=== PATIENT | female | born 1955 | race African-American/Black ===

== ENCOUNTER → 2016-08-18 | Outpatient (CLI) | payer BC ==
[2016-08-18 11:40] LABS: BASOPHILS % 0.9 % (0.0-2.0); EOSINOPHILS % 2.7 % (0.0-5.0); HEMATOCRIT. 38.7 % (36.0-48.0); HEMOGLOBIN. 12.6 g/dL (12.0-16.0); LYMPHOCYTES % 16.1 % (20.0-50.0); MEAN CORPUSCULAR HGB CONC 32.5 g/dL (31.0-37.0); MEAN CORPUSCULAR VOLUME 80.1 fL (81.0-99.0); MEAN PLATELET VOLUME 7.9 fl (7.4-10.4); MONOCYTES % 6.1 % (2.0-8.0); NEUTROPHILS % 74.2 % (40.0-76.0); PLATELET 254 x1000/uL (130-400); RED BLOOD CELL COUNT 4.84 mill/uL (4.2-5.4); RED CELL DISTRIBUTION WIDTH 16.1 % (11.6-14.6); WHITE BLOOD COUNT 6.7 x1000/uL (4.5-11.0)
[2016-08-18 12:09] LABS: ALANINE AMINOTRANSFERASE 18 IU/L (13-61); ALBUMIN 3.5 g/dL (3.4-5.0); ANION GAP 12; CALCIUM 9.3 mg/dL (8.5-10.1); CARBON DIOXIDE 29 mEq/L (21-32); CHLORIDE 105 mEq/L (98-107); HDL CHOLESTEROL 56 mg/dL (40-59); INDEX HEMOLYSI 1 (1-3); INDEX ICTERIC 1 (1-4); INDEX LIPEMIC 1 (1-3); LDL CHOLESTEROL 135 mg/dL (5-100); T4 FREE 1.38 ng/dL (0.76-1.46); TRIGLYCERIDE 85 mg/dL (0-150); UREA NITROGEN BLOOD 20 mg/dL (7-21); eGFR > 60 mL/min (>60)
[2016-08-18 14:09] LABS: CLARITY URINE CLEAR (CLEAR); COLOR URINE YELLOW (YELLOW); GLUCOSE URINE 3+ (NEGATIVE); KETONES URINE NEGATIVE (NEGATIVE); LEUKOCYTE ESTERASE URINE NEGATIVE (NEGATIVE); NITRITE URINE NEGATIVE (NEGATIVE); OCCULT BLOOD URINE NEGATIVE (NEGATIVE); PROTEIN URINE NEGATIVE (NEGATIVE); SPECIFIC GRAVITY URINE 1.024 (1.005-1.030); UROBILINOGEN URINE 0.2 E.U./dL (0.2-1.0)
[2016-08-18 15:20] LABS: SQUAMOUS EPITHELIAL CELL URINE RARE /lpf (RARE/1+)
[2016-08-18 15:21] LABS: BACTERIA URINE TRACE; RBC URINE 0-2 /hpf (0-2); WBC URINE 0-2 /hpf (0-2)
[2016-08-19 13:30] LABS: *CREATININE RANDOM URINE 35.4 mg/dL (Not Estab.); MICROALBUMIN RANDOM URINE 16.6 ug/mL (Not Estab.); MICROALBUMIN/CREATININE RATIO 46.9 mg/g creat (0.0-30.0)
== END | disposition home or self-care (01) ==
LOC: LAB 11:13
PROVIDERS: ATTEND Internal Medicine Endocrinology, Diabetes & Metabolism
DX: E11.9 Type 2 diabetes mellitus without complications (principal); I10 Essential (primary) hypertension; N39.498 Other specified urinary incontinence; E55.9 Vitamin D deficiency, unspecified; E03.9 Hypothyroidism, unspecified
CPT/HCPCS: 36415; 80053; 80061; 81001; 82043; 82306; 82570; 83036; 84439; 84443; 85025; 87086

== ENCOUNTER → 2016-11-23 | Outpatient (CLI) | payer BC ==
[2016-11-23 10:02] LABS: BASOPHILS % 0.8 % (0.0-2.0); EOSINOPHILS % 2.8 % (0.0-5.0); HEMATOCRIT. 37.4 % (36.0-48.0); HEMOGLOBIN. 12.1 g/dL (12.0-16.0); LYMPHOCYTES % 13.7 % (20.0-50.0); MEAN CORPUSCULAR HEMOGLOBIN 26.1 pg (28.0-32.0); MEAN CORPUSCULAR VOLUME 80.7 fL (81.0-99.0); MEAN PLATELET VOLUME 7.7 fl (7.4-10.4); MONOCYTES % 7.1 % (2.0-8.0); NEUTROPHILS % 75.6 % (40.0-76.0); PLATELET 266 x1000/uL (130-400); RED BLOOD CELL COUNT 4.63 mill/uL (4.2-5.4); RED CELL DISTRIBUTION WIDTH 17.1 % (11.6-14.6)
[2016-11-23 10:10] LABS: CLARITY URINE CLEAR (CLEAR); COLOR URINE YELLOW (YELLOW); GLUCOSE URINE 3+ (NEGATIVE); KETONES URINE NEGATIVE (NEGATIVE); LEUKOCYTE ESTERASE URINE 1+ (NEGATIVE); NITRITE URINE NEGATIVE (NEGATIVE); OCCULT BLOOD URINE NEGATIVE (NEGATIVE); PROTEIN URINE NEGATIVE (NEGATIVE); SPECIFIC GRAVITY URINE 1.024 (1.005-1.030); UROBILINOGEN URINE 0.2 E.U./dL (0.2-1.0)
[2016-11-23 10:59] LABS: CARBON DIOXIDE 30 mEq/L (21-32); CHLORIDE 103 mEq/L (98-107); HDL CHOLESTEROL 54 mg/dL (40-59); LDL CHOLESTEROL 102 mg/dL (5-100); T4 FREE 1.22 ng/dL (0.76-1.46)
[2016-11-24 13:08] LABS: MICROALBUMIN RANDOM URINE 11.9 ug/mL (Not Estab.); MICROALBUMIN/CREATININE RATIO 12.5 mg/g creat (0.0-30.0)
== END | disposition home or self-care (01) ==
LOC: LAB 09:31
PROVIDERS: ATTEND Internal Medicine Endocrinology, Diabetes & Metabolism
DX: I10 Essential (primary) hypertension (principal); E11.9 Type 2 diabetes mellitus without complications; E03.9 Hypothyroidism, unspecified; N31.1 Reflex neuropathic bladder, not elsewhere classified; E55.9 Vitamin D deficiency, unspecified
CPT/HCPCS: 36415; 80053; 80061; 81001; 82043; 82306; 82570; 83036; 84439; 84443; 85025; 87086

== ENCOUNTER 2016-12-28 13:32 | Emergency (ER) | payer BC ==
[~2016-12-28] VITALS: Ht 162.6 cm; Wt 128.0 kg
[2016-12-28] MEDS ORDERED: TETANUS, DIPHTHERIA, PERTUSSIS VAC/PF 0.5ML (>7YR OLD) IM ONE (14:30)
[2016-12-28] MEDS ORDERED: BACITRACIN ZINC OINT UDPKT TOP ONE (14:30)
[2016-12-28] MEDS ORDERED: ACETAMINOPHEN 500MG TABLET PO ONE (14:30)
[2016-12-28] MEDS ORDERED: LIDOCAINE HCL 1% 20ML VIAL (Pyxis) INJ MC ONE (17:00)
[2016-12-28 18:51] VITALS: BP 122/78
== END 2016-12-28 18:56 | disposition home or self-care (01) ==
LOC: ER 14:03
DX: S01.81XA Laceration without foreign body of other part of head, initial encounter (principal); I50.9 Heart failure, unspecified; I11.0 Hypertensive heart disease with heart failure; W01.0XXA Fall on same level from slipping, tripping and stumbling without subsequent striking against object, initial encounter; E11.9 Type 2 diabetes mellitus without complications
CPT/HCPCS: 12011; 90471; 90715; 99283; J3490; Z7610

== ENCOUNTER → 2016-12-28 | Outpatient (CLI) | payer BC | END | disposition home or self-care (01) | LOC: PVL 11:09 | PROVIDERS: ATTEND Internal Medicine Endocrinology, Diabetes & Metabolism | DX: I73.9 Peripheral vascular disease, unspecified (principal) | CPT/HCPCS: 93306; 93923 ==

== ENCOUNTER 2017-01-03 12:56 | Emergency (ER) | payer BC ==
[~2017-01-03] VITALS: Ht 162.6 cm; Wt 126.0 kg
[2017-01-03 15:13] VITALS: BP 132/73
[2017-01-03] MEDS ORDERED: BACITRACIN ZINC OINT UDPKT TOP ONE (15:30)
== END 2017-01-03 17:03 | disposition home or self-care (01) ==
LOC: ER 17:03
DX: Z48.02 Encounter for removal of sutures (principal); E11.9 Type 2 diabetes mellitus without complications; I11.0 Hypertensive heart disease with heart failure; I50.9 Heart failure, unspecified
CPT/HCPCS: 99282; Z7610

== ENCOUNTER → 2017-03-01 | Outpatient (CLI) | payer BC ==
[2017-03-01 11:04] LABS: BASOPHILS % 0.9 % (0.0-2.0); HEMATOCRIT. 35.7 % (36.0-48.0); HEMOGLOBIN. 11.8 g/dL (12.0-16.0); LYMPHOCYTES % 16.5 % (20.0-50.0); MEAN CORPUSCULAR HEMOGLOBIN 26.6 pg (28.0-32.0); MEAN CORPUSCULAR VOLUME 80.7 fL (81.0-99.0); MEAN PLATELET VOLUME 7.8 fl (7.4-10.4); MONOCYTES % 8.7 % (2.0-8.0); NEUTROPHILS % 71.9 % (40.0-76.0); PLATELET 234 x1000/uL (130-400); RED BLOOD CELL COUNT 4.43 mill/uL (4.2-5.4); RED CELL DISTRIBUTION WIDTH 16.1 % (11.6-14.6)
[2017-03-01 11:22] LABS: CLARITY URINE CLEAR (CLEAR); COLOR URINE YELLOW (YELLOW); GLUCOSE URINE 4+ (NEGATIVE); KETONES URINE NEGATIVE (NEGATIVE); LEUKOCYTE ESTERASE URINE NEGATIVE (NEGATIVE); NITRITE URINE NEGATIVE (NEGATIVE); OCCULT BLOOD URINE NEGATIVE (NEGATIVE); PH URINE 6.5 (4.5-8.0); PROTEIN URINE NEGATIVE (NEGATIVE); SPECIFIC GRAVITY URINE 1.024 (1.005-1.030); UROBILINOGEN URINE 0.2 E.U./dL (0.2-1.0)
[2017-03-01 12:08] LABS: CARBON DIOXIDE 29 mEq/L (21-32); CHLORIDE 102 mEq/L (98-107); HDL CHOLESTEROL 51 mg/dL (40-59); LDL CHOLESTEROL 96 mg/dL (5-100); T4 FREE 1.38 ng/dL (0.76-1.46)
== END | disposition home or self-care (01) ==
LOC: LAB 10:22
PROVIDERS: ATTEND Internal Medicine Endocrinology, Diabetes & Metabolism
DX: I10 Essential (primary) hypertension (principal); E11.9 Type 2 diabetes mellitus without complications; E78.5 Hyperlipidemia, unspecified; E55.9 Vitamin D deficiency, unspecified
CPT/HCPCS: 36415; 80053; 80061; 81001; 82043; 82306; 82570; 83036; 84439; 84443; 85025; 87086; 87536

== ENCOUNTER → 2017-04-14 | Outpatient (CLI) | payer BC | END | disposition home or self-care (01) | LOC: RAD 11:34 | PROVIDERS: ATTEND Internal Medicine | DX: M17.0 Bilateral primary osteoarthritis of knee (principal) | CPT/HCPCS: 73565 ==

== ENCOUNTER → 2017-04-17 | Outpatient (CLI) | payer BC | END | disposition home or self-care (01) | LOC: RAD 16:09 | PROVIDERS: ATTEND Internal Medicine Endocrinology, Diabetes & Metabolism | DX: M47.896 Other spondylosis, lumbar region (principal) | CPT/HCPCS: 72100 ==

== ENCOUNTER → 2017-06-27 | Outpatient (CLI) | payer BC | END | disposition home or self-care (01) | LOC: CARD 10:22 | PROVIDERS: ATTEND Specialist | DX: I27.20 Pulmonary hypertension, unspecified (principal); R94.31 Abnormal electrocardiogram [ECG] [EKG] | CPT/HCPCS: 93225; 93226 ==

== ENCOUNTER → 2017-07-06 | Outpatient (CLI) | payer BC | END | disposition home or self-care (01) | LOC: MAMMO 10:01 | PROVIDERS: ATTEND Internal Medicine Endocrinology, Diabetes & Metabolism | DX: Z12.31 Encounter for screening mammogram for malignant neoplasm of breast (principal) | CPT/HCPCS: 77067 ==

== ENCOUNTER → 2017-08-01 | Outpatient (CLI) | payer BC ==
[2017-08-01 09:48] LABS: BASOPHILS % 1.1 % (0.0-2.0); HEMATOCRIT. 37.5 % (36.0-48.0); HEMOGLOBIN. 12.1 g/dL (12.0-16.0); LYMPHOCYTES % 15.7 % (20.0-50.0); MEAN CORPUSCULAR HEMOGLOBIN 25.4 pg (28.0-32.0); MEAN CORPUSCULAR VOLUME 78.6 fL (81.0-99.0); NEUTROPHILS % 74.2 % (40.0-76.0); PLATELET 269 x1000/uL (130-400); RED BLOOD CELL COUNT 4.77 mill/uL (4.2-5.4)
[2017-08-01 09:59] LABS: CHLORIDE 104 mEq/L (98-107)
[2017-08-01 10:09] LABS: HDL CHOLESTEROL 54 mg/dL (40-59); LDL CHOLESTEROL 105 mg/dL (5-100); T4 FREE 1.32 ng/dL (0.76-1.46)
[2017-08-02 13:07] LABS: *CREATININE RANDOM URINE 55.1 mg/dL (Not Estab.); MICROALBUMIN RANDOM URINE 17.3 ug/mL (Not Estab.)
== END | disposition home or self-care (01) ==
LOC: LAB 07:12
PROVIDERS: ATTEND Internal Medicine Endocrinology, Diabetes & Metabolism
DX: I10 Essential (primary) hypertension (principal); E11.9 Type 2 diabetes mellitus without complications; E78.4 Other hyperlipidemia; E55.9 Vitamin D deficiency, unspecified
CPT/HCPCS: 36415; 80053; 80061; 82043; 82306; 82570; 83036; 84439; 84443; 85025

== ENCOUNTER 2017-09-23 19:47 | Emergency (ER) | payer BC ==
[~2017-09-23] VITALS: Ht 162.6 cm; Wt 127.0 kg
[2017-09-23] MEDS ORDERED: BACITRACIN ZINC OINT UDPKT TOP ONE (21:15)
[2017-09-23] MEDS ORDERED: LIDOCAINE HCL 1% 20ML VIAL (Pyxis) INJ MC ONE (21:15)
[2017-09-23] MEDS ORDERED: LIDOCAINE HCL/PF 1% 10 MG/ML 30ML VIAL IJ NR (21:16)
[2017-09-23 21:50] LABS: CHLORIDE 106 mEq/L (98-107)
[2017-09-24 02:52] VITALS: BP 126/74
== END 2017-09-24 02:54 | disposition home or self-care (01) ==
LOC: ER 22:32
DX: S91.119A Laceration without foreign body of unspecified toe without damage to nail, initial encounter (principal); B35.3 Tinea pedis; E11.9 Type 2 diabetes mellitus without complications; I10 Essential (primary) hypertension; E05.90 Thyrotoxicosis, unspecified without thyrotoxic crisis or storm; W45.8XXA Other foreign body or object entering through skin, initial encounter; Y93.89 Activity, other specified; Y92.018 Other place in single-family (private) house as the place of occurrence of the external cause
CPT/HCPCS: 36415; 73630; 80048; 99285; Z7610; J3490

== ENCOUNTER → 2017-12-19 | Outpatient (CLI) | payer BC ==
[2017-12-19 14:04] LABS: CHLORIDE 105 mEq/L (98-107)
== END | disposition home or self-care (01) ==
LOC: LAB 13:07
DX: B35.1 Tinea unguium (principal); I10 Essential (primary) hypertension; E11.9 Type 2 diabetes mellitus without complications; Z79.82 Long term (current) use of aspirin
CPT/HCPCS: 36415; 80053

== ENCOUNTER → 2017-12-21 | Outpatient (CLI) | payer BC | END | disposition home or self-care (01) | LOC: RAD 06:15 | PROVIDERS: ATTEND Internal Medicine Endocrinology, Diabetes & Metabolism | DX: M25.511 Pain in right shoulder (principal) | CPT/HCPCS: 73030 ==

== ENCOUNTER → 2018-02-12 | Outpatient (CLI) | payer BC ==
[2018-02-12 09:14] LABS: CHLORIDE 106 mEq/L (98-107)
[2018-02-12 09:16] LABS: BASOPHILS % 0.8 % (0.0-2.0); EOSINOPHILS % 2.8 % (0.0-5.0); HEMATOCRIT. 36.4 % (36.0-48.0); HEMOGLOBIN. 11.9 g/dL (12.0-16.0); LYMPHOCYTES % 18.3 % (20.0-50.0); MEAN CORPUSCULAR VOLUME 79.1 fL (81.0-99.0); MEAN PLATELET VOLUME 7.8 fl (7.4-10.4); MONOCYTES % 7.9 % (2.0-8.0); NEUTROPHILS % 70.2 % (40.0-76.0); PLATELET 277 x1000/uL (130-400); RED CELL DISTRIBUTION WIDTH 17.1 % (11.6-14.6)
[2018-02-12 09:22] LABS: LDL CHOLESTEROL 102 mg/dL (5-100)
[2018-02-12 09:24] LABS: HDL CHOLESTEROL 54 mg/dL (40-59); T4 FREE 1.05 ng/dL (0.76-1.46)
== END | disposition home or self-care (01) ==
LOC: LAB 08:24
PROVIDERS: ATTEND Internal Medicine Endocrinology, Diabetes & Metabolism
DX: E11.9 Type 2 diabetes mellitus without complications (principal); I10 Essential (primary) hypertension; E78.5 Hyperlipidemia, unspecified
CPT/HCPCS: 36415; 80053; 80061; 82306; 83036; 84439; 84443; 85025

== ENCOUNTER → 2018-06-04 | Outpatient (CLI) | payer BC ==
[~2018-06-04] MED LIST: AMLO10TA80 PO; ATOR10TA PO; BIOT25008 PO; BIOT5000 PO; CARV12.545 PO; CHOL500010 MT; CLON-457 PO; CYAN1TAB43 MT; DAPA1TAB3 PO; DOCU-155 PO; FURO-151 MT; FURO40TA5 PO; HYDR25TA MT; INSU100I22 SQ; LOSA100T14 PO; MULT-1116 PO; OMEG-95 PO; POTA10TA2 MT; SYN150 PO; TRAM100C3 PO
[2018-06-04 08:27] LABS: BASOPHILS % 0.7 % (0.0-2.0); EOSINOPHILS % 1.9 % (0.0-5.0); HEMATOCRIT. 38.2 % (36.0-48.0); HEMOGLOBIN. 12.3 g/dL (12.0-16.0); LYMPHOCYTES % 19.4 % (20.0-50.0); MEAN CORPUSCULAR HEMOGLOBIN 26.6 pg (28.0-32.0); MEAN CORPUSCULAR VOLUME 82.2 fL (81.0-99.0); MEAN PLATELET VOLUME 7.8 fl (7.4-10.4); MONOCYTES % 8.2 % (2.0-8.0); NEUTROPHILS % 69.8 % (40.0-76.0); PLATELET 273 x1000/uL (130-400); RED BLOOD CELL COUNT 4.64 mill/uL (4.2-5.4); RED CELL DISTRIBUTION WIDTH 15.5 % (11.6-14.6)
[2018-06-04 09:40] LABS: CHLORIDE 106 mEq/L (98-107)
[2018-06-04 09:50] LABS: HDL CHOLESTEROL 57 mg/dL (40-59)
[2018-06-04 09:53] LABS: T4 FREE 1.27 ng/dL (0.76-1.46)
[2018-06-04 09:54] LABS: LDL CHOLESTEROL 102 mg/dL (5-100)
[2018-06-07 13:06] LABS: *CREATININE RANDOM URINE 68.4 mg/dL (Not Estab.); MICROALBUMIN RANDOM URINE 9.1 ug/mL (Not Estab.)
== END | disposition home or self-care (01) ==
LOC: LAB 07:31
PROVIDERS: ATTEND Internal Medicine Endocrinology, Diabetes & Metabolism
DX: E11.9 Type 2 diabetes mellitus without complications (principal); I10 Essential (primary) hypertension; E78.5 Hyperlipidemia, unspecified; E55.9 Vitamin D deficiency, unspecified; E03.9 Hypothyroidism, unspecified
CPT/HCPCS: 36415; 80061; 82043; 82306; 82570; 83036; 84439; 84443

== ENCOUNTER → 2018-06-05 | Outpatient (CLI) | payer BC | END | disposition home or self-care (01) | LOC: LAB 13:09 | PROVIDERS: ATTEND Internal Medicine Pulmonary Disease | DX: I11.0 Hypertensive heart disease with heart failure (principal); I50.9 Heart failure, unspecified; E11.9 Type 2 diabetes mellitus without complications | CPT/HCPCS: 36415; 83880 ==

== ENCOUNTER → 2018-07-03 | Outpatient (CLI) | payer BC | END | disposition home or self-care (01) | LOC: CARD 07:45 | PROVIDERS: ATTEND Specialist | DX: I51.7 Cardiomegaly (principal) | CPT/HCPCS: 93306 ==

== ENCOUNTER 2018-07-09 05:57 | Emergency (ER) | payer BC ==
[~2018-07-09] VITALS: Ht 162.6 cm; Wt 123.0 kg
[2018-07-09] MEDS ORDERED: HYDROCODONE/ACETAMINOPHEN 5/325MG TABLET PO ONE (07:45)
[2018-07-09 10:11] LABS: HEMATOCRIT. 36.9 % (36.0-48.0); HEMOGLOBIN. 11.8 g/dL (12.0-16.0); MEAN CORPUSCULAR HEMOGLOBIN 25.9 pg (28.0-32.0); MEAN PLATELET VOLUME 7.8 fl (7.4-10.4); PLATELET 259 x1000/uL (130-400); RED BLOOD CELL COUNT 4.55 mill/uL (4.2-5.4); RED CELL DISTRIBUTION WIDTH 15.5 % (11.6-14.6)
[2018-07-09 10:16] LABS: CHLORIDE 107 mEq/L (98-107)
[2018-07-09 10:17] LABS: INR 1.1; PROTHROMBIN TIME 11.4 sec (9.1-11.1)
[2018-07-09 10:57] LABS: PLATELET ESTIMATE NORMAL
[2018-07-09 11:13] VITALS: BP 160/80
== END 2018-07-09 11:23 | disposition home or self-care (01) ==
LOC: ER 05:57
DX: M79.662 Pain in left lower leg (principal); E03.9 Hypothyroidism, unspecified; E11.9 Type 2 diabetes mellitus without complications; M19.90 Unspecified osteoarthritis, unspecified site
CPT/HCPCS: 36415; 93971; 99284

== ENCOUNTER 2018-07-11 14:10 | Inpatient (IN) | payer BC ==
[~2018-07-11] VITALS: Ht 162.6 cm; Wt 135.6 kg
[2018-07-11] MEDS ORDERED: ONDANSETRON HCL 4MG/2ML INJ IV STA (23:19)
[2018-07-11] MEDS ORDERED: MORPHINE SULFATE 4 MG/ML CPJ (NOT FOR IM USE) IV STA (23:19)
[2018-07-11] MEDS ORDERED: SODIUM CHLORIDE 0.9% 1,000 ML IV ONE (23:19)
[2018-07-11] MEDS ORDERED: PIPERACILLIN/TAZ 3.375G PREMIX 50 ML IV ONE (23:30)
[2018-07-11] MEDS ORDERED: VANCOMYCIN 1 G PREMIX 200 ML IV ONE (23:30)
[2018-07-11] MEDS ORDERED: PIPERACILLIN/TAZ 3.375G PREMIX 50 ML IV SCH (23:45)
[2018-07-12 00:34] LABS: HEMATOCRIT. 34.9 % (36.0-48.0); HEMOGLOBIN. 11.4 g/dL (12.0-16.0); MEAN CORPUSCULAR HEMOGLOBIN 26.1 pg (28.0-32.0); MEAN CORPUSCULAR VOLUME 80.3 fL (81.0-99.0); MEAN PLATELET VOLUME 8.3 fl (7.4-10.4); PLATELET 258 x1000/uL (130-400); RED BLOOD CELL COUNT 4.35 mill/uL (4.2-5.4); RED CELL DISTRIBUTION WIDTH 15.3 % (11.6-14.6)
[2018-07-12 00:37] LABS: CHLORIDE 103 mEq/L (98-107)
[2018-07-12 01:06] LABS: PLATELET ESTIMATE NORMAL
[2018-07-12 02:12] LABS: CLARITY URINE CLEAR (CLEAR); COLOR URINE YELLOW (YELLOW); KETONES URINE NEGATIVE (NEGATIVE); LEUKOCYTE ESTERASE URINE 1+ (NEGATIVE); NITRITE URINE NEGATIVE (NEGATIVE); OCCULT BLOOD URINE NEGATIVE (NEGATIVE); PROTEIN URINE TRACE (NEGATIVE); SPECIFIC GRAVITY URINE 1.024 (1.005-1.030); UROBILINOGEN URINE 0.2 E.U./dL (0.2-1.0)
[2018-07-12] MEDS ORDERED: CLONIDINE 0.1MG TABLET PO PRN (05:01)
[2018-07-12 05:30] VITALS: BP 127/61
[2018-07-12 05:31] VITALS: BP 127/52
[2018-07-12] MEDS: HYDROMORPHONE HCL/PF 2MG/ML CPJ IV PRN ×4 (05:34→21:47)
[2018-07-12] MEDS: SODIUM CHLORIDE 0.45% 1,000 ML IV SCH ×2 (05:34→18:10)
[2018-07-12] MEDS ORDERED: AMLO10TA80 PO (05:51)
[2018-07-12] MEDS ORDERED: OMEG-95 PO (05:51)
[2018-07-12] MEDS ORDERED: MULT-1116 PO (05:51)
[2018-07-12] MEDS ORDERED: LOSA100T14 PO (05:51)
[2018-07-12] MEDS ORDERED: CARV12.545 PO (05:51)
[2018-07-12] MEDS ORDERED: SYN150 PO (05:51)
[2018-07-12] MEDS: PIPERACILLIN/TAZ 3.375G PREMIX 50 ML IV SCH ×2 (06:31→14:08)
[2018-07-12 08:00] VITALS: BP 132/52
[2018-07-12] MEDS ORDERED: ENOXAPARIN 40MG/0.4ML SYR SUBCUT SCH (09:00)
[2018-07-12] MEDS: ENOXAPARIN 30MG/0.3ML SYR SUBCUT SCH ×2 (09:06→21:40)
[2018-07-12] MEDS: FUROSEMIDE 40MG TABLET PO SCH (11:41)
[2018-07-12] MEDS: POTASSIUM CHLORIDE 10MEQ TABLET SR PO SCH (11:41)
[2018-07-12] MEDS: LEVOTHYROXINE SODIUM 150MCG TABLET PO SCH (11:41)
[2018-07-12] MEDS: AMLODIPINE 10MG TABLET PO SCH (11:41)
[2018-07-12] MEDS: VANCOMYCIN 1 G PREMIX 200 ML IV SCH (11:42)
[2018-07-12] MEDS: LOSARTAN POTASSIUM 100 MG TABLET PO SCH (11:46)
[2018-07-12 12:00] VITALS: BP 129/72
[2018-07-12] MEDS: SILDENAFIL CITRATE 20MG TABLET PO SCH ×2 (14:13→21:40)
[2018-07-12] MEDS ORDERED: CLINDAMYCIN 600 MG in DEXTROSE 5% WATER 50 ML IV SCH (14:15)
[2018-07-12] MEDS ORDERED: DAPA1TAB3 PO (14:36)
[2018-07-12] MEDS ORDERED: HYDR25TA MT (14:37)
[2018-07-12] MEDS ORDERED: FURO-151 MT (14:38)
[2018-07-12] MEDS ORDERED: POTA10TA2 MT (14:40)
[2018-07-12] MEDS ORDERED: CHOL500010 MT (14:42)
[2018-07-12] MEDS ORDERED: CYAN1TAB43 MT (14:43)
[2018-07-12] MEDS ORDERED: INSU100I22 SQ (14:52)
[2018-07-12 16:00] VITALS: BP 132/74
[2018-07-12 16:13] LABS: HEMATOCRIT. 32.2 % (36.0-48.0); HEMOGLOBIN. 10.5 g/dL (12.0-16.0); MEAN CORPUSCULAR HEMOGLOBIN 26.1 pg (28.0-32.0); MEAN CORPUSCULAR VOLUME 80.3 fL (81.0-99.0); PLATELET 271 x1000/uL (130-400); RED BLOOD CELL COUNT 4.01 mill/uL (4.2-5.4); RED CELL DISTRIBUTION WIDTH 15.3 % (11.6-14.6)
[2018-07-12 16:21] LABS: CHLORIDE 104 mEq/L (98-107)
[2018-07-12 16:28] LABS: HDL CHOLESTEROL 44 mg/dL (40-59); LDL CHOLESTEROL 90 mg/dL (5-100)
[2018-07-12] MEDS: CLINDAMYCIN 600MG PREMIX 50 ML IV SCH (16:30)
[2018-07-12 16:49] LABS: PLATELET ESTIMATE NORMAL
[2018-07-12] MEDS ORDERED: DEXTROSE 50% WATER 50ML SYRINGE IV PRN (19:45)
[2018-07-12 20:00] VITALS: BP 141/58
[2018-07-12] MEDS ORDERED: VANCOMYCIN 1,750 MG in DEXT 5% WATER 500 ML IV SCH (21:00)
[2018-07-12] MEDS: FAMOTIDINE 20MG TABLET PO SCH (21:40)
[2018-07-12] MEDS: CARVEDILOL 12.5MG TABLET PO SCH (21:40)
[2018-07-12] MEDS: BLOOD SUGAR DIAGNOSTIC STRIP TEST SCH (21:40)
[2018-07-12] MEDS: INSULIN LISPRO 100 UNITS/ML SUBCUT SCH (21:41)
[2018-07-12] MEDS: ATORVASTATIN CALCIUM 10MG TABLET PO SCH (21:46)
[2018-07-13] VITALS: BP 112/56
[2018-07-13] MEDS: CLINDAMYCIN 600MG PREMIX 50 ML IV SCH ×4 (00:17→23:08)
[2018-07-13] MEDS: HYDROMORPHONE HCL/PF 2MG/ML CPJ IV PRN ×5 (00:51→19:43)
[2018-07-13 04:00] VITALS: BP 126/66
[2018-07-13] MEDS: VANCOMYCIN 1 G PREMIX 200 ML IV SCH (05:16)
[2018-07-13] MEDS: SILDENAFIL CITRATE 20MG TABLET PO SCH ×3 (05:16→21:25)
[2018-07-13] MEDS: BLOOD SUGAR DIAGNOSTIC STRIP TEST SCH ×4 (06:57→21:26)
[2018-07-13] MEDS ORDERED: BIOT5000 PO (07:08)
[2018-07-13] MEDS ORDERED: DAPA1TAB3 PO (07:10)
[2018-07-13] MEDS ORDERED: ATOR10TA PO (07:11)
[2018-07-13 08:00] VITALS: BP 113/65
[2018-07-13] MEDS: LEVOTHYROXINE SODIUM 150MCG TABLET PO SCH (08:48)
[2018-07-13] MEDS: LOSARTAN POTASSIUM 100 MG TABLET PO SCH (08:48)
[2018-07-13] MEDS: FUROSEMIDE 40MG TABLET PO SCH ×2 (08:48→09:00)
[2018-07-13] MEDS: POTASSIUM CHLORIDE 10MEQ TABLET SR PO SCH ×2 (08:48→09:00)
[2018-07-13] MEDS: CARVEDILOL 12.5MG TABLET PO SCH ×2 (08:49→21:25)
[2018-07-13] MEDS: AMLODIPINE 10MG TABLET PO SCH (08:49)
[2018-07-13] MEDS: ENOXAPARIN 30MG/0.3ML SYR SUBCUT SCH ×2 (08:50→21:26)
[2018-07-13] MEDS: INSULIN LISPRO 100 UNITS/ML SUBCUT SCH ×4 (08:50→21:00)
[2018-07-13] MEDS: SODIUM CHLORIDE 0.45% 1,000 ML IV SCH (10:03)
[2018-07-13 12:00] VITALS: BP 103/48
[2018-07-13 16:00] VITALS: BP 99/57
[2018-07-13] MEDS ORDERED: DOCU-155 PO (18:50)
[2018-07-13] MEDS ORDERED: BIOT25008 PO (18:50)
[2018-07-13] MEDS ORDERED: INSU100I22 SQ (18:53)
[2018-07-13] MEDS ORDERED: FURO40TA5 PO (18:53)
[2018-07-13] MEDS ORDERED: CLON-457 PO (18:53)
[2018-07-13] MEDS ORDERED: TRAM100C3 PO (18:53)
[2018-07-13 20:00] VITALS: BP 125/68
[2018-07-13] MEDS: ATORVASTATIN CALCIUM 10MG TABLET PO SCH (21:25)
[2018-07-13] MEDS: FAMOTIDINE 20MG TABLET PO SCH (21:25)
[2018-07-14] VITALS: BP 118/59
[2018-07-14] MEDS: HYDROMORPHONE HCL/PF 2MG/ML CPJ IV PRN ×4 (00:22→21:28)
[2018-07-14] MEDS: VANCOMYCIN 1 G PREMIX 200 ML IV SCH ×2 (00:23→18:34)
[2018-07-14 04:00] VITALS: BP 121/62
[2018-07-14] MEDS: SODIUM CHLORIDE 0.45% 1,000 ML IV SCH ×2 (05:41→21:48)
[2018-07-14] MEDS: SILDENAFIL CITRATE 20MG TABLET PO SCH ×3 (06:05→21:27)
[2018-07-14] MEDS: BLOOD SUGAR DIAGNOSTIC STRIP TEST SCH ×4 (06:05→20:45)
[2018-07-14 06:19] LABS: BASOPHILS % 0.2 % (0.0-2.0); EOSINOPHILS % 1.1 % (0.0-5.0); HEMATOCRIT. 32.2 % (36.0-48.0); HEMOGLOBIN. 10.4 g/dL (12.0-16.0); LYMPHOCYTES % 11.8 % (20.0-50.0); MEAN CORPUSCULAR HEMOGLOBIN 26.1 pg (28.0-32.0); MEAN CORPUSCULAR VOLUME 80.6 fL (81.0-99.0); MEAN PLATELET VOLUME 7.5 fl (7.4-10.4); MONOCYTES % 12.1 % (2.0-8.0); NEUTROPHILS % 74.8 % (40.0-76.0); PLATELET 284 x1000/uL (130-400); RED CELL DISTRIBUTION WIDTH 14.6 % (11.6-14.6)
[2018-07-14] MEDS: LEVOTHYROXINE SODIUM 150MCG TABLET PO SCH (08:51)
[2018-07-14] MEDS: CLINDAMYCIN 600MG PREMIX 50 ML IV SCH (08:51)
[2018-07-14] MEDS: INSULIN LISPRO 100 UNITS/ML SUBCUT SCH ×4 (08:52→21:27)
[2018-07-14] MEDS: POTASSIUM CHLORIDE 10MEQ TABLET SR PO SCH (08:59)
[2018-07-14] MEDS: LOSARTAN POTASSIUM 100 MG TABLET PO SCH (09:00)
[2018-07-14] MEDS: ENOXAPARIN 30MG/0.3ML SYR SUBCUT SCH ×2 (09:00→21:27)
[2018-07-14] MEDS: CARVEDILOL 12.5MG TABLET PO SCH ×2 (09:00→21:00)
[2018-07-14] MEDS: FUROSEMIDE 40MG TABLET PO SCH (09:00)
[2018-07-14] MEDS: AMLODIPINE 10MG TABLET PO SCH (09:00)
[2018-07-14 10:05] LABS: CREATINE KINASE 45 IU/L (26-192)
[2018-07-14 12:30] VITALS: BP 125/49
[2018-07-14] MEDS ORDERED: ACETAMINOPHEN 325MG TABLET PO PRN (15:00)
[2018-07-14 16:11] VITALS: BP 111/53
[2018-07-14] MEDS: CLINDAMYCIN 600 MG in DEXTROSE 5% WATER 50 ML IV SCH (17:15)
[2018-07-14] MEDS: HYDROCODONE/ACETAMINOPHEN 5/325MG TABLET PO PRN (17:20)
[2018-07-14 20:00] VITALS: BP 104/50
[2018-07-14] MEDS: FAMOTIDINE 20MG TABLET PO SCH (21:27)
[2018-07-14] MEDS: ATORVASTATIN CALCIUM 10MG TABLET PO SCH (21:27)
[2018-07-14] MEDS: DOCUSATE SODIUM 100MG CAPSULE PO PRN (21:45)
[2018-07-15] VITALS (7 sets, daily range): BP systolic 104–129; BP diastolic 49–60
[2018-07-15] MEDS: CLINDAMYCIN 600 MG in DEXTROSE 5% WATER 50 ML IV SCH ×3 (00:06→16:29)
[2018-07-15] MEDS: HYDROMORPHONE HCL/PF 2MG/ML CPJ IV PRN ×4 (02:15→18:20)
[2018-07-15 03:08] LABS: CLARITY URINE CLOUDY (CLEAR); COLOR URINE YELLOW (YELLOW); KETONES URINE NEGATIVE (NEGATIVE); LEUKOCYTE ESTERASE URINE 1+ (NEGATIVE); NITRITE URINE NEGATIVE (NEGATIVE); OCCULT BLOOD URINE NEGATIVE (NEGATIVE); PROTEIN URINE NEGATIVE (NEGATIVE); SPECIFIC GRAVITY URINE 1.014 (1.005-1.030); UROBILINOGEN URINE 0.2 E.U./dL (0.2-1.0)
[2018-07-15 06:42] LABS: HEMOGLOBIN. 10.1 g/dL (12.0-16.0); MEAN CORPUSCULAR HEMOGLOBIN 26.1 pg (28.0-32.0); MEAN CORPUSCULAR VOLUME 80.1 fL (81.0-99.0); MEAN PLATELET VOLUME 7.5 fl (7.4-10.4); PLATELET 313 x1000/uL (130-400); RED BLOOD CELL COUNT 3.86 mill/uL (4.2-5.4); RED CELL DISTRIBUTION WIDTH 15.3 % (11.6-14.6)
[2018-07-15 06:51] LABS: CHLORIDE 102 mEq/L (98-107)
[2018-07-15] MEDS: SILDENAFIL CITRATE 20MG TABLET PO SCH ×3 (07:00→21:09)
[2018-07-15] MEDS: BLOOD SUGAR DIAGNOSTIC STRIP TEST SCH ×4 (07:00→21:01)
[2018-07-15] MEDS: INSULIN LISPRO 100 UNITS/ML SUBCUT SCH ×4 (08:10→21:30)
[2018-07-15] MEDS: POTASSIUM CHLORIDE 10MEQ TABLET SR PO SCH (08:43)
[2018-07-15] MEDS: AMLODIPINE 10MG TABLET PO SCH (08:43)
[2018-07-15] MEDS: CARVEDILOL 12.5MG TABLET PO SCH ×2 (08:44→21:00)
[2018-07-15] MEDS: LEVOTHYROXINE SODIUM 150MCG TABLET PO SCH (08:44)
[2018-07-15] MEDS: ENOXAPARIN 30MG/0.3ML SYR SUBCUT SCH ×2 (08:44→21:01)
[2018-07-15] MEDS: LOSARTAN POTASSIUM 100 MG TABLET PO SCH (08:50)
[2018-07-15] MEDS: VANCOMYCIN 1 G PREMIX 200 ML IV SCH (12:07)
[2018-07-15] MEDS: HYDROCODONE/ACETAMINOPHEN 5/325MG TABLET PO PRN (12:24)
[2018-07-15] MEDS: SODIUM CHLORIDE 0.45% 1,000 ML IV SCH (14:12)
[2018-07-15] MEDS: NYSTATIN POWDER 15GM TOP SCH ×2 (14:29→16:39)
[2018-07-15 19:41] LABS: PLATELET ESTIMATE NORMAL
[2018-07-15] MEDS: ATORVASTATIN CALCIUM 10MG TABLET PO SCH (21:01)
[2018-07-15] MEDS: FAMOTIDINE 20MG TABLET PO SCH (21:01)
[2018-07-16 00:15] VITALS: BP 134/61
[2018-07-16] MEDS: CLINDAMYCIN 600 MG in DEXTROSE 5% WATER 50 ML IV SCH ×3 (00:16→16:52)
[2018-07-16 04:00] VITALS: BP 140/62
[2018-07-16] MEDS: VANCOMYCIN 1 G PREMIX 200 ML IV SCH (05:55)
[2018-07-16] MEDS: SILDENAFIL CITRATE 20MG TABLET PO SCH ×3 (05:56→22:02)
[2018-07-16] MEDS: SODIUM CHLORIDE 0.45% 1,000 ML IV SCH ×2 (05:56→22:15)
[2018-07-16] MEDS: HYDROMORPHONE HCL/PF 2MG/ML CPJ IV PRN ×3 (05:56→22:03)
[2018-07-16] MEDS: BLOOD SUGAR DIAGNOSTIC STRIP TEST SCH ×4 (06:30→21:50)
[2018-07-16 06:55] LABS: HEMATOCRIT. 30.7 % (36.0-48.0); MEAN CORPUSCULAR HEMOGLOBIN 25.8 pg (28.0-32.0); MEAN PLATELET VOLUME 7.3 fl (7.4-10.4); PLATELET 365 x1000/uL (130-400); RED BLOOD CELL COUNT 3.88 mill/uL (4.2-5.4)
[2018-07-16 07:52] LABS: CHLORIDE 101 mEq/L (98-107)
[2018-07-16] MEDS: INSULIN LISPRO 100 UNITS/ML SUBCUT SCH ×4 (07:57→22:03)
[2018-07-16 08:00] VITALS: BP 142/62
[2018-07-16] MEDS: LEVOTHYROXINE SODIUM 150MCG TABLET PO SCH (08:46)
[2018-07-16] MEDS: AMLODIPINE 10MG TABLET PO SCH (08:46)
[2018-07-16] MEDS: POTASSIUM CHLORIDE 10MEQ TABLET SR PO SCH (08:46)
[2018-07-16] MEDS: LOSARTAN POTASSIUM 100 MG TABLET PO SCH (08:46)
[2018-07-16] MEDS: CARVEDILOL 12.5MG TABLET PO SCH ×2 (08:46→22:02)
[2018-07-16] MEDS: ENOXAPARIN 30MG/0.3ML SYR SUBCUT SCH (08:47)
[2018-07-16] MEDS: NYSTATIN POWDER 15GM TOP SCH ×3 (09:48→16:59)
[2018-07-16] MEDS: HYDROCODONE/ACETAMINOPHEN 5/325MG TABLET PO PRN ×2 (10:01→18:42)
[2018-07-16 12:00] VITALS: BP 126/58
[2018-07-16 12:28] LABS: PLATELET ESTIMATE NORMAL
[2018-07-16 16:00] VITALS: BP 157/80
[2018-07-16 20:00] VITALS: BP 118/53
[2018-07-16] MEDS: ENOXAPARIN 40MG/0.4ML SYR SUBCUT SCH (22:01)
[2018-07-16] MEDS: ATORVASTATIN CALCIUM 10MG TABLET PO SCH (22:02)
[2018-07-16] MEDS: FAMOTIDINE 20MG TABLET PO SCH (22:02)
[2018-07-17] VITALS: BP 114/49
[2018-07-17] MEDS: CLINDAMYCIN 600 MG in DEXTROSE 5% WATER 50 ML IV SCH ×3 (00:28→16:48)
[2018-07-17] MEDS: VANCOMYCIN 1 G PREMIX 200 ML IV SCH ×2 (00:28→18:46)
[2018-07-17 04:00] VITALS: BP 133/57
[2018-07-17] MEDS: SILDENAFIL CITRATE 20MG TABLET PO SCH ×3 (05:31→22:00)
[2018-07-17] MEDS: HYDROMORPHONE HCL/PF 2MG/ML CPJ IV PRN ×3 (05:31→15:38)
[2018-07-17] MEDS: ONDANSETRON HCL 4MG/2ML INJ IV PRN (05:39)
[2018-07-17] MEDS: BLOOD SUGAR DIAGNOSTIC STRIP TEST SCH ×4 (06:51→21:00)
[2018-07-17] MEDS: ENOXAPARIN 40MG/0.4ML SYR SUBCUT SCH ×2 (08:35→21:12)
[2018-07-17] MEDS: POTASSIUM CHLORIDE 10MEQ TABLET SR PO SCH (08:35)
[2018-07-17] MEDS: LOSARTAN POTASSIUM 100 MG TABLET PO SCH (08:35)
[2018-07-17] MEDS: LEVOTHYROXINE SODIUM 150MCG TABLET PO SCH (08:35)
[2018-07-17] MEDS: AMLODIPINE 10MG TABLET PO SCH (08:35)
[2018-07-17] MEDS: CARVEDILOL 12.5MG TABLET PO SCH ×2 (08:35→21:12)
[2018-07-17] MEDS: NYSTATIN POWDER 15GM TOP SCH ×3 (08:43→16:48)
[2018-07-17] MEDS: INSULIN LISPRO 100 UNITS/ML SUBCUT SCH ×4 (08:58→21:00)
[2018-07-17 12:00] VITALS: BP 99/44
[2018-07-17 16:00] VITALS: BP 116/43
[2018-07-17 20:00] VITALS: BP 112/47
[2018-07-17] MEDS: FAMOTIDINE 20MG TABLET PO SCH (21:12)
[2018-07-17] MEDS: ATORVASTATIN CALCIUM 10MG TABLET PO SCH (21:12)
[2018-07-18 00:12] VITALS: BP 118/51
[2018-07-18] MEDS: SODIUM CHLORIDE 0.45% 1,000 ML IV SCH ×2 (02:09→22:12)
[2018-07-18] MEDS: HYDROMORPHONE HCL/PF 2MG/ML CPJ IV PRN ×2 (02:54→08:51)
[2018-07-18 04:00] VITALS: BP 126/60
[2018-07-18] MEDS: HYDROCODONE/ACETAMINOPHEN 5/325MG TABLET PO PRN ×2 (05:07→12:11)
[2018-07-18] MEDS: SILDENAFIL CITRATE 20MG TABLET PO SCH ×3 (05:07→21:41)
[2018-07-18 07:10] LABS: HEMATOCRIT. 31.4 % (36.0-48.0); HEMOGLOBIN. 10.1 g/dL (12.0-16.0); MEAN CORPUSCULAR HEMOGLOBIN 25.5 pg (28.0-32.0); MEAN CORPUSCULAR VOLUME 79.3 fL (81.0-99.0); MEAN PLATELET VOLUME 7.1 fl (7.4-10.4); PLATELET 396 x1000/uL (130-400); RED BLOOD CELL COUNT 3.96 mill/uL (4.2-5.4)
[2018-07-18] MEDS: BLOOD SUGAR DIAGNOSTIC STRIP TEST SCH ×4 (07:40→21:55)
[2018-07-18] MEDS: CARVEDILOL 12.5MG TABLET PO SCH ×2 (07:55→21:41)
[2018-07-18] MEDS: ENOXAPARIN 40MG/0.4ML SYR SUBCUT SCH ×2 (07:55→21:42)
[2018-07-18] MEDS: LEVOTHYROXINE SODIUM 150MCG TABLET PO SCH (07:55)
[2018-07-18] MEDS: POTASSIUM CHLORIDE 10MEQ TABLET SR PO SCH (07:55)
[2018-07-18] MEDS: AMLODIPINE 10MG TABLET PO SCH (07:55)
[2018-07-18 08:00] VITALS: BP 143/63
[2018-07-18] MEDS: INSULIN LISPRO 100 UNITS/ML SUBCUT SCH ×4 (08:10→22:10)
[2018-07-18] MEDS: LOSARTAN POTASSIUM 100 MG TABLET PO SCH (08:51)
[2018-07-18] MEDS: NYSTATIN POWDER 15GM TOP SCH ×3 (08:52→17:23)
[2018-07-18 10:34] LABS: PLATELET ESTIMATE NORMAL
[2018-07-18 12:00] VITALS: BP 126/59
[2018-07-18] MEDS: ONDANSETRON HCL 4MG/2ML INJ IV PRN ×2 (12:11→17:19)
[2018-07-18 16:00] VITALS: BP 137/62
[2018-07-18] MEDS: CEFAZOLIN 2,000 MG in DEXT 5% WATER 100 ML IV SCH (18:00)
[2018-07-18] MEDS: FAMOTIDINE 20MG TABLET PO SCH (21:40)
[2018-07-18] MEDS: ATORVASTATIN CALCIUM 10MG TABLET PO SCH (21:41)
[2018-07-18] MEDS ORDERED: SODIUM CHLORIDE 10% FOR INH 15ML VIAL NEB INH NR (23:30)
[2018-07-19] VITALS (7 sets, daily range): BP systolic 107–152; BP diastolic 50–70
[2018-07-19] MEDS: GUAIFENESIN-DM 200MG-20MG/10ML UDC PO PRN ×2 (00:20→12:38)
[2018-07-19] MEDS: HYDROMORPHONE HCL/PF 2MG/ML CPJ IV PRN ×2 (00:21→05:57)
[2018-07-19] MEDS: INSULIN GLARGINE UD 100 UNITS/ML SYR SUBCUT SCH ×2 (00:26→21:27)
[2018-07-19] MEDS: IPRATROPIUM/ALBUTEROL 0.5-3(2.5)MG/3ML NEB HHN SCH ×4 (01:13→21:40)
[2018-07-19] MEDS: ONDANSETRON HCL 4MG/2ML INJ IV PRN ×3 (02:54→17:02)
[2018-07-19] MEDS: HYDROCODONE/ACETAMINOPHEN 5/325MG TABLET PO PRN ×2 (02:55→17:03)
[2018-07-19] MEDS: SILDENAFIL CITRATE 20MG TABLET PO SCH ×3 (05:56→21:26)
[2018-07-19] MEDS: CEFAZOLIN 2,000 MG in DEXT 5% WATER 100 ML IV SCH ×2 (05:57→17:02)
[2018-07-19] MEDS: BLOOD SUGAR DIAGNOSTIC STRIP TEST SCH ×4 (05:58→21:28)
[2018-07-19 07:01] LABS: HEMATOCRIT. 29.8 % (36.0-48.0); HEMOGLOBIN. 9.6 g/dL (12.0-16.0); MEAN CORPUSCULAR HEMOGLOBIN 25.8 pg (28.0-32.0); MEAN CORPUSCULAR VOLUME 79.7 fL (81.0-99.0); MEAN PLATELET VOLUME 6.9 fl (7.4-10.4); PLATELET 376 x1000/uL (130-400); RED BLOOD CELL COUNT 3.74 mill/uL (4.2-5.4); RED CELL DISTRIBUTION WIDTH 15.1 % (11.6-14.6)
[2018-07-19] MEDS: AMLODIPINE 10MG TABLET PO SCH (08:02)
[2018-07-19] MEDS: INSULIN LISPRO 100 UNITS/ML SUBCUT SCH ×4 (08:02→21:28)
[2018-07-19] MEDS: CARVEDILOL 12.5MG TABLET PO SCH ×2 (08:02→21:25)
[2018-07-19] MEDS: LEVOTHYROXINE SODIUM 150MCG TABLET PO SCH (08:02)
[2018-07-19] MEDS: ENOXAPARIN 40MG/0.4ML SYR SUBCUT SCH ×2 (08:02→21:26)
[2018-07-19] MEDS: NYSTATIN POWDER 15GM TOP SCH ×3 (08:02→17:00)
[2018-07-19 12:27] LABS: CREATINE KINASE 62 IU/L (26-192)
[2018-07-19] MEDS: FAMOTIDINE 20MG/2ML VIAL IV SCH ×2 (12:38→21:24)
[2018-07-19 14:13] LABS: PLATELET ESTIMATE NORMAL
[2018-07-19] MEDS: SODIUM CHLORIDE 0.45% 1,000 ML IV SCH (16:13)
[2018-07-19] MEDS: ATORVASTATIN CALCIUM 10MG TABLET PO SCH (21:25)
[2018-07-20 00:26] VITALS: BP 120/49
[2018-07-20] MEDS: HYDROCODONE/ACETAMINOPHEN 10/325MG TABLET PO PRN ×3 (01:27→17:14)
[2018-07-20] MEDS: IPRATROPIUM/ALBUTEROL 0.5-3(2.5)MG/3ML NEB HHN SCH ×5 (02:46→23:56)
[2018-07-20 04:30] VITALS: BP 120/68
[2018-07-20 05:28] LABS: BG BASE EXCESS -4.7 mmol/L (-2.0-2.0); BG CARBOXYHEMOGLOBIN 0.3 % (0.5-1.5); BG DEOXYHEMOGLOBIN 6.6 % (0.0-5.0); BG FRACTION INSPIRED OXYGEN 32; BG HCO3 ACT 20.4 mmol/L (22.0-26.0); BG METHEMOGLOBIN 0.3 % (0.0-1.5); BG OXYGEN SATURATION 93.4 % (92.0-98.5); BG OXYHEMOGLOBIN 92.8 % (94.0-97.0); BG PCO2 37.8 mmHg (35.0-45.0); BG PO2 71.1 mmHg (75.0-100.0); BG SAMPLE SITE RIGHT RADIAL; BG TOTAL HEMOGLOBIN 11.8 g/dL (12.0-18.0); BG VENT MODE NASAL CANNULA
[2018-07-20 06:51] LABS: CHLORIDE 102 mEq/L (98-107); HEMATOCRIT. 27.5 % (36.0-48.0); HEMOGLOBIN. 9.2 g/dL (12.0-16.0); MEAN CORPUSCULAR HEMOGLOBIN 26.1 pg (28.0-32.0); MEAN CORPUSCULAR VOLUME 78.2 fL (81.0-99.0); MEAN PLATELET VOLUME 6.9 fl (7.4-10.4); PLATELET 345 x1000/uL (130-400); RED BLOOD CELL COUNT 3.52 mill/uL (4.2-5.4); RED CELL DISTRIBUTION WIDTH 15.2 % (11.6-14.6)
[2018-07-20 06:59] LABS: AMYLASE 20 IU/L (25-115)
[2018-07-20] MEDS: GUAIFENESIN-DM 200MG-20MG/10ML UDC PO PRN (07:07)
[2018-07-20] MEDS: CEFAZOLIN 2,000 MG in DEXT 5% WATER 100 ML IV SCH ×2 (07:07→18:32)
[2018-07-20] MEDS: SILDENAFIL CITRATE 20MG TABLET PO SCH ×3 (07:07→21:33)
[2018-07-20] MEDS: BLOOD SUGAR DIAGNOSTIC STRIP TEST SCH ×4 (07:40→21:15)
[2018-07-20 08:00] VITALS: BP 126/54
[2018-07-20] MEDS: INSULIN LISPRO 100 UNITS/ML SUBCUT SCH ×4 (08:10→21:33)
[2018-07-20] MEDS: MORPHINE SULFATE 4 MG/ML CPJ (NOT FOR IM USE) IV PRN ×2 (08:17→23:32)
[2018-07-20] MEDS: ONDANSETRON HCL 4MG/2ML INJ IV PRN (08:22)
[2018-07-20] MEDS: NYSTATIN POWDER 15GM TOP SCH ×3 (09:00→17:00)
[2018-07-20] MEDS: AMLODIPINE 10MG TABLET PO SCH (09:50)
[2018-07-20] MEDS: LEVOTHYROXINE SODIUM 150MCG TABLET PO SCH (09:50)
[2018-07-20] MEDS: ENOXAPARIN 40MG/0.4ML SYR SUBCUT SCH ×2 (09:50→21:34)
[2018-07-20] MEDS: CARVEDILOL 12.5MG TABLET PO SCH (09:51)
[2018-07-20] MEDS: FAMOTIDINE 20MG/2ML VIAL IV SCH ×2 (09:51→21:32)
[2018-07-20 11:45] LABS: PLATELET ESTIMATE NORMAL
[2018-07-20] MEDS: METOCLOPRAMIDE HCL 10MG/2ML VIAL IV SCH ×3 (12:13→23:32)
[2018-07-20 12:40] VITALS: BP 122/62
[2018-07-20] MEDS: BENZONATATE 100MG CAPSULE PO PRN (14:25)
[2018-07-20] MEDS: NEBIVOLOL HCL 5 MG TABLET PO SCH (14:30)
[2018-07-20 16:57] VITALS: BP 136/51
[2018-07-20] MEDS: SODIUM CHLORIDE 0.45% 1,000 ML IV SCH (17:15)
[2018-07-20 20:00] VITALS: BP_SYST 132; BP_SYST 137; BP_DIAS 53; BP_DIAS 70
[2018-07-20] MEDS: ATORVASTATIN CALCIUM 10MG TABLET PO SCH (21:32)
[2018-07-20] MEDS: INSULIN GLARGINE UD 100 UNITS/ML SYR SUBCUT SCH (21:34)
[2018-07-21] VITALS (7 sets, daily range): BP systolic 103–155; BP diastolic 53–73
[2018-07-21] MEDS: BENZONATATE 100MG CAPSULE PO PRN (00:17)
[2018-07-21] MEDS: IPRATROPIUM/ALBUTEROL 0.5-3(2.5)MG/3ML NEB HHN SCH ×5 (04:05→20:42)
[2018-07-21] MEDS: METOCLOPRAMIDE HCL 10MG/2ML VIAL IV SCH ×3 (05:15→17:50)
[2018-07-21] MEDS: MORPHINE SULFATE 4 MG/ML CPJ (NOT FOR IM USE) IV PRN ×2 (05:15→13:46)
[2018-07-21] MEDS: CEFAZOLIN 2,000 MG in DEXT 5% WATER 100 ML IV SCH ×2 (05:15→17:50)
[2018-07-21] MEDS: SILDENAFIL CITRATE 20MG TABLET PO SCH ×3 (05:21→21:01)
[2018-07-21 06:06] LABS: HEMATOCRIT. 32.3 % (36.0-48.0); HEMOGLOBIN. 10.8 g/dL (12.0-16.0); MEAN CORPUSCULAR HEMOGLOBIN 26.6 pg (28.0-32.0); MEAN CORPUSCULAR VOLUME 79.4 fL (81.0-99.0); PLATELET 389 x1000/uL (130-400); RED BLOOD CELL COUNT 4.06 mill/uL (4.2-5.4); RED CELL DISTRIBUTION WIDTH 15.4 % (11.6-14.6)
[2018-07-21 06:20] LABS: CHLORIDE 102 mEq/L (98-107)
[2018-07-21 06:27] LABS: HDL CHOLESTEROL 44 mg/dL (40-59)
[2018-07-21 06:28] LABS: LDL CHOLESTEROL 81 mg/dL (5-100)
[2018-07-21] MEDS: FAMOTIDINE 20MG/2ML VIAL IV SCH ×2 (08:26→21:00)
[2018-07-21] MEDS: ENOXAPARIN 40MG/0.4ML SYR SUBCUT SCH ×2 (08:27→20:59)
[2018-07-21] MEDS: LEVOTHYROXINE SODIUM 150MCG TABLET PO SCH (08:27)
[2018-07-21] MEDS: INSULIN LISPRO 100 UNITS/ML SUBCUT SCH ×4 (08:29→21:00)
[2018-07-21] MEDS: BLOOD SUGAR DIAGNOSTIC STRIP TEST SCH ×4 (08:30→20:44)
[2018-07-21] MEDS: AMLODIPINE 10MG TABLET PO SCH (08:41)
[2018-07-21] MEDS: NEBIVOLOL HCL 5 MG TABLET PO SCH (08:41)
[2018-07-21] MEDS: NYSTATIN POWDER 15GM TOP SCH ×3 (08:42→17:44)
[2018-07-21] MEDS: HYDROCODONE/ACETAMINOPHEN 10/325MG TABLET PO PRN ×2 (10:01→17:49)
[2018-07-21 12:21] LABS: PLATELET ESTIMATE NORMAL
[2018-07-21] MEDS: BENZONATATE 100MG CAPSULE PO SCH ×2 (13:47→21:00)
[2018-07-21] MEDS: SODIUM CHLORIDE 0.45% 1,000 ML IV SCH (13:55)
[2018-07-21] MEDS: ACYCLOVIR 200MG CAPSULE PO SCH ×3 (14:00→21:00)
[2018-07-21] MEDS: ATORVASTATIN CALCIUM 10MG TABLET PO SCH (21:00)
[2018-07-21] MEDS: INSULIN GLARGINE UD 100 UNITS/ML SYR SUBCUT SCH (21:01)
[2018-07-22] MEDS: IPRATROPIUM/ALBUTEROL 0.5-3(2.5)MG/3ML NEB HHN SCH ×6 (00:56→20:54)
[2018-07-22 01:58] LABS: CLARITY URINE CLOUDY (CLEAR); COLOR URINE YELLOW (YELLOW); KETONES URINE NEGATIVE (NEGATIVE); LEUKOCYTE ESTERASE URINE NEGATIVE (NEGATIVE); NITRITE URINE NEGATIVE (NEGATIVE); OCCULT BLOOD URINE NEGATIVE (NEGATIVE); PROTEIN URINE TRACE (NEGATIVE); SPECIFIC GRAVITY URINE 1.009 (1.005-1.030); UROBILINOGEN URINE 0.2 E.U./dL (0.2-1.0)
[2018-07-22 04:00] VITALS: BP 118/57
[2018-07-22] MEDS: MORPHINE SULFATE 4 MG/ML CPJ (NOT FOR IM USE) IV PRN ×5 (04:44→22:15)
[2018-07-22] MEDS: DOCUSATE SODIUM 100MG CAPSULE PO PRN ×2 (04:47→08:58)
[2018-07-22] MEDS: CEFAZOLIN 2,000 MG in DEXT 5% WATER 100 ML IV SCH ×2 (05:09→17:42)
[2018-07-22] MEDS: ACYCLOVIR 200MG CAPSULE PO SCH ×3 (05:09→13:33)
[2018-07-22] MEDS: METOCLOPRAMIDE HCL 10MG/2ML VIAL IV SCH ×5 (05:09→23:41)
[2018-07-22] MEDS: SILDENAFIL CITRATE 20MG TABLET PO SCH ×3 (05:09→21:17)
[2018-07-22] MEDS: BENZONATATE 100MG CAPSULE PO SCH ×3 (05:09→21:17)
[2018-07-22 06:09] LABS: BASOPHILS % 0.5 % (0.0-2.0); EOSINOPHILS % 0.9 % (0.0-5.0); HEMATOCRIT. 26.7 % (36.0-48.0); HEMOGLOBIN. 8.7 g/dL (12.0-16.0); MEAN CORPUSCULAR HEMOGLOBIN 25.8 pg (28.0-32.0); MONOCYTES % 14.1 % (2.0-8.0); NEUTROPHILS % 74.5 % (40.0-76.0); PLATELET 332 x1000/uL (130-400); RED BLOOD CELL COUNT 3.39 mill/uL (4.2-5.4); RED CELL DISTRIBUTION WIDTH 15.9 % (11.6-14.6)
[2018-07-22] MEDS: BLOOD SUGAR DIAGNOSTIC STRIP TEST SCH ×4 (07:40→21:19)
[2018-07-22 08:00] VITALS: BP 143/73
[2018-07-22] MEDS: INSULIN LISPRO 100 UNITS/ML SUBCUT SCH ×3 (08:10→21:00)
[2018-07-22] MEDS: NEBIVOLOL HCL 5 MG TABLET PO SCH (08:58)
[2018-07-22] MEDS: LEVOTHYROXINE SODIUM 150MCG TABLET PO SCH (08:58)
[2018-07-22] MEDS: ONDANSETRON HCL 4MG/2ML INJ IV PRN (08:59)
[2018-07-22] MEDS: AMLODIPINE 10MG TABLET PO SCH (08:59)
[2018-07-22] MEDS: FAMOTIDINE 20MG/2ML VIAL IV SCH ×2 (09:00→21:17)
[2018-07-22] MEDS: ENOXAPARIN 40MG/0.4ML SYR SUBCUT SCH ×2 (09:01→21:17)
[2018-07-22] MEDS: NYSTATIN POWDER 15GM TOP SCH ×3 (09:02→17:43)
[2018-07-22] MEDS ORDERED: LACTULOSE 20G/30ML UDC PO SCH (10:45)
[2018-07-22] MEDS: SODIUM CHLORIDE 0.45% 1,000 ML IV SCH (11:10)
[2018-07-22 12:00] VITALS: BP_SYST 127; BP_SYST 69; BP_DIAS 41; BP_DIAS 58
[2018-07-22 12:15] VITALS: BP 72/45
[2018-07-22] MEDS: FLUTICASONE PROPIONATE 50MCG/SPRAY BOTTLE BOTHNSTRLS SCH ×2 (13:33→21:18)
[2018-07-22] MEDS: GUAIFENESIN/DM 600MG/30MG ER TAB 12HR PO PRN (13:34)
[2018-07-22 16:00] VITALS: BP 112/67
[2018-07-22] MEDS: DOCUSATE SODIUM 100MG CAPSULE PO SCH (17:42)
[2018-07-22 20:00] VITALS: BP 121/68
[2018-07-22] MEDS: ATORVASTATIN CALCIUM 10MG TABLET PO SCH (21:17)
[2018-07-22] MEDS: INSULIN GLARGINE UD 100 UNITS/ML SYR SUBCUT SCH (21:17)
[2018-07-22] MEDS: CLOTRIMAZOLE 1% CREAM 30GM TOP SCH (21:18)
[2018-07-22] MEDS: POLYETHYLENE GLYCOL 3350 (17GM) 1 DOSE PACK PO SCH (21:18)
[2018-07-23] VITALS: BP 114/55
[2018-07-23] MEDS: IPRATROPIUM/ALBUTEROL 0.5-3(2.5)MG/3ML NEB HHN SCH ×6 (00:54→21:31)
[2018-07-23] MEDS: SODIUM CHLORIDE 0.45% 1,000 ML IV SCH ×2 (02:43→22:08)
[2018-07-23 04:00] VITALS: BP 136/74
[2018-07-23] MEDS: MORPHINE SULFATE 4 MG/ML CPJ (NOT FOR IM USE) IV PRN (04:50)
[2018-07-23] MEDS: BENZONATATE 100MG CAPSULE PO SCH ×3 (05:18→21:35)
[2018-07-23] MEDS: BLOOD SUGAR DIAGNOSTIC STRIP TEST SCH ×4 (05:19→21:37)
[2018-07-23] MEDS: SILDENAFIL CITRATE 20MG TABLET PO SCH ×3 (05:19→21:36)
[2018-07-23] MEDS: CEFAZOLIN 2,000 MG in DEXT 5% WATER 100 ML IV SCH ×2 (05:19→18:14)
[2018-07-23] MEDS: METOCLOPRAMIDE HCL 10MG/2ML VIAL IV SCH ×4 (05:19→23:18)
[2018-07-23 05:52] LABS: INR 1.5; PARTIAL THROMBOPLASTIN TIME 39.7 sec (23.4-31.0); PROTHROMBIN TIME 15.4 sec (9.1-11.1)
[2018-07-23] MEDS: HYDROCODONE/ACETAMINOPHEN 10/325MG TABLET PO PRN (06:10)
[2018-07-23 08:00] VITALS: BP 133/63
[2018-07-23] MEDS: INSULIN LISPRO 100 UNITS/ML SUBCUT SCH ×4 (08:10→21:00)
[2018-07-23] MEDS: GUAIFENESIN/DM 600MG/30MG ER TAB 12HR PO PRN (08:27)
[2018-07-23] MEDS: DOCUSATE SODIUM 100MG CAPSULE PO SCH ×2 (08:27→18:14)
[2018-07-23] MEDS: ENOXAPARIN 40MG/0.4ML SYR SUBCUT SCH ×2 (08:27→21:35)
[2018-07-23] MEDS: LEVOTHYROXINE SODIUM 150MCG TABLET PO SCH (08:27)
[2018-07-23] MEDS: FAMOTIDINE 20MG/2ML VIAL IV SCH ×2 (08:27→21:36)
[2018-07-23] MEDS: CLOTRIMAZOLE 1% CREAM 30GM TOP SCH ×2 (08:27→21:35)
[2018-07-23] MEDS: NEBIVOLOL HCL 5 MG TABLET PO SCH (08:28)
[2018-07-23] MEDS: AMLODIPINE 10MG TABLET PO SCH (08:28)
[2018-07-23] MEDS: NYSTATIN POWDER 15GM TOP SCH ×3 (08:29→18:15)
[2018-07-23] MEDS: FLUTICASONE PROPIONATE 50MCG/SPRAY BOTTLE BOTHNSTRLS SCH ×2 (08:29→21:37)
[2018-07-23] MEDS ORDERED: NA PHOS,M-B/NA PHOS,DI-BA ENEMA 118ML PR PRN (11:15)
[2018-07-23] MEDS ORDERED: HYDROCODONE/ACETAMINOPHEN 10/325MG TABLET PO PRN ×2 (11:15→12:30)
[2018-07-23 12:00] VITALS: BP 139/68
[2018-07-23] MEDS: HYDROMORPHONE HCL/PF 2MG/ML CPJ IM PRN ×2 (12:23→18:14)
[2018-07-23 16:00] VITALS: BP 126/66
[2018-07-23 20:00] VITALS: BP 115/64
[2018-07-23 20:07] LABS: VITAMIN B12 SERUM >2000 pg/mL pg/mL (211-911)
[2018-07-23] MEDS: POLYETHYLENE GLYCOL 3350 (17GM) 1 DOSE PACK PO SCH (21:00)
[2018-07-23] MEDS: ATORVASTATIN CALCIUM 10MG TABLET PO SCH (21:36)
[2018-07-23 21:43] LABS: TOTAL IRON BINDING CAPACITY 197 ug/dL (250-450)
[2018-07-23] MEDS: INSULIN GLARGINE UD 100 UNITS/ML SYR SUBCUT SCH (22:08)
[2018-07-24] VITALS: BP 144/69
[2018-07-24] MEDS: IPRATROPIUM/ALBUTEROL 0.5-3(2.5)MG/3ML NEB HHN SCH ×6 (01:07→21:18)
[2018-07-24] MEDS: ONDANSETRON HCL 4MG/2ML INJ IV PRN ×2 (02:02→09:04)
[2018-07-24] MEDS: HYDROMORPHONE HCL/PF 2MG/ML CPJ IM PRN ×3 (02:02→18:58)
[2018-07-24 04:00] VITALS: BP 113/56
[2018-07-24] MEDS: BENZONATATE 100MG CAPSULE PO SCH ×3 (05:26→22:30)
[2018-07-24] MEDS: METOCLOPRAMIDE HCL 10MG/2ML VIAL IV SCH ×3 (05:26→18:58)
[2018-07-24] MEDS: SILDENAFIL CITRATE 20MG TABLET PO SCH ×3 (05:26→22:30)
[2018-07-24] MEDS: CEFAZOLIN 2,000 MG in DEXT 5% WATER 100 ML IV SCH ×2 (05:26→18:57)
[2018-07-24] MEDS: BLOOD SUGAR DIAGNOSTIC STRIP TEST SCH ×4 (06:57→21:15)
[2018-07-24 07:36] LABS: BASOPHILS % 0.5 % (0.0-2.0); EOSINOPHILS % 1.5 % (0.0-5.0); HEMATOCRIT. 28.9 % (36.0-48.0); HEMOGLOBIN. 9.3 g/dL (12.0-16.0); LYMPHOCYTES % 10.6 % (20.0-50.0); MEAN CORPUSCULAR HEMOGLOBIN 25.4 pg (28.0-32.0); MEAN CORPUSCULAR VOLUME 79.1 fL (81.0-99.0); MONOCYTES % 10.2 % (2.0-8.0); NEUTROPHILS % 77.2 % (40.0-76.0); PLATELET 376 x1000/uL (130-400); RED BLOOD CELL COUNT 3.66 mill/uL (4.2-5.4); RED CELL DISTRIBUTION WIDTH 15.6 % (11.6-14.6)
[2018-07-24 07:46] LABS: CHLORIDE 102 mEq/L (98-107)
[2018-07-24] MEDS: INSULIN LISPRO 100 UNITS/ML SUBCUT SCH ×4 (08:10→22:00)
[2018-07-24] MEDS: LEVOTHYROXINE SODIUM 150MCG TABLET PO SCH (08:37)
[2018-07-24] MEDS: FAMOTIDINE 20MG/2ML VIAL IV SCH ×2 (08:37→22:29)
[2018-07-24] MEDS: DOCUSATE SODIUM 100MG CAPSULE PO SCH ×2 (08:37→18:58)
[2018-07-24] MEDS: ENOXAPARIN 40MG/0.4ML SYR SUBCUT SCH ×2 (08:38→22:32)
[2018-07-24] MEDS: CLOTRIMAZOLE 1% CREAM 30GM TOP SCH ×2 (08:40→22:14)
[2018-07-24] MEDS: NYSTATIN POWDER 15GM TOP SCH ×3 (08:40→17:00)
[2018-07-24] MEDS: FLUTICASONE PROPIONATE 50MCG/SPRAY BOTTLE BOTHNSTRLS SCH ×2 (09:04→22:29)
[2018-07-24] MEDS: AMLODIPINE 10MG TABLET PO SCH (09:04)
[2018-07-24 12:00] VITALS: BP 154/72
[2018-07-24] MEDS: SODIUM CHLORIDE 0.45% 1,000 ML IV SCH (12:57)
[2018-07-24 16:03] VITALS: BP 125/61
[2018-07-24] MEDS: POLYETHYLENE GLYCOL 3350 (17GM) 1 DOSE PACK PO SCH (21:00)
[2018-07-24] MEDS: BUDESONIDE 0.5MG/2ML NEB HHN SCH (21:18)
[2018-07-24] MEDS: INSULIN GLARGINE UD 100 UNITS/ML SYR SUBCUT SCH (22:00)
[2018-07-24] MEDS: DOCUSATE SODIUM 100MG CAPSULE PO PRN (22:30)
[2018-07-24] MEDS: ATORVASTATIN CALCIUM 10MG TABLET PO SCH (22:32)
[2018-07-25] VITALS (7 sets, daily range): BP systolic 99–142; BP diastolic 50–78
[2018-07-25] MEDS: IPRATROPIUM/ALBUTEROL 0.5-3(2.5)MG/3ML NEB HHN SCH ×3 (01:03→13:54)
[2018-07-25] MEDS: METOCLOPRAMIDE HCL 10MG/2ML VIAL IV SCH ×5 (02:59→23:46)
[2018-07-25] MEDS: HYDROMORPHONE HCL/PF 2MG/ML CPJ IM PRN ×4 (06:23→23:46)
[2018-07-25] MEDS: CEFAZOLIN 2,000 MG in DEXT 5% WATER 100 ML IV SCH ×2 (06:23→17:44)
[2018-07-25] MEDS: BENZONATATE 100MG CAPSULE PO SCH ×3 (06:24→21:39)
[2018-07-25 06:26] LABS: BASOPHILS % 0.6 % (0.0-2.0); EOSINOPHILS % 0.9 % (0.0-5.0); HEMATOCRIT. 28.6 % (36.0-48.0); HEMOGLOBIN. 9.4 g/dL (12.0-16.0); LYMPHOCYTES % 7.3 % (20.0-50.0); MEAN CORPUSCULAR HEMOGLOBIN 25.8 pg (28.0-32.0); MEAN CORPUSCULAR VOLUME 78.8 fL (81.0-99.0); MEAN PLATELET VOLUME 6.8 fl (7.4-10.4); MONOCYTES % 8.6 % (2.0-8.0); NEUTROPHILS % 82.6 % (40.0-76.0); PLATELET 367 x1000/uL (130-400); RED BLOOD CELL COUNT 3.63 mill/uL (4.2-5.4); RED CELL DISTRIBUTION WIDTH 15.2 % (11.6-14.6)
[2018-07-25] MEDS: SILDENAFIL CITRATE 20MG TABLET PO SCH ×3 (06:26→21:39)
[2018-07-25] MEDS: BUDESONIDE 0.5MG/2ML NEB HHN SCH ×2 (07:48→20:55)
[2018-07-25] MEDS: INSULIN LISPRO 100 UNITS/ML SUBCUT SCH ×4 (08:10→21:00)
[2018-07-25] MEDS: BLOOD SUGAR DIAGNOSTIC STRIP TEST SCH ×4 (08:21→21:26)
[2018-07-25] MEDS: LEVOTHYROXINE SODIUM 150MCG TABLET PO SCH (08:29)
[2018-07-25] MEDS: AMLODIPINE 10MG TABLET PO SCH (08:30)
[2018-07-25] MEDS: DOCUSATE SODIUM 100MG CAPSULE PO SCH ×2 (08:30→17:44)
[2018-07-25] MEDS: FAMOTIDINE 20MG/2ML VIAL IV SCH ×2 (08:30→21:40)
[2018-07-25] MEDS: FLUTICASONE PROPIONATE 50MCG/SPRAY BOTTLE BOTHNSTRLS SCH (08:31)
[2018-07-25] MEDS: ENOXAPARIN 40MG/0.4ML SYR SUBCUT SCH ×2 (08:31→21:39)
[2018-07-25] MEDS: CLOTRIMAZOLE 1% CREAM 30GM TOP SCH ×2 (08:40→21:44)
[2018-07-25] MEDS: NYSTATIN POWDER 15GM TOP SCH ×3 (08:40→17:45)
[2018-07-25] MEDS: NEBIVOLOL HCL 5 MG TABLET PO SCH ×2 (14:23→23:30)
[2018-07-25] MEDS ORDERED: IPRATROPIUM/ALBUTEROL 0.5-3(2.5)MG/3ML NEB HHN PRN (14:30)
[2018-07-25] MEDS: FERROUS SULFATE 325MG TABLET PO SCH (17:44)
[2018-07-25] MEDS ORDERED: ASCORBIC ACID 250 MG TABLET PO ONE (18:10)
[2018-07-25] MEDS: HYDROCODONE/ACETAMINOPHEN 5/325MG TABLET PO PRN (21:26)
[2018-07-25] MEDS: ATORVASTATIN CALCIUM 10MG TABLET PO SCH (21:39)
[2018-07-25] MEDS: POLYETHYLENE GLYCOL 3350 (17GM) 1 DOSE PACK PO SCH (21:40)
[2018-07-25] MEDS: INSULIN GLARGINE UD 100 UNITS/ML SYR SUBCUT SCH (21:43)
[2018-07-26 04:00] VITALS: BP 126/56
[2018-07-26] MEDS: SILDENAFIL CITRATE 20MG TABLET PO SCH ×3 (05:51→21:32)
[2018-07-26] MEDS: BENZONATATE 100MG CAPSULE PO SCH ×3 (05:51→21:32)
[2018-07-26] MEDS: HYDROMORPHONE HCL/PF 2MG/ML CPJ IM PRN ×2 (05:51→21:28)
[2018-07-26] MEDS: METOCLOPRAMIDE HCL 10MG/2ML VIAL IV SCH ×3 (06:03→17:01)
[2018-07-26 06:48] LABS: BASOPHILS % 0.8 % (0.0-2.0); EOSINOPHILS % 2.6 % (0.0-5.0); HEMATOCRIT. 26.9 % (36.0-48.0); HEMOGLOBIN. 8.9 g/dL (12.0-16.0); LYMPHOCYTES % 11.8 % (20.0-50.0); MEAN CORPUSCULAR HEMOGLOBIN 25.8 pg (28.0-32.0); MEAN CORPUSCULAR VOLUME 78.3 fL (81.0-99.0); MEAN PLATELET VOLUME 6.7 fl (7.4-10.4); MONOCYTES % 10.7 % (2.0-8.0); NEUTROPHILS % 74.1 % (40.0-76.0); PLATELET 349 x1000/uL (130-400); RED BLOOD CELL COUNT 3.44 mill/uL (4.2-5.4); RED CELL DISTRIBUTION WIDTH 15.7 % (11.6-14.6)
[2018-07-26] MEDS: BLOOD SUGAR DIAGNOSTIC STRIP TEST SCH ×3 (07:40→20:39)
[2018-07-26 08:00] VITALS: BP 105/70
[2018-07-26] MEDS: INSULIN LISPRO 100 UNITS/ML SUBCUT SCH ×3 (08:10→20:40)
[2018-07-26] MEDS: LEVOTHYROXINE SODIUM 150MCG TABLET PO SCH (08:35)
[2018-07-26] MEDS: NEBIVOLOL HCL 5 MG TABLET PO SCH ×2 (09:00→21:33)
[2018-07-26] MEDS: AMLODIPINE 10MG TABLET PO SCH (09:00)
[2018-07-26] MEDS: DOCUSATE SODIUM 100MG CAPSULE PO SCH ×2 (09:07→17:01)
[2018-07-26] MEDS: FERROUS SULFATE 325MG TABLET PO SCH ×3 (09:07→17:01)
[2018-07-26] MEDS: FAMOTIDINE 20MG/2ML VIAL IV SCH ×2 (09:10→21:34)
[2018-07-26] MEDS: HYDROCODONE/ACETAMINOPHEN 5/325MG TABLET PO PRN ×4 (09:10→18:29)
[2018-07-26] MEDS: ENOXAPARIN 40MG/0.4ML SYR SUBCUT SCH ×2 (09:11→21:36)
[2018-07-26] MEDS: GUAIFENESIN/DM 600MG/30MG ER TAB 12HR PO PRN (09:11)
[2018-07-26] MEDS: NYSTATIN POWDER 15GM TOP SCH ×2 (09:24→13:27)
[2018-07-26] MEDS: CLOTRIMAZOLE 1% CREAM 30GM TOP SCH ×2 (09:24→21:40)
[2018-07-26] MEDS: BUDESONIDE 0.5MG/2ML NEB HHN SCH ×2 (09:40→20:34)
[2018-07-26 12:00] VITALS: BP 120/63
[2018-07-26 16:00] VITALS: BP 118/74
[2018-07-26 20:00] VITALS: BP 115/53
[2018-07-26 20:25] VITALS: BP 115/53
[2018-07-26] MEDS: POLYETHYLENE GLYCOL 3350 (17GM) 1 DOSE PACK PO SCH (21:00)
[2018-07-26] MEDS ORDERED: CEFAZOLIN 1000MG PREMIX 50 ML IV SCH ×2 (21:00)
[2018-07-26] MEDS: ATORVASTATIN CALCIUM 10MG TABLET PO SCH (21:32)
[2018-07-26] MEDS: CEFAZOLIN 1000MG PREMIX 50 ML IV SCH (21:35)
[2018-07-26] MEDS: INSULIN GLARGINE UD 100 UNITS/ML SYR SUBCUT SCH (21:38)
[2018-07-27 00:07] VITALS: BP 99/63
[2018-07-27] MEDS: HYDROCODONE/ACETAMINOPHEN 5/325MG TABLET PO PRN ×2 (00:12→11:08)
[2018-07-27] MEDS: METOCLOPRAMIDE HCL 10MG/2ML VIAL IV SCH ×3 (00:12→12:11)
[2018-07-27 04:00] VITALS: BP 138/62
[2018-07-27] MEDS: SILDENAFIL CITRATE 20MG TABLET PO SCH (05:32)
[2018-07-27] MEDS: BENZONATATE 100MG CAPSULE PO SCH (05:32)
[2018-07-27] MEDS: HYDROMORPHONE HCL/PF 2MG/ML CPJ IM PRN ×2 (05:33→09:07)
[2018-07-27 07:11] LABS: QFT MITOGEN VALUE 0.18 IU/mL (.); QFT TB GOLD PLUS Indeterminate (Negative); QFT TB1 AG VALUE 0.03 IU/mL (.)
[2018-07-27 08:00] VITALS: BP 143/74
[2018-07-27] MEDS: LEVOTHYROXINE SODIUM 150MCG TABLET PO SCH (08:21)
[2018-07-27] MEDS: ENOXAPARIN 40MG/0.4ML SYR SUBCUT SCH (09:03)
[2018-07-27] MEDS: AMLODIPINE 10MG TABLET PO SCH (09:04)
[2018-07-27] MEDS: DOCUSATE SODIUM 100MG CAPSULE PO SCH (09:05)
[2018-07-27] MEDS: NEBIVOLOL HCL 5 MG TABLET PO SCH (09:05)
[2018-07-27] MEDS: FERROUS SULFATE 325MG TABLET PO SCH (09:05)
[2018-07-27] MEDS: FAMOTIDINE 20MG/2ML VIAL IV SCH (09:23)
[2018-07-27] MEDS: CLOTRIMAZOLE 1% CREAM 30GM TOP SCH (09:24)
[2018-07-27] MEDS: CEFAZOLIN 1000MG PREMIX 50 ML IV SCH (09:25)
[2018-07-27] MEDS: BLOOD SUGAR DIAGNOSTIC STRIP TEST SCH (12:40)
[2018-07-27 12:41] VITALS: BP 143/74
[2018-07-27] MEDS: INSULIN LISPRO 100 UNITS/ML SUBCUT SCH (13:10)
== END 2018-07-27 14:50 | disposition home or self-care (01) | DRG 871 ==
LOC: ER 14:10 → 7WST 07-12 01:44 → EDBEDREQDT 07-12 01:46 → EDBEDREQTM 07-12 01:46 → EDBEDREQSVC 07-12 01:46 → EDBEDREQ 07-12 01:47 → ENRESERV 07-12 03:48
PROVIDERS: ADMIT Internal Medicine Endocrinology, Diabetes & Metabolism; ATTEND Internal Medicine Endocrinology, Diabetes & Metabolism
DX: A41.9 Sepsis, unspecified organism (principal); J96.00 Acute respiratory failure, unspecified whether with hypoxia or hypercapnia; L03.116 Cellulitis of left lower limb; N17.9 Acute kidney failure, unspecified; E87.1 Hypo-osmolality and hyponatremia; D68.9 Coagulation defect, unspecified; E44.0 Moderate protein-calorie malnutrition; I48.92 Unspecified atrial flutter; Z68.43 Body mass index [BMI] 50.0-59.9, adult; N13.6 Pyonephrosis; I47.1 Supraventricular tachycardia; I50.9 Heart failure, unspecified; I11.0 Hypertensive heart disease with heart failure; M17.0 Bilateral primary osteoarthritis of knee; E78.5 Hyperlipidemia, unspecified; E11.65 Type 2 diabetes mellitus with hyperglycemia; R91.8 Other nonspecific abnormal finding of lung field; E87.5 Hyperkalemia; B02.9 Zoster without complications; D50.9 Iron deficiency anemia, unspecified; E66.01 Morbid (severe) obesity due to excess calories; E78.00 Pure hypercholesterolemia, unspecified; E83.51 Hypocalcemia; E89.0 Postprocedural hypothyroidism; K59.00 Constipation, unspecified; I27.20 Pulmonary hypertension, unspecified; J40 Bronchitis, not specified as acute or chronic; L30.9 Dermatitis, unspecified; M16.0 Bilateral primary osteoarthritis of hip; Z82.49 Family history of ischemic heart disease and other diseases of the circulatory system; Z83.3 Family history of diabetes mellitus; Z86.14 Personal history of Methicillin resistant Staphylococcus aureus infection; Z79.4 Long term (current) use of insulin; Z79.84 Long term (current) use of oral hypoglycemic drugs
CPT/HCPCS: 36415; 36600; 71045; 73701; 74021; 76770; 80048; 80061; 80076; 80202; 82150; 82270; 82375; 82550; 82570; 82607; 82805; 82962; 83540; 83550; 83605; 83735; 83880; 84134; 84145; 84300; 84443; 84484; 84550; 85044; 86480; 87106; 93005; 93923; 93970; 94640; 96365; 96375; 97110; 97116; 97162; 97166; 97530; 97535; 99285; A6261; C1893; J0690; J1170; J1650; J1815; J2270; J2405; J2543; J2765; J3370; J3490; J7030; J7050; J7060; J7131; J7620; J7626; Q9967

== ENCOUNTER 2018-07-31 17:42 | Inpatient (IN) | payer BC ==
[~2018-07-31] VITALS: Ht 162.6 cm; Wt 124.7 kg
[~2018-07-31 17:42] MED LIST changes: -CARV12.545 PO
[2018-08-01 02:17] LABS: BASOPHILS % 0.8 % (0.0-2.0); EOSINOPHILS % 4.3 % (0.0-5.0); HEMATOCRIT. 30.9 % (36.0-48.0); HEMOGLOBIN. 9.8 g/dL (12.0-16.0); MEAN CORPUSCULAR HEMOGLOBIN 25.2 pg (28.0-32.0); MEAN CORPUSCULAR VOLUME 79.3 fL (81.0-99.0); MEAN PLATELET VOLUME 6.5 fl (7.4-10.4); MONOCYTES % 9.4 % (2.0-8.0); NEUTROPHILS % 73.5 % (40.0-76.0); PLATELET 327 x1000/uL (130-400); RED BLOOD CELL COUNT 3.89 mill/uL (4.2-5.4); RED CELL DISTRIBUTION WIDTH 16.2 % (11.6-14.6)
[2018-08-01 02:22] LABS: CHLORIDE 110 mEq/L (98-107)
[2018-08-01 02:30] LABS: CREATINE KINASE 129 IU/L (26-192)
[2018-08-01] MEDS ORDERED: FUROSEMIDE 40MG/4ML VIAL IVP ONE (05:00)
[2018-08-01] MEDS ORDERED: ACETAMINOPHEN 325MG TABLET PO PRN (05:45)
[2018-08-01 07:27] LABS: CLARITY URINE CLEAR (CLEAR); COLOR URINE YELLOW (YELLOW); KETONES URINE NEGATIVE (NEGATIVE); LEUKOCYTE ESTERASE URINE 1+ (NEGATIVE); NITRITE URINE NEGATIVE (NEGATIVE); OCCULT BLOOD URINE NEGATIVE (NEGATIVE); PROTEIN URINE 1+ (NEGATIVE); SPECIFIC GRAVITY URINE 1.014 (1.005-1.030); UROBILINOGEN URINE 0.2 E.U./dL (0.2-1.0)
[2018-08-01] MEDS ORDERED: INSULIN LISPRO 100 UNITS/ML SUBCUT SCH (07:50)
[2018-08-01] MEDS ORDERED: FUROSEMIDE 40MG/4ML VIAL IVP SCH (09:00)
[2018-08-01] MEDS: AMLODIPINE 10MG TABLET PO SCH (13:07)
[2018-08-01] MEDS: CEPHALEXIN 250MG CAPSULE PO SCH ×2 (13:09→23:10)
[2018-08-01] MEDS: BLOOD SUGAR DIAGNOSTIC STRIP TEST SCH ×3 (13:15→21:00)
[2018-08-01] MEDS: INSULIN LISPRO (LOW DOSE) 100 UNITS/ML SUBCUT SCH ×2 (13:17→20:15)
[2018-08-01] MEDS ORDERED: DEXTROSE 50% WATER 50ML SYRINGE IV PRN (13:30)
[2018-08-01] MEDS ORDERED: LEVOTHYROXINE SODIUM 150MCG TABLET PO SCH (14:00)
[2018-08-01] MEDS ORDERED: CLONIDINE 0.1MG TABLET PO PRN (14:30)
[2018-08-01] MEDS ORDERED: HYDRALAZINE 20MG/ML VIAL IV PRN (14:30)
[2018-08-01] MEDS ORDERED: POTASSIUM CHLORIDE 20MEQ TABLET SR PO NR ×2 (14:30→16:15)
[2018-08-01] MEDS ORDERED: LOSARTAN POTASSIUM 25 MG TABLET PO NR (16:15)
[2018-08-01] MEDS ORDERED: NEBIVOLOL HCL 5 MG TABLET PO NR (16:15)
[2018-08-01] MEDS: FUROSEMIDE 40MG/4ML VIAL IVP SCH (17:00)
[2018-08-01] MEDS: HYDROCODONE/ACETAMINOPHEN 10/325MG TABLET PO PRN (18:36)
[2018-08-01] MEDS ORDERED: POTASSIUM CHLORIDE 20MEQ/PACKET PO NR (19:15)
[2018-08-01] MEDS: FAMOTIDINE 20MG TABLET PO SCH (20:00)
[2018-08-01] MEDS ORDERED: INSULIN GLARGINE UD 100 UNITS/ML SYR SUBCUT SCH (22:00)
[2018-08-01 23:00] VITALS: BP_SYST 146; BP_SYST 149; BP_DIAS 68
[2018-08-01] MEDS: NEBIVOLOL HCL 5 MG TABLET PO SCH (23:10)
[2018-08-01] MEDS: LOSARTAN POTASSIUM 25 MG TABLET PO SCH (23:10)
[2018-08-02] VITALS: BP 140/68
[2018-08-02] MEDS: ATORVASTATIN CALCIUM 10MG TABLET PO SCH ×2 (00:26→21:13)
[2018-08-02] MEDS: HYDROCODONE/ACETAMINOPHEN 10/325MG TABLET PO PRN ×2 (00:27→22:51)
[2018-08-02] MEDS: INSULIN GLARGINE UD 100 UNITS/ML SYR SUBCUT SCH ×2 (00:28→22:22)
[2018-08-02 04:00] VITALS: BP 126/87
[2018-08-02] MEDS: IPRATROPIUM/ALBUTEROL 0.5-3(2.5)MG/3ML NEB HHN SCH ×5 (04:15→22:33)
[2018-08-02] MEDS: SILDENAFIL CITRATE 20MG TABLET PO SCH ×4 (05:39→21:14)
[2018-08-02] MEDS: BLOOD SUGAR DIAGNOSTIC STRIP TEST SCH ×4 (06:14→20:59)
[2018-08-02] MEDS: INSULIN LISPRO (LOW DOSE) 100 UNITS/ML SUBCUT SCH ×3 (06:14→17:10)
[2018-08-02] MEDS: LEVOTHYROXINE SODIUM 150MCG TABLET PO SCH (06:30)
[2018-08-02 07:18] LABS: HEMATOCRIT. 27.3 % (36.0-48.0); HEMOGLOBIN. 8.8 g/dL (12.0-16.0); MEAN CORPUSCULAR HEMOGLOBIN 25.4 pg (28.0-32.0); MEAN CORPUSCULAR VOLUME 79.2 fL (81.0-99.0); PLATELET 306 x1000/uL (130-400); RED BLOOD CELL COUNT 3.45 mill/uL (4.2-5.4); RED CELL DISTRIBUTION WIDTH 16.8 % (11.6-14.6)
[2018-08-02 07:21] LABS: CHLORIDE 107 mEq/L (98-107)
[2018-08-02 07:30] VITALS: BP 126/66
[2018-08-02] MEDS: BUDESONIDE 0.5MG/2ML NEB HHN SCH ×2 (08:54→22:23)
[2018-08-02] MEDS ORDERED: POTASSIUM CHLORIDE 20MEQ TABLET SR PO SCH (09:00)
[2018-08-02] MEDS: LOSARTAN POTASSIUM 25 MG TABLET PO SCH ×2 (09:00→21:00)
[2018-08-02] MEDS: POTASSIUM CHLORIDE 20MEQ TABLET SR PO SCH ×2 (09:35→17:00)
[2018-08-02] MEDS: FERROUS SULFATE 325MG TABLET PO SCH ×3 (09:35→18:00)
[2018-08-02] MEDS: FUROSEMIDE 40MG/4ML VIAL IVP SCH ×2 (09:35→17:59)
[2018-08-02] MEDS: CEPHALEXIN 250MG CAPSULE PO SCH (09:35)
[2018-08-02] MEDS: AMLODIPINE 10MG TABLET PO SCH (09:36)
[2018-08-02] MEDS: NEBIVOLOL HCL 5 MG TABLET PO SCH ×2 (09:41→21:15)
[2018-08-02 10:33] LABS: PLATELET ESTIMATE NORMAL
[2018-08-02] MEDS ORDERED: MAGNESIUM 2 G PREMIX 50 ML IV SCH (11:00)
[2018-08-02 11:53] VITALS: BP 134/57
[2018-08-02] MEDS: SILVER SULFADIAZINE 1% CREAM 50GM TOP SCH (13:22)
[2018-08-02] MEDS: HYDROMORPHONE HCL/PF 2MG/ML CPJ IV PRN ×2 (13:24→18:06)
[2018-08-02] MEDS ORDERED: FUROSEMIDE 40MG/4ML VIAL IVP SCH (13:30)
[2018-08-02] MEDS ORDERED: POTASSIUM CHLORIDE 20MEQ/PACKET PO SCH ×2 (13:30→17:00)
[2018-08-02] MEDS ORDERED: MAGNESIUM 1 G PREMIX 100 ML IV SCH (15:00)
[2018-08-02 16:06] VITALS: BP 118/55
[2018-08-02] MEDS: METOCLOPRAMIDE HCL 5MG TABLET PO SCH ×2 (17:10→21:00)
[2018-08-02] MEDS: FAMOTIDINE 20MG TABLET PO SCH (18:01)
[2018-08-02] MEDS ORDERED: ONDANSETRON HCL 4MG/2ML INJ IV PRN (18:45)
[2018-08-02 19:37] LABS: AMYLASE 28 IU/L (25-115)
[2018-08-02 20:39] VITALS: BP 125/56
[2018-08-03 00:15] VITALS: BP 123/60
[2018-08-03] MEDS: IPRATROPIUM/ALBUTEROL 0.5-3(2.5)MG/3ML NEB HHN SCH ×6 (01:26→22:33)
[2018-08-03 04:00] VITALS: BP 109/50
[2018-08-03] MEDS: BLOOD SUGAR DIAGNOSTIC STRIP TEST SCH ×4 (05:42→21:37)
[2018-08-03] MEDS: INSULIN LISPRO (LOW DOSE) 100 UNITS/ML SUBCUT SCH ×3 (05:51→16:53)
[2018-08-03] MEDS: LEVOTHYROXINE SODIUM 150MCG TABLET PO SCH (05:51)
[2018-08-03] MEDS: SILDENAFIL CITRATE 20MG TABLET PO SCH ×3 (05:51→21:44)
[2018-08-03] MEDS: METOCLOPRAMIDE HCL 5MG TABLET PO SCH ×4 (05:51→21:00)
[2018-08-03 07:04] LABS: BASOPHILS % 0.7 % (0.0-2.0); HEMATOCRIT. 25.1 % (36.0-48.0); LYMPHOCYTES % 15.1 % (20.0-50.0); MEAN CORPUSCULAR HEMOGLOBIN 25.5 pg (28.0-32.0); MEAN CORPUSCULAR VOLUME 79.8 fL (81.0-99.0); MEAN PLATELET VOLUME 7.2 fl (7.4-10.4); MONOCYTES % 11.9 % (2.0-8.0); NEUTROPHILS % 69.3 % (40.0-76.0); PLATELET 252 x1000/uL (130-400); RED BLOOD CELL COUNT 3.14 mill/uL (4.2-5.4); RED CELL DISTRIBUTION WIDTH 16.7 % (11.6-14.6)
[2018-08-03] MEDS: BUDESONIDE 0.5MG/2ML NEB HHN SCH ×2 (07:43→22:33)
[2018-08-03 08:00] VITALS: BP 117/60
[2018-08-03] MEDS: FERROUS SULFATE 325MG TABLET PO SCH ×3 (08:46→16:52)
[2018-08-03] MEDS: LACTOBACILLUS GG CAPSULE PO SCH (08:46)
[2018-08-03] MEDS: AMLODIPINE 10MG TABLET PO SCH (08:47)
[2018-08-03] MEDS: NEBIVOLOL HCL 5 MG TABLET PO SCH ×2 (08:49→21:00)
[2018-08-03] MEDS: POTASSIUM CHLORIDE 20MEQ TABLET SR PO SCH ×2 (08:49→16:52)
[2018-08-03] MEDS: FUROSEMIDE 40MG/4ML VIAL IVP SCH ×2 (08:50→16:51)
[2018-08-03] MEDS: LOSARTAN POTASSIUM 25 MG TABLET PO SCH ×2 (09:00→21:00)
[2018-08-03] MEDS: HYDROCODONE/ACETAMINOPHEN 10/325MG TABLET PO PRN (10:39)
[2018-08-03] MEDS ORDERED: POTASSIUM CHLORIDE 20MEQ TABLET SR PO SCH (11:00)
[2018-08-03] MEDS: GABAPENTIN 100MG CAPSULE PO SCH ×3 (11:37→21:46)
[2018-08-03 12:00] VITALS: BP 130/63
[2018-08-03] MEDS ORDERED: MAGNESIUM 2 G PREMIX 50 ML IV SCH (12:00)
[2018-08-03] MEDS: SILVER SULFADIAZINE 1% CREAM 50GM TOP SCH (12:27)
[2018-08-03] MEDS ORDERED: POTASSIUM CHLORIDE 20MEQ/PACKET PO SCH (12:30)
[2018-08-03] MEDS ORDERED: FUROSEMIDE 40MG/4ML VIAL IVP SCH (12:30)
[2018-08-03 16:00] VITALS: BP 114/54
[2018-08-03 20:00] VITALS: BP 103/50
[2018-08-03] MEDS: FAMOTIDINE 20MG TABLET PO SCH (21:44)
[2018-08-03] MEDS: ATORVASTATIN CALCIUM 10MG TABLET PO SCH (21:46)
[2018-08-03] MEDS: INSULIN GLARGINE UD 100 UNITS/ML SYR SUBCUT SCH (21:48)
[2018-08-04] VITALS: BP 131/63
[2018-08-04 04:00] VITALS: BP 129/64
[2018-08-04] MEDS: IPRATROPIUM/ALBUTEROL 0.5-3(2.5)MG/3ML NEB HHN SCH ×5 (05:48→20:35)
[2018-08-04] MEDS: BLOOD SUGAR DIAGNOSTIC STRIP TEST SCH ×4 (06:05→20:49)
[2018-08-04] MEDS: LEVOTHYROXINE SODIUM 150MCG TABLET PO SCH (06:09)
[2018-08-04] MEDS: SILDENAFIL CITRATE 20MG TABLET PO SCH ×3 (06:09→21:26)
[2018-08-04] MEDS: GABAPENTIN 100MG CAPSULE PO SCH ×3 (06:09→21:27)
[2018-08-04] MEDS: HYDROCODONE/ACETAMINOPHEN 10/325MG TABLET PO PRN ×2 (06:10→12:22)
[2018-08-04 06:41] LABS: BASOPHILS % 0.7 % (0.0-2.0); EOSINOPHILS % 3.5 % (0.0-5.0); HEMATOCRIT. 27.1 % (36.0-48.0); HEMOGLOBIN. 8.7 g/dL (12.0-16.0); LYMPHOCYTES % 16.8 % (20.0-50.0); MEAN CORPUSCULAR HEMOGLOBIN 25.5 pg (28.0-32.0); MEAN CORPUSCULAR VOLUME 79.3 fL (81.0-99.0); MEAN PLATELET VOLUME 7.4 fl (7.4-10.4); MONOCYTES % 9.9 % (2.0-8.0); NEUTROPHILS % 69.1 % (40.0-76.0); PLATELET 260 x1000/uL (130-400); RED BLOOD CELL COUNT 3.42 mill/uL (4.2-5.4)
[2018-08-04] MEDS: INSULIN LISPRO (LOW DOSE) 100 UNITS/ML SUBCUT SCH ×3 (07:02→17:16)
[2018-08-04] MEDS: METOCLOPRAMIDE HCL 5MG TABLET PO SCH ×4 (07:10→21:00)
[2018-08-04 08:00] VITALS: BP 134/59
[2018-08-04 08:25] LABS: CHLORIDE 107 mEq/L (98-107)
[2018-08-04] MEDS: BUDESONIDE 0.5MG/2ML NEB HHN SCH ×2 (08:43→20:31)
[2018-08-04 08:44] LABS: PHOSPHORUS 3.2 mg/dL (2.5-4.9)
[2018-08-04] MEDS: SILVER SULFADIAZINE 1% CREAM 50GM TOP SCH (09:07)
[2018-08-04] MEDS: AMLODIPINE 10MG TABLET PO SCH (09:07)
[2018-08-04] MEDS: LACTOBACILLUS GG CAPSULE PO SCH (09:07)
[2018-08-04] MEDS: POTASSIUM CHLORIDE 20MEQ TABLET SR PO SCH ×2 (09:08→17:14)
[2018-08-04] MEDS: LOSARTAN POTASSIUM 25 MG TABLET PO SCH ×3 (09:08→21:26)
[2018-08-04] MEDS: NEBIVOLOL HCL 5 MG TABLET PO SCH ×2 (09:08→21:26)
[2018-08-04] MEDS: FERROUS SULFATE 325MG TABLET PO SCH ×3 (09:08→17:14)
[2018-08-04] MEDS: FUROSEMIDE 40MG/4ML VIAL IVP SCH ×2 (09:09→17:14)
[2018-08-04 12:00] VITALS: BP 121/56
[2018-08-04] MEDS ORDERED: MAGNESIUM 2 G PREMIX 50 ML IV SCH (13:00)
[2018-08-04 15:53] VITALS: BP 114/55
[2018-08-04 16:00] LABS: PLATELET ESTIMATE NORMAL
[2018-08-04] MEDS: FAMOTIDINE 20MG TABLET PO SCH (18:33)
[2018-08-04 20:00] VITALS: BP 123/60
[2018-08-04] MEDS: ATORVASTATIN CALCIUM 10MG TABLET PO SCH (21:25)
[2018-08-04] MEDS: INSULIN GLARGINE UD 100 UNITS/ML SYR SUBCUT SCH (22:33)
[2018-08-05] VITALS: BP 130/59
[2018-08-05] MEDS: IPRATROPIUM/ALBUTEROL 0.5-3(2.5)MG/3ML NEB HHN SCH ×6 (00:28→20:20)
[2018-08-05 04:00] VITALS: BP 127/69
[2018-08-05] MEDS: INSULIN LISPRO (LOW DOSE) 100 UNITS/ML SUBCUT SCH ×3 (06:37→17:10)
[2018-08-05] MEDS: BLOOD SUGAR DIAGNOSTIC STRIP TEST SCH ×4 (06:37→21:43)
[2018-08-05] MEDS: LEVOTHYROXINE SODIUM 150MCG TABLET PO SCH (06:40)
[2018-08-05] MEDS: GABAPENTIN 100MG CAPSULE PO SCH ×3 (06:40→21:54)
[2018-08-05] MEDS: SILDENAFIL CITRATE 20MG TABLET PO SCH ×3 (06:41→21:55)
[2018-08-05] MEDS: METOCLOPRAMIDE HCL 5MG TABLET PO SCH ×5 (06:43→21:00)
[2018-08-05 06:47] LABS: BASOPHILS % 0.8 % (0.0-2.0); EOSINOPHILS % 3.9 % (0.0-5.0); HEMATOCRIT. 26.4 % (36.0-48.0); HEMOGLOBIN. 8.5 g/dL (12.0-16.0); LYMPHOCYTES % 16.9 % (20.0-50.0); MEAN CORPUSCULAR HEMOGLOBIN 25.9 pg (28.0-32.0); MEAN CORPUSCULAR VOLUME 80.3 fL (81.0-99.0); MEAN PLATELET VOLUME 7.6 fl (7.4-10.4); MONOCYTES % 11.7 % (2.0-8.0); NEUTROPHILS % 66.7 % (40.0-76.0); PLATELET 246 x1000/uL (130-400); RED BLOOD CELL COUNT 3.29 mill/uL (4.2-5.4); RED CELL DISTRIBUTION WIDTH 16.7 % (11.6-14.6)
[2018-08-05 07:35] LABS: CHLORIDE 109 mEq/L (98-107)
[2018-08-05 07:42] LABS: PHOSPHORUS 3.4 mg/dL (2.5-4.9)
[2018-08-05] MEDS: BUDESONIDE 0.5MG/2ML NEB HHN SCH ×2 (07:52→20:21)
[2018-08-05] MEDS: FERROUS SULFATE 325MG TABLET PO SCH ×3 (08:00→18:06)
[2018-08-05] MEDS: LACTOBACILLUS GG CAPSULE PO SCH (09:00)
[2018-08-05] MEDS: SILVER SULFADIAZINE 1% CREAM 50GM TOP SCH (09:49)
[2018-08-05 09:59] VITALS: BP 122/57
[2018-08-05] MEDS: LOSARTAN POTASSIUM 25 MG TABLET PO SCH ×2 (10:01→21:00)
[2018-08-05] MEDS: FUROSEMIDE 40MG/4ML VIAL IVP SCH ×2 (10:01→17:30)
[2018-08-05] MEDS: POTASSIUM CHLORIDE 20MEQ TABLET SR PO SCH ×2 (10:01→17:00)
[2018-08-05] MEDS: AMLODIPINE 10MG TABLET PO SCH (10:02)
[2018-08-05] MEDS: NEBIVOLOL HCL 5 MG TABLET PO SCH ×2 (10:03→21:54)
[2018-08-05 12:03] VITALS: BP 132/64
[2018-08-05 16:18] VITALS: BP 117/58
[2018-08-05 17:35] LABS: BG BASE EXCESS 4.4 mmol/L (-2.0-2.0); BG DEOXYHEMOGLOBIN 9.9 % (0.0-5.0); BG FRACTION INSPIRED OXYGEN 21; BG HCO3 ACT 27.9 mmol/L (22.0-26.0); BG METHEMOGLOBIN 0.3 % (0.0-1.5); BG OXYGEN SATURATION 90.1 % (92.0-98.5); BG OXYHEMOGLOBIN 89.8 % (94.0-97.0); BG PCO2 37.5 mmHg (35.0-45.0); BG PO2 58.6 mmHg (75.0-100.0); BG SAMPLE SITE LEFT RADIAL; BG TOTAL HEMOGLOBIN 10.7 g/dL (12.0-18.0); BG VENT MODE ROOM AIR
[2018-08-05] MEDS: HYDROCODONE/ACETAMINOPHEN 10/325MG TABLET PO PRN (18:04)
[2018-08-05] MEDS: FAMOTIDINE 20MG TABLET PO SCH (18:46)
[2018-08-05 20:00] VITALS: BP 115/66
[2018-08-05] MEDS: ATORVASTATIN CALCIUM 10MG TABLET PO SCH (21:54)
[2018-08-05] MEDS: INSULIN GLARGINE UD 100 UNITS/ML SYR SUBCUT SCH (22:00)
[2018-08-06] VITALS: BP 116/50
[2018-08-06] MEDS: IPRATROPIUM/ALBUTEROL 0.5-3(2.5)MG/3ML NEB HHN SCH ×6 (01:38→23:49)
[2018-08-06 04:00] VITALS: BP 126/58
[2018-08-06] MEDS: SILDENAFIL CITRATE 20MG TABLET PO SCH ×3 (06:13→21:07)
[2018-08-06] MEDS: GABAPENTIN 100MG CAPSULE PO SCH (06:13)
[2018-08-06] MEDS: LEVOTHYROXINE SODIUM 150MCG TABLET PO SCH (06:13)
[2018-08-06] MEDS: BLOOD SUGAR DIAGNOSTIC STRIP TEST SCH ×4 (06:15→21:10)
[2018-08-06] MEDS: METOCLOPRAMIDE HCL 5MG TABLET PO SCH ×4 (06:15→16:58)
[2018-08-06] MEDS: INSULIN LISPRO (LOW DOSE) 100 UNITS/ML SUBCUT SCH ×3 (06:15→18:33)
[2018-08-06 06:49] LABS: CHLORIDE 109 mEq/L (98-107)
[2018-08-06 07:04] LABS: HEMATOCRIT. 27.4 % (36.0-48.0); HEMOGLOBIN. 8.9 g/dL (12.0-16.0); MEAN CORPUSCULAR HEMOGLOBIN 25.9 pg (28.0-32.0); MEAN CORPUSCULAR VOLUME 79.6 fL (81.0-99.0); PLATELET 255 x1000/uL (130-400); RED BLOOD CELL COUNT 3.45 mill/uL (4.2-5.4); RED CELL DISTRIBUTION WIDTH 17.2 % (11.6-14.6)
[2018-08-06 08:00] VITALS: BP 148/64
[2018-08-06] MEDS: BUDESONIDE 0.5MG/2ML NEB HHN SCH ×2 (08:00→20:01)
[2018-08-06] MEDS: FERROUS SULFATE 325MG TABLET PO SCH ×3 (09:02→19:24)
[2018-08-06] MEDS: NEBIVOLOL HCL 5 MG TABLET PO SCH ×2 (09:02→21:07)
[2018-08-06] MEDS: POTASSIUM CHLORIDE 20MEQ TABLET SR PO SCH ×2 (09:02→18:32)
[2018-08-06] MEDS: LACTOBACILLUS GG CAPSULE PO SCH (09:03)
[2018-08-06] MEDS: AMLODIPINE 10MG TABLET PO SCH (09:03)
[2018-08-06 09:10] LABS: BG BASE EXCESS 3.6 mmol/L (-2.0-2.0); BG CARBOXYHEMOGLOBIN 0.3 % (0.5-1.5); BG DEOXYHEMOGLOBIN 5.3 % (0.0-5.0); BG HCO3 ACT 27.1 mmol/L (22.0-26.0); BG METHEMOGLOBIN 0.3 % (0.0-1.5); BG OXYGEN SATURATION 94.7 % (92.0-98.5); BG OXYHEMOGLOBIN 94.1 % (94.0-97.0); BG PCO2 36.7 mmHg (35.0-45.0); BG PH 7.486 (7.350-7.450); BG PO2 72.3 mmHg (75.0-100.0); BG SAMPLE SITE RIGHT RADIAL; BG TOTAL HEMOGLOBIN 9.6 g/dL (12.0-18.0); BG VENT MODE ROOM AIR
[2018-08-06] MEDS: FUROSEMIDE 40MG/4ML VIAL IVP SCH ×2 (09:23→18:32)
[2018-08-06] MEDS: LOSARTAN POTASSIUM 25 MG TABLET PO SCH ×2 (09:23→21:07)
[2018-08-06] MEDS: SILVER SULFADIAZINE 1% CREAM 50GM TOP SCH (09:24)
[2018-08-06 10:44] LABS: PLATELET ESTIMATE NORMAL
[2018-08-06] MEDS ORDERED: MAGNESIUM 2 G PREMIX 50 ML IV ONE (11:00)
[2018-08-06 12:00] VITALS: BP 142/63
[2018-08-06] MEDS: HYDROCODONE/ACETAMINOPHEN 10/325MG TABLET PO PRN ×2 (12:15→18:33)
[2018-08-06] MEDS ORDERED: BUDESONIDE 0.5MG/2ML NEB HHN SCH (12:45)
[2018-08-06] MEDS: GABAPENTIN 300MG CAPSULE PO SCH ×2 (14:26→21:06)
[2018-08-06] MEDS ORDERED: LIDOCAINE HCL/PF 1% 2ML VIAL ONE (14:32)
[2018-08-06 16:00] VITALS: BP 127/60
[2018-08-06] MEDS: FAMOTIDINE 20MG TABLET PO SCH (19:23)
[2018-08-06 20:00] VITALS: BP 135/62
[2018-08-06] MEDS: ATORVASTATIN CALCIUM 10MG TABLET PO SCH (22:01)
[2018-08-06] MEDS: INSULIN GLARGINE UD 100 UNITS/ML SYR SUBCUT SCH (22:01)
[2018-08-07 04:00] VITALS: BP 140/76
[2018-08-07] MEDS: IPRATROPIUM/ALBUTEROL 0.5-3(2.5)MG/3ML NEB HHN SCH ×3 (04:32→13:00)
[2018-08-07] MEDS: BLOOD SUGAR DIAGNOSTIC STRIP TEST SCH ×2 (06:06→12:38)
[2018-08-07] MEDS: LEVOTHYROXINE SODIUM 150MCG TABLET PO SCH (06:06)
[2018-08-07] MEDS: INSULIN LISPRO (LOW DOSE) 100 UNITS/ML SUBCUT SCH ×2 (06:06→12:38)
[2018-08-07] MEDS: GABAPENTIN 300MG CAPSULE PO SCH (06:11)
[2018-08-07] MEDS: SILDENAFIL CITRATE 20MG TABLET PO SCH (06:12)
[2018-08-07 07:23] LABS: HEMOGLOBIN. 8.8 g/dL (12.0-16.0); MEAN CORPUSCULAR HEMOGLOBIN 26.1 pg (28.0-32.0); MEAN CORPUSCULAR VOLUME 79.9 fL (81.0-99.0); PLATELET 268 x1000/uL (130-400); RED BLOOD CELL COUNT 3.38 mill/uL (4.2-5.4); RED CELL DISTRIBUTION WIDTH 17.3 % (11.6-14.6)
[2018-08-07 07:36] LABS: CHLORIDE 108 mEq/L (98-107)
[2018-08-07 08:00] VITALS: BP 109/52
[2018-08-07] MEDS: BUDESONIDE 0.5MG/2ML NEB HHN SCH (08:57)
[2018-08-07] MEDS: AMLODIPINE 10MG TABLET PO SCH (09:00)
[2018-08-07] MEDS: NEBIVOLOL HCL 5 MG TABLET PO SCH (09:00)
[2018-08-07] MEDS: LOSARTAN POTASSIUM 25 MG TABLET PO SCH (09:00)
[2018-08-07] MEDS: POTASSIUM CHLORIDE 20MEQ TABLET SR PO SCH (09:09)
[2018-08-07] MEDS: FAMOTIDINE 20MG TABLET PO SCH (09:10)
[2018-08-07] MEDS: HYDROCODONE/ACETAMINOPHEN 10/325MG TABLET PO PRN (09:11)
[2018-08-07] MEDS: FUROSEMIDE 40MG/4ML VIAL IVP SCH (09:11)
[2018-08-07] MEDS: LACTOBACILLUS GG CAPSULE PO SCH (09:14)
[2018-08-07] MEDS: FERROUS SULFATE 325MG TABLET PO SCH ×2 (09:14→12:38)
[2018-08-07 09:19] VITALS: BP 127/54
[2018-08-07 10:47] VITALS: BP 126/57
[2018-08-07 12:00] VITALS: BP 144/74
[2018-08-07] MEDS: SILVER SULFADIAZINE 1% CREAM 50GM TOP SCH (12:14)
[2018-08-08 00:29] LABS: PLATELET ESTIMATE NORMAL
== END 2018-08-07 14:50 | disposition home or self-care (01) | DRG 682 ==
LOC: ER 18:40 → 8WST 08-01 06:15 → EDBEDREQ 08-01 06:19 → EDBEDREQTM 08-01 06:19 → ENRESERV 08-01 20:50
PROVIDERS: ADMIT Internal Medicine Endocrinology, Diabetes & Metabolism; ATTEND Internal Medicine Endocrinology, Diabetes & Metabolism
DX: N17.9 Acute kidney failure, unspecified (principal); J96.01 Acute respiratory failure with hypoxia; I50.33 Acute on chronic diastolic (congestive) heart failure; L03.116 Cellulitis of left lower limb; E87.0 Hyperosmolality and hypernatremia; I13.0 Hypertensive heart and chronic kidney disease with heart failure and stage 1 through stage 4 chronic kidney disease, or unspecified chronic kidney disease; D68.9 Coagulation defect, unspecified; E44.0 Moderate protein-calorie malnutrition; Z68.42 Body mass index [BMI] 45.0-49.9, adult; E87.1 Hypo-osmolality and hyponatremia; E03.9 Hypothyroidism, unspecified; M17.0 Bilateral primary osteoarthritis of knee; M16.0 Bilateral primary osteoarthritis of hip; E66.01 Morbid (severe) obesity due to excess calories; I27.20 Pulmonary hypertension, unspecified; N18.2 Chronic kidney disease, stage 2 (mild); E11.22 Type 2 diabetes mellitus with diabetic chronic kidney disease; E11.65 Type 2 diabetes mellitus with hyperglycemia; I05.0 Rheumatic mitral stenosis; D50.9 Iron deficiency anemia, unspecified; L30.8 Other specified dermatitis; R11.10 Vomiting, unspecified; T40.2X5A Adverse effect of other opioids, initial encounter; E78.00 Pure hypercholesterolemia, unspecified; E78.5 Hyperlipidemia, unspecified; E83.42 Hypomagnesemia; E87.5 Hyperkalemia; E87.6 Hypokalemia; Z79.4 Long term (current) use of insulin; Z79.890 Hormone replacement therapy; Z79.899 Other long term (current) drug therapy; Z82.49 Family history of ischemic heart disease and other diseases of the circulatory system; Z83.3 Family history of diabetes mellitus; Z88.8 Allergy status to other drugs, medicaments and biological substances; Z71.89 Other specified counseling; Y92.89 Other specified places as the place of occurrence of the external cause
CPT/HCPCS: 36415; 36600; 71045; 71046; 80048; 80061; 82150; 82375; 82550; 82805; 82962; 83036; 83605; 83735; 83880; 84100; 84443; 84484; 85007; 85027; 85379; 93005; 93306; 93970; 94618; 94640; 96374; 97116; 97162; 99285; C1893; J1170; J1815; J1940; J2405; J3475; J3490; J7050; J7620; J7626; J8597

== ENCOUNTER → 2018-09-27 | Outpatient (CLI) | payer BC ==
[2018-09-27 12:30] LABS: BASOPHILS % 0.6 % (0.0-2.0); EOSINOPHILS % 2.4 % (0.0-5.0); HEMATOCRIT. 34.5 % (36.0-48.0); LYMPHOCYTES % 20.1 % (20.0-50.0); MEAN CORPUSCULAR HEMOGLOBIN 25.7 pg (28.0-32.0); MEAN CORPUSCULAR VOLUME 80.9 fL (81.0-99.0); MEAN PLATELET VOLUME 7.8 fl (7.4-10.4); MONOCYTES % 7.9 % (2.0-8.0); PLATELET 301 x1000/uL (130-400); RED BLOOD CELL COUNT 4.27 mill/uL (4.2-5.4); RED CELL DISTRIBUTION WIDTH 18.2 % (11.6-14.6)
[2018-09-27 12:38] LABS: CHLORIDE 108 mEq/L (98-107)
[2018-09-27 12:45] LABS: LDL CHOLESTEROL 93 mg/dL (5-100)
[2018-09-27 12:47] LABS: HDL CHOLESTEROL 57 mg/dL (40-59); T4 FREE 1.07 ng/dL (0.76-1.46)
[2018-09-29 08:17] LABS: MICROALBUMIN RANDOM URINE 25.8 ug/mL (Not Estab.)
== END | disposition home or self-care (01) ==
LOC: LAB 11:44
PROVIDERS: ATTEND Internal Medicine Endocrinology, Diabetes & Metabolism
DX: E78.5 Hyperlipidemia, unspecified (principal); E11.9 Type 2 diabetes mellitus without complications; I10 Essential (primary) hypertension; E03.9 Hypothyroidism, unspecified
CPT/HCPCS: 36415; 80061; 82043; 82306; 82570; 83036; 83735; 84439; 84443; 85651

== ENCOUNTER 2018-10-19 07:29 | Emergency (ER) | payer BC ==
[~2018-10-19] VITALS: Ht 162.6 cm; Wt 119.0 kg
[~2018-10-19 07:29] MED LIST changes: -LOSA100T14 PO; +LOSA100T32 PO
[2018-10-19] MEDS ORDERED: KETOROLAC 60MG/2ML VIAL IM ONE (08:00)
[2018-10-19] MEDS ORDERED: HYDROCODONE/ACETAMINOPHEN 5/325MG TABLET PO ONE (08:00)
[2018-10-19 08:49] VITALS: BP 134/74
== END 2018-10-19 08:49 | disposition home or self-care (01) ==
LOC: ER 07:29
DX: M25.552 Pain in left hip (principal); E11.9 Type 2 diabetes mellitus without complications; I10 Essential (primary) hypertension; I27.20 Pulmonary hypertension, unspecified; Z90.710 Acquired absence of both cervix and uterus; Z79.899 Other long term (current) drug therapy; Z79.4 Long term (current) use of insulin
CPT/HCPCS: 73502; 96372; 99283; J1885

== ENCOUNTER → 2018-11-02 | Outpatient (CLI) | payer BC | END | disposition home or self-care (01) | LOC: US 10:52 | PROVIDERS: ATTEND Internal Medicine | DX: M79.605 Pain in left leg (principal) | CPT/HCPCS: 93971 ==

== ENCOUNTER → 2018-12-04 | Outpatient (CLI) | payer BC ==
[2018-12-04 12:59] LABS: BASOPHILS % 0.8 % (0.0-2.0); EOSINOPHILS % 2.1 % (0.0-5.0); HEMATOCRIT. 35.2 % (36.0-48.0); HEMOGLOBIN. 11.4 g/dL (12.0-16.0); LYMPHOCYTES % 19.2 % (20.0-50.0); MEAN CORPUSCULAR HEMOGLOBIN 26.2 pg (28.0-32.0); MEAN CORPUSCULAR VOLUME 81.1 fL (81.0-99.0); MEAN PLATELET VOLUME 7.5 fl (7.4-10.4); MONOCYTES % 8.1 % (2.0-8.0); NEUTROPHILS % 69.8 % (40.0-76.0); PLATELET 281 x1000/uL (130-400); RED BLOOD CELL COUNT 4.33 mill/uL (4.2-5.4); RED CELL DISTRIBUTION WIDTH 16.4 % (11.6-14.6)
[2018-12-04 13:06] LABS: CHLORIDE 103 mEq/L (98-107)
[2018-12-04 13:13] LABS: C REACTIVE PROTEIN QUANT 2.7 mg/L (0.0-3.0)
[2018-12-04 13:15] LABS: LDL CHOLESTEROL 103 mg/dL (5-100)
[2018-12-04 13:17] LABS: HDL CHOLESTEROL 55 mg/dL (40-59)
[2018-12-04 13:19] LABS: T4 FREE 1.38 ng/dL (0.76-1.46)
[2018-12-04 13:24] LABS: TOTAL IRON BINDING CAPACITY 290 ug/dL (250-450)
[2018-12-04 13:40] LABS: FERRITIN 61 ng/mL (10-291)
[2018-12-04 14:46] LABS: FOLIC ACID (FOLATE) SERUM >20 ng/mL ng/mL (>5.38)
[2018-12-04 14:57] LABS: VITAMIN B12 SERUM >2000 pg/mL pg/mL (211-911)
[2018-12-08 17:11] LABS: METHYLMALONIC ACID 158 nmol/L (0-378)
== END | disposition home or self-care (01) ==
LOC: LAB 12:22
PROVIDERS: ATTEND Internal Medicine Endocrinology, Diabetes & Metabolism
DX: E11.9 Type 2 diabetes mellitus without complications (principal); E78.5 Hyperlipidemia, unspecified; D64.9 Anemia, unspecified; E03.9 Hypothyroidism, unspecified
CPT/HCPCS: 36415; 80061; 82607; 82728; 82746; 83036; 83540; 83550; 83921; 84439; 84443; 86140

== ENCOUNTER → 2019-04-23 | Outpatient (CLI) | payer BC ==
[2019-04-23 09:04] LABS: BASOPHILS % 0.8 % (0.0-2.0); EOSINOPHILS % 1.1 % (0.0-5.0); HEMATOCRIT. 35.7 % (36.0-48.0); HEMOGLOBIN. 11.6 g/dL (12.0-16.0); LYMPHOCYTES % 17.9 % (20.0-50.0); MEAN CORPUSCULAR VOLUME 83.1 fL (81.0-99.0); MEAN PLATELET VOLUME 8.1 fl (7.4-10.4); MONOCYTES % 8.2 % (2.0-8.0); PLATELET 265 x1000/uL (130-400); RED BLOOD CELL COUNT 4.29 mill/uL (4.2-5.4); RED CELL DISTRIBUTION WIDTH 15.4 % (11.6-14.6)
[2019-04-23 09:13] LABS: CHLORIDE 109 mEq/L (98-107)
[2019-04-23 09:21] LABS: LDL CHOLESTEROL 101 mg/dL (5-100)
[2019-04-23 09:23] LABS: HDL CHOLESTEROL 52 mg/dL (40-59); T4 FREE 1.56 ng/dL (0.76-1.46)
== END | disposition home or self-care (01) ==
LOC: LAB 07:56
PROVIDERS: ATTEND Internal Medicine Endocrinology, Diabetes & Metabolism
DX: I10 Essential (primary) hypertension (principal); E11.9 Type 2 diabetes mellitus without complications; E78.5 Hyperlipidemia, unspecified; E03.9 Hypothyroidism, unspecified
CPT/HCPCS: 36415; 80061; 82306; 83036; 84439; 84443

== ENCOUNTER → 2019-07-10 | Outpatient (CLI) | payer BC ==
[2019-07-10 12:08] LABS: EOSINOPHILS % 1.9 % (0.0-5.0); HEMATOCRIT. 33.8 % (36.0-48.0); HEMOGLOBIN. 11.1 g/dL (12.0-16.0); LYMPHOCYTES % 19.9 % (20.0-50.0); MEAN CORPUSCULAR HEMOGLOBIN 26.7 pg (28.0-32.0); MEAN CORPUSCULAR VOLUME 81.4 fL (81.0-99.0); MONOCYTES % 8.5 % (2.0-8.0); NEUTROPHILS % 68.7 % (40.0-76.0); PLATELET 256 x1000/uL (130-400); RED BLOOD CELL COUNT 4.15 mill/uL (4.2-5.4)
[2019-07-10 12:27] LABS: CHLORIDE 107 mEq/L (98-107)
[2019-07-10 12:38] LABS: LDL CHOLESTEROL 124 mg/dL (5-100)
[2019-07-10 12:39] LABS: HDL CHOLESTEROL 54 mg/dL (40-59); T4 FREE 1.34 ng/dL (0.76-1.46)
== END | disposition home or self-care (01) ==
LOC: LAB 11:36
PROVIDERS: ATTEND Specialist
DX: I48.91 Unspecified atrial fibrillation (principal); I11.9 Hypertensive heart disease without heart failure; E78.2 Mixed hyperlipidemia; E66.3 Overweight; R06.02 Shortness of breath
CPT/HCPCS: 36415; 80053; 80061; 83036; 84439; 84443; 84480; 85025

== ENCOUNTER 2019-08-06 06:13 | Emergency (ER) | payer BC ==
[~2019-08-06] VITALS: Ht 167.6 cm; Wt 91.0 kg
[2019-08-06] MEDS ORDERED: SODIUM CHLORIDE 0.9% 500 ML IV ONE (07:04)
[2019-08-06 07:25] LABS: BASOPHILS % 0.9 % (0.0-2.0); EOSINOPHILS % 1.3 % (0.0-5.0); HEMATOCRIT. 35.9 % (36.0-48.0); HEMOGLOBIN. 11.9 g/dL (12.0-16.0); LYMPHOCYTES % 25.5 % (20.0-50.0); MEAN CORPUSCULAR HEMOGLOBIN 26.6 pg (28.0-32.0); MEAN CORPUSCULAR VOLUME 80.3 fL (81.0-99.0); MEAN PLATELET VOLUME 8.5 fl (7.4-10.4); MONOCYTES % 7.2 % (2.0-8.0); NEUTROPHILS % 65.1 % (40.0-76.0); PLATELET 313 x1000/uL (130-400); RED BLOOD CELL COUNT 4.48 mill/uL (4.2-5.4); RED CELL DISTRIBUTION WIDTH 15.9 % (11.6-14.6)
[2019-08-06 07:27] LABS: CHLORIDE 107 mEq/L (98-107)
[2019-08-06 07:29] LABS: INR 1.1; PROTHROMBIN TIME 11.7 sec (9.6-11.0)
[2019-08-06 09:35] LABS: CLARITY URINE CLEAR (CLEAR); COLOR URINE YELLOW (YELLOW); KETONES URINE NEGATIVE (NEGATIVE); LEUKOCYTE ESTERASE URINE 1+ (NEGATIVE); NITRITE URINE NEGATIVE (NEGATIVE); OCCULT BLOOD URINE NEGATIVE (NEGATIVE); PROTEIN URINE NEGATIVE (NEGATIVE); SPECIFIC GRAVITY URINE 1.014 (1.005-1.030); UROBILINOGEN URINE 0.2 E.U./dL (0.2-1.0)
[2019-08-06 10:30] VITALS: BP 116/71
== END 2019-08-06 11:40 | disposition home or self-care (01) ==
LOC: ER 06:13
DX: E86.0 Dehydration (principal); N39.0 Urinary tract infection, site not specified; R53.1 Weakness; R42 Dizziness and giddiness; I11.0 Hypertensive heart disease with heart failure; I50.9 Heart failure, unspecified; E11.9 Type 2 diabetes mellitus without complications; Z79.899 Other long term (current) drug therapy
CPT/HCPCS: 36415; 71045; 80053; 81003; 82962; 83605; 83880; 84484; 85025; 85610; 87040; 87086; 96360; 96361; 99285; J7040

== ENCOUNTER → 2019-10-16 | Outpatient (CLI) | payer BC ==
[2019-10-16 08:38] LABS: BASOPHILS % 0.9 % (0.0-2.0); EOSINOPHILS % 2.6 % (0.0-5.0); HEMATOCRIT. 32.4 % (36.0-48.0); HEMOGLOBIN. 10.5 g/dL (12.0-16.0); LYMPHOCYTES % 15.2 % (20.0-50.0); MEAN CORPUSCULAR HEMOGLOBIN 25.8 pg (28.0-32.0); MEAN CORPUSCULAR VOLUME 79.4 fL (81.0-99.0); MEAN PLATELET VOLUME 7.7 fl (7.4-10.4); MONOCYTES % 7.4 % (2.0-8.0); NEUTROPHILS % 73.9 % (40.0-76.0); PLATELET 249 x1000/uL (130-400); RED BLOOD CELL COUNT 4.08 mill/uL (4.2-5.4)
[2019-10-16 08:45] LABS: CHLORIDE 111 mEq/L (98-107)
[2019-10-16 08:52] LABS: LDL CHOLESTEROL 87 mg/dL (5-100)
[2019-10-16 08:54] LABS: HDL CHOLESTEROL 50 mg/dL (40-59); TOTAL IRON BINDING CAPACITY 303 ug/dL (250-450)
[2019-10-16 08:56] LABS: T4 FREE 1.62 ng/dL (0.76-1.46)
[2019-10-16 09:49] LABS: FOLIC ACID (FOLATE) SERUM 9.9 ng/mL (>5.38)
[2019-10-17 08:09] LABS: *CREATININE RANDOM URINE 47.8 mg/dL (Not Estab.); MICROALBUMIN RANDOM URINE 10.7 ug/mL (Not Estab.)
[2019-10-17 09:11] LABS: ALBUMIN 3.3 g/dL (2.9-4.4); ALPHA-1-GLOBULIN 0.2 g/dL (0.0-0.4); GAMMA GLOBULINS 0.9 g/dL (0.4-1.8); GLOBULIN TOTAL 3.2 g/dL (2.2-3.9); M-SPIKE Not Observed g/dL (Not Observed); TOTAL PROTEIN SERUM 6.5 g/dL (6.0-8.5); VITAMIN D 25-OH 33.2 ng/mL (30.0-100.0)
== END | disposition home or self-care (01) ==
LOC: LAB 08:02
PROVIDERS: ATTEND Internal Medicine Endocrinology, Diabetes & Metabolism
DX: I10 Essential (primary) hypertension (principal); E11.9 Type 2 diabetes mellitus without complications; E78.5 Hyperlipidemia, unspecified; E03.9 Hypothyroidism, unspecified
CPT/HCPCS: 36415; 80053; 80061; 82043; 82306; 82570; 82607; 82728; 82746; 83036; 83540; 83550; 83921; 84155; 84165; 84439; 84443; 85025

== ENCOUNTER → 2020-01-27 | Outpatient (CLI) | payer BC ==
[2020-01-27 10:48] LABS: BASOPHILS % 0.7 % (0.0-2.0); EOSINOPHILS % 2.9 % (0.0-5.0); HEMATOCRIT. 35.4 % (36.0-48.0); HEMOGLOBIN. 11.4 g/dL (12.0-16.0); LYMPHOCYTES % 18.5 % (20.0-50.0); MEAN CORPUSCULAR HEMOGLOBIN 25.4 pg (28.0-32.0); MEAN CORPUSCULAR VOLUME 78.8 fL (81.0-99.0); MEAN PLATELET VOLUME 7.8 fl (7.4-10.4); MONOCYTES % 7.2 % (2.0-8.0); NEUTROPHILS % 70.7 % (40.0-76.0); PLATELET 248 x1000/uL (130-400); RED BLOOD CELL COUNT 4.49 mill/uL (4.2-5.4); RED CELL DISTRIBUTION WIDTH 17.2 % (11.6-14.6)
[2020-01-27 12:08] LABS: CHLORIDE 109 mEq/L (98-107)
[2020-01-27 12:22] LABS: TOTAL IRON BINDING CAPACITY 359 ug/dL (250-450)
[2020-01-27 12:23] LABS: HDL CHOLESTEROL 55 mg/dL (40-59); LDL CHOLESTEROL 97 mg/dL (5-100)
[2020-01-27 12:26] LABS: T4 FREE 1.38 ng/dL (0.76-1.46)
[2020-01-28 08:11] LABS: *CREATININE RANDOM URINE 50.3 mg/dL (Not Estab.); MICROALBUMIN RANDOM URINE 18.1 ug/mL (Not Estab.)
== END | disposition home or self-care (01) ==
LOC: LAB 09:22
PROVIDERS: ATTEND Internal Medicine Endocrinology, Diabetes & Metabolism
DX: I10 Essential (primary) hypertension (principal); E11.9 Type 2 diabetes mellitus without complications; E03.9 Hypothyroidism, unspecified; D64.9 Anemia, unspecified
CPT/HCPCS: 36415; 80053; 80061; 82043; 82306; 82570; 82728; 83036; 83540; 83550; 84439; 84443; 85025

== ENCOUNTER → 2020-04-13 | Outpatient (CLI) | payer BC | END | disposition home or self-care (01) | LOC: LAB 10:51 | PROVIDERS: ATTEND Internal Medicine Endocrinology, Diabetes & Metabolism | DX: Z20.828 Contact with and (suspected) exposure to other viral communicable diseases (principal) | CPT/HCPCS: C9803; U0003 ==

== ENCOUNTER → 2020-04-15 | Outpatient (CLI) | payer BC | END | disposition home or self-care (01) | LOC: MAMMO 12:43 | PROVIDERS: ATTEND Internal Medicine Endocrinology, Diabetes & Metabolism | DX: Z12.31 Encounter for screening mammogram for malignant neoplasm of breast (principal) | CPT/HCPCS: 77067 ==

== ENCOUNTER → 2020-04-30 | Outpatient (CLI) | payer BC ==
[~2020-04-30] MED LIST changes: +REGADENOSON 0.4 MG/5 ML IV ONE
== END | disposition home or self-care (01) ==
LOC: NM 07:36
PROVIDERS: ATTEND Specialist
DX: R06.02 Shortness of breath (principal); Z20.828 Contact with and (suspected) exposure to other viral communicable diseases; I05.9 Rheumatic mitral valve disease, unspecified; I48.91 Unspecified atrial fibrillation
CPT/HCPCS: 78452; 87426; 93017; 93306; A9500; C1893; J2785

== ENCOUNTER → 2020-05-01 | Outpatient (CLI) | payer BC ==
[~2020-05-01] MED LIST changes: -REGADENOSON 0.4 MG/5 ML IV ONE
== END | disposition home or self-care (01) ==
LOC: RAD 15:58
PROVIDERS: ATTEND Specialist
DX: J98.11 Atelectasis (principal); I05.9 Rheumatic mitral valve disease, unspecified; I25.10 Atherosclerotic heart disease of native coronary artery without angina pectoris; R06.02 Shortness of breath
CPT/HCPCS: 71250

== ENCOUNTER → 2020-07-10 | Outpatient (CLI) | payer BC ==
[2020-07-10 08:26] LABS: BASOPHILS % 0.8 % (0.0-2.0); EOSINOPHILS % 3.7 % (0.0-5.0); HEMATOCRIT. 33.7 % (36.0-48.0); LYMPHOCYTES % 19.2 % (20.0-50.0); MEAN CORPUSCULAR HEMOGLOBIN 25.9 pg (28.0-32.0); MEAN CORPUSCULAR VOLUME 79.1 fL (81.0-99.0); MEAN PLATELET VOLUME 7.7 fl (7.4-10.4); MONOCYTES % 9.6 % (2.0-8.0); NEUTROPHILS % 66.7 % (40.0-76.0); PLATELET 271 x1000/uL (130-400); RED BLOOD CELL COUNT 4.26 mill/uL (4.2-5.4); RED CELL DISTRIBUTION WIDTH 16.5 % (11.6-14.6)
[2020-07-10 08:50] LABS: CHLORIDE 110 mEq/L (98-107)
[2020-07-10 09:10] LABS: HDL CHOLESTEROL 55 mg/dL (40-59)
[2020-07-10 09:11] LABS: LDL CHOLESTEROL 102 mg/dL (5-100); T4 FREE 1.23 ng/dL (0.76-1.46)
== END | disposition home or self-care (01) ==
LOC: LAB 07:29
PROVIDERS: ATTEND Internal Medicine Endocrinology, Diabetes & Metabolism
DX: E11.9 Type 2 diabetes mellitus without complications (principal); E78.5 Hyperlipidemia, unspecified; E03.9 Hypothyroidism, unspecified; E55.9 Vitamin D deficiency, unspecified
CPT/HCPCS: 36415; 80053; 80061; 82306; 83036; 84439; 84443; 85025

== ENCOUNTER → 2020-09-17 | Outpatient (CLI) | payer BC ==
[2020-09-17 10:41] LABS: BASOPHILS % 0.6 % (0.0-2.0); EOSINOPHILS % 2.1 % (0.0-5.0); HEMATOCRIT. 34.5 % (36.0-48.0); HEMOGLOBIN. 11.6 g/dL (12.0-16.0); LYMPHOCYTES % 18.7 % (20.0-50.0); MEAN CORPUSCULAR HEMOGLOBIN 26.7 pg (28.0-32.0); MEAN CORPUSCULAR VOLUME 79.6 fL (81.0-99.0); MEAN PLATELET VOLUME 7.7 fl (7.4-10.4); NEUTROPHILS % 71.6 % (40.0-76.0); PLATELET 275 x1000/uL (130-400); RED BLOOD CELL COUNT 4.33 mill/uL (4.2-5.4); RED CELL DISTRIBUTION WIDTH 17.1 % (11.6-14.6)
[2020-09-17 10:46] LABS: CHLORIDE 109 mEq/L (98-107)
[2020-09-17 10:53] LABS: LDL CHOLESTEROL 105 mg/dL (5-100)
[2020-09-17 10:54] LABS: HDL CHOLESTEROL 65 mg/dL (40-59)
[2020-09-17 10:55] LABS: T4 FREE 1.11 ng/dL (0.76-1.46)
[2020-09-18 08:10] LABS: *CREATININE RANDOM URINE 65.2 mg/dL (Not Estab.); MICROALBUMIN RANDOM URINE 31.6 ug/mL (Not Estab.)
== END | disposition home or self-care (01) ==
LOC: LAB 09:33
PROVIDERS: ATTEND Internal Medicine Endocrinology, Diabetes & Metabolism
DX: I10 Essential (primary) hypertension (principal); E11.9 Type 2 diabetes mellitus without complications; E78.5 Hyperlipidemia, unspecified; E55.9 Vitamin D deficiency, unspecified
CPT/HCPCS: 36415; 80053; 80061; 82043; 82306; 82570; 83036; 84439; 84443; 85025

== ENCOUNTER → 2021-03-01 | Outpatient (CLI) | payer BC ==
[2021-03-01 09:09] LABS: BASOPHILS % 0.7 % (0.0-2.0); EOSINOPHILS % 3.4 % (0.0-5.0); HEMATOCRIT. 34.9 % (36.0-48.0); HEMOGLOBIN. 11.4 g/dL (12.0-16.0); LYMPHOCYTES % 20.5 % (20.0-50.0); MEAN CORPUSCULAR HEMOGLOBIN 25.9 pg (28.0-32.0); MEAN CORPUSCULAR VOLUME 79.6 fL (81.0-99.0); MEAN PLATELET VOLUME 7.8 fl (7.4-10.4); MONOCYTES % 8.9 % (2.0-8.0); NEUTROPHILS % 66.5 % (40.0-76.0); PLATELET 263 x1000/uL (130-400); RED BLOOD CELL COUNT 4.38 mill/uL (4.2-5.4); RED CELL DISTRIBUTION WIDTH 17.1 % (11.6-14.6)
[2021-03-01 09:19] LABS: CHLORIDE 108 mEq/L (98-107)
[2021-03-01 09:27] LABS: LDL CHOLESTEROL 68 mg/dL (5-100)
[2021-03-01 09:28] LABS: HDL CHOLESTEROL 53 mg/dL (40-59)
[2021-03-01 09:29] LABS: T4 FREE 1.07 ng/dL (0.76-1.46)
[2021-03-02 06:10] LABS: *CREATININE RANDOM URINE 59.3 mg/dL (Not Estab.); MICROALBUMIN RANDOM URINE 10.9 ug/mL (Not Estab.)
== END | disposition home or self-care (01) ==
LOC: LAB 08:20
PROVIDERS: ATTEND Internal Medicine Endocrinology, Diabetes & Metabolism
DX: E11.9 Type 2 diabetes mellitus without complications (principal); I10 Essential (primary) hypertension; E05.90 Thyrotoxicosis, unspecified without thyrotoxic crisis or storm; E55.9 Vitamin D deficiency, unspecified
CPT/HCPCS: 36415; 80053; 80061; 82043; 82306; 82570; 83036; 84439; 84443; 85025

== ENCOUNTER → 2021-04-12 | Outpatient (CLI) | payer BC ==
[~2021-04-12] VITALS: Ht 162.6 cm; Wt 112.9 kg
[~2021-04-12] MED LIST changes: +CAFFEINE CITRATE 20MG/ML 3ML VIAL IV ONE; +REGADENOSON 0.4 MG/5 ML IV ONE
== END | disposition home or self-care (01) ==
LOC: NM 07:36
PROVIDERS: ATTEND Specialist
DX: I05.8 Other rheumatic mitral valve diseases (principal); I48.91 Unspecified atrial fibrillation
CPT/HCPCS: 78452; 93017; 93306; A9500; J2785; J0706

== ENCOUNTER → 2021-06-10 | Outpatient (CLI) | payer BC ==
[~2021-06-10] MED LIST changes: -CAFFEINE CITRATE 20MG/ML 3ML VIAL IV ONE; -REGADENOSON 0.4 MG/5 ML IV ONE
== END | disposition home or self-care (01) ==
LOC: MAMMO 07:26
PROVIDERS: ATTEND Internal Medicine Endocrinology, Diabetes & Metabolism
DX: Z12.31 Encounter for screening mammogram for malignant neoplasm of breast (principal); M47.817 Spondylosis without myelopathy or radiculopathy, lumbosacral region; M51.27 Other intervertebral disc displacement, lumbosacral region; M48.07 Spinal stenosis, lumbosacral region; M54.9 Dorsalgia, unspecified; I73.9 Peripheral vascular disease, unspecified
CPT/HCPCS: 72148; 77063; 77067; 93923; 93970

== ENCOUNTER → 2021-06-28 | Outpatient (CLI) | payer BC ==
[2021-06-28 11:44] LABS: BASOPHILS % 0.5 % (0.0-2.0); EOSINOPHILS % 2.2 % (0.0-5.0); HEMATOCRIT. 38.5 % (36.0-48.0); HEMOGLOBIN. 12.2 g/dL (12.0-16.0); MEAN CORPUSCULAR HEMOGLOBIN 25.4 pg (28.0-32.0); MEAN CORPUSCULAR VOLUME 80.1 fL (81.0-99.0); MEAN PLATELET VOLUME 7.3 fl (7.4-10.4); MONOCYTES % 7.5 % (2.0-8.0); NEUTROPHILS % 67.8 % (40.0-76.0); PLATELET 316 x1000/uL (130-400)
[2021-06-28 12:08] LABS: CHLORIDE 109 mEq/L (98-107)
[2021-06-28 12:16] LABS: HDL CHOLESTEROL 54 mg/dL (40-59)
[2021-06-28 12:17] LABS: T4 FREE 1.24 ng/dL (0.76-1.46)
[2021-06-28 12:19] LABS: LDL CHOLESTEROL 89 mg/dL (5-100)
[2021-06-29 13:07] LABS: *CREATININE RANDOM URINE 36.8 mg/dL (Not Estab.); MICROALBUMIN RANDOM URINE 18.8 ug/mL (Not Estab.)
== END | disposition home or self-care (01) ==
LOC: LAB 11:15
PROVIDERS: ATTEND Internal Medicine Endocrinology, Diabetes & Metabolism
DX: E11.9 Type 2 diabetes mellitus without complications (principal); E55.9 Vitamin D deficiency, unspecified; I10 Essential (primary) hypertension; E03.9 Hypothyroidism, unspecified; E78.00 Pure hypercholesterolemia, unspecified
CPT/HCPCS: 36415; 80053; 80061; 82043; 82306; 82570; 83036; 84439; 84443; 85025

== ENCOUNTER → 2021-08-26 | Outpatient (CLI) | payer BC ==
[2021-08-26 14:55] LABS: BASOPHILS % 0.6 % (0.0-2.0); HEMATOCRIT. 33.9 % (36.0-48.0); HEMOGLOBIN. 11.2 g/dL (12.0-16.0); LYMPHOCYTES % 19.8 % (20.0-50.0); MEAN CORPUSCULAR HEMOGLOBIN 26.5 pg (28.0-32.0); MEAN CORPUSCULAR VOLUME 80.4 fL (81.0-99.0); MEAN PLATELET VOLUME 7.3 fl (7.4-10.4); MONOCYTES % 8.4 % (2.0-8.0); NEUTROPHILS % 69.2 % (40.0-76.0); PLATELET 268 x1000/uL (130-400); RED BLOOD CELL COUNT 4.22 mill/uL (4.2-5.4); RED CELL DISTRIBUTION WIDTH 16.4 % (11.6-14.6)
[2021-08-26 15:04] LABS: CHLORIDE 109 mEq/L (98-107)
[2021-08-26 15:11] LABS: LDL CHOLESTEROL 90 mg/dL (5-100)
[2021-08-26 15:12] LABS: HDL CHOLESTEROL 59 mg/dL (40-59)
[2021-08-26 15:13] LABS: T4 FREE 1.38 ng/dL (0.76-1.46)
== END | disposition home or self-care (01) ==
LOC: LAB 14:09
PROVIDERS: ATTEND Internal Medicine Endocrinology, Diabetes & Metabolism
DX: E11.9 Type 2 diabetes mellitus without complications (principal); I10 Essential (primary) hypertension; E03.9 Hypothyroidism, unspecified; E55.9 Vitamin D deficiency, unspecified
CPT/HCPCS: 36415; 80053; 80061; 82043; 82306; 82570; 83036; 84439; 84443; 85025

== ENCOUNTER → 2021-11-11 | Outpatient (CLI) | payer BC ==
[2021-11-11 12:08] LABS: BASOPHILS % 0.6 % (0.0-2.0); CHLORIDE 108 mEq/L (98-107); EOSINOPHILS % 2.8 % (0.0-5.0); HEMATOCRIT. 35.2 % (36.0-48.0); HEMOGLOBIN. 11.3 g/dL (12.0-16.0); LYMPHOCYTES % 20.1 % (20.0-50.0); MEAN CORPUSCULAR HEMOGLOBIN 26.4 pg (28.0-32.0); MEAN PLATELET VOLUME 7.6 fl (7.4-10.4); MONOCYTES % 6.9 % (2.0-8.0); NEUTROPHILS % 69.6 % (40.0-76.0); PLATELET 274 x1000/uL (130-400); RED CELL DISTRIBUTION WIDTH 16.2 % (11.6-14.6)
[2021-11-11 12:25] LABS: HDL CHOLESTEROL 53 mg/dL (40-59); LDL CHOLESTEROL 89 mg/dL (5-100); T4 FREE 1.41 ng/dL (0.76-1.46)
== END | disposition home or self-care (01) ==
LOC: LAB 11:32
PROVIDERS: ATTEND Internal Medicine Endocrinology, Diabetes & Metabolism
DX: I10 Essential (primary) hypertension (principal); E11.9 Type 2 diabetes mellitus without complications; E55.9 Vitamin D deficiency, unspecified; E03.9 Hypothyroidism, unspecified
CPT/HCPCS: 36415; 80053; 80061; 82306; 83036; 84439; 84443; 85025

== ENCOUNTER → 2022-01-04 | Outpatient (CLI) | payer BC ==
[2022-01-04 11:45] LABS: BASOPHILS % 0.6 % (0.0-2.0); EOSINOPHILS % 2.9 % (0.0-5.0); HEMATOCRIT. 35.8 % (36.0-48.0); HEMOGLOBIN. 11.6 g/dL (12.0-16.0); LYMPHOCYTES % 18.2 % (20.0-50.0); MEAN CORPUSCULAR HEMOGLOBIN 26.2 pg (28.0-32.0); MEAN CORPUSCULAR VOLUME 80.9 fL (81.0-99.0); MEAN PLATELET VOLUME 7.8 fl (7.4-10.4); MONOCYTES % 7.9 % (2.0-8.0); NEUTROPHILS % 70.4 % (40.0-76.0); PLATELET 290 x1000/uL (130-400); RED BLOOD CELL COUNT 4.43 mill/uL (4.2-5.4); RED CELL DISTRIBUTION WIDTH 16.5 % (11.6-14.6)
[2022-01-04 12:22] LABS: CHLORIDE 105 mEq/L (98-107)
[2022-01-04 12:38] LABS: HDL CHOLESTEROL 52 mg/dL (40-59); LDL CHOLESTEROL 83 mg/dL (5-100); T4 FREE 1.26 ng/dL (0.76-1.46)
[2022-01-05 07:08] LABS: *CREATININE RANDOM URINE 46.6 mg/dL (Not Estab.); MICROALBUMIN RANDOM URINE 9.4 ug/mL (Not Estab.)
== END | disposition home or self-care (01) ==
LOC: LAB 10:49
PROVIDERS: ATTEND Internal Medicine Endocrinology, Diabetes & Metabolism
DX: I10 Essential (primary) hypertension (principal); E11.9 Type 2 diabetes mellitus without complications; E55.9 Vitamin D deficiency, unspecified; E78.5 Hyperlipidemia, unspecified; E05.90 Thyrotoxicosis, unspecified without thyrotoxic crisis or storm
CPT/HCPCS: 36415; 80053; 80061; 82043; 82306; 82570; 83036; 84439; 84443; 85025

== ENCOUNTER → 2022-01-05 | Outpatient (CLI) | payer BC | END | disposition home or self-care (01) | LOC: RAD 08:03 | PROVIDERS: ATTEND Internal Medicine Endocrinology, Diabetes & Metabolism | DX: M47.817 Spondylosis without myelopathy or radiculopathy, lumbosacral region (principal) | CPT/HCPCS: 72110 ==

== ENCOUNTER → 2022-03-03 | Outpatient (CLI) | payer BC ==
[2022-03-03 11:10] LABS: BASOPHILS % 0.7 % (0.0-2.0); HEMATOCRIT. 34.1 % (36.0-48.0); HEMOGLOBIN. 11.3 g/dL (12.0-16.0); LYMPHOCYTES % 17.5 % (20.0-50.0); MEAN CORPUSCULAR HEMOGLOBIN 26.8 pg (28.0-32.0); MEAN CORPUSCULAR VOLUME 80.6 fL (81.0-99.0); MEAN PLATELET VOLUME 7.4 fl (7.4-10.4); MONOCYTES % 7.1 % (2.0-8.0); NEUTROPHILS % 71.7 % (40.0-76.0); PLATELET 278 x1000/uL (130-400); RED BLOOD CELL COUNT 4.23 mill/uL (4.2-5.4); RED CELL DISTRIBUTION WIDTH 16.6 % (11.6-14.6)
[2022-03-03 11:27] LABS: HDL CHOLESTEROL 55 mg/dL (40-59); LDL CHOLESTEROL 76 mg/dL (5-100)
[2022-03-03 12:04] LABS: CHLORIDE 108 mEq/L (98-107)
[2022-03-03 14:53] LABS: T4 FREE 1.39 ng/dL (0.76-1.46)
== END | disposition home or self-care (01) ==
LOC: LAB 10:14
PROVIDERS: ATTEND Internal Medicine Endocrinology, Diabetes & Metabolism
DX: I10 Essential (primary) hypertension (principal); E11.9 Type 2 diabetes mellitus without complications; E55.9 Vitamin D deficiency, unspecified; E78.5 Hyperlipidemia, unspecified; E03.9 Hypothyroidism, unspecified
CPT/HCPCS: 36415; 80053; 80061; 82306; 83036; 84439; 84443; 85025

== ENCOUNTER → 2022-05-10 | Outpatient (CLI) | payer BC ==
[2022-05-10 15:37] LABS: BASOPHILS % 0.5 % (0.0-2.0); EOSINOPHILS % 2.1 % (0.0-5.0); HEMATOCRIT. 34.9 % (36.0-48.0); HEMOGLOBIN. 11.2 g/dL (12.0-16.0); LYMPHOCYTES % 18.4 % (20.0-50.0); MEAN CORPUSCULAR HEMOGLOBIN 25.6 pg (28.0-32.0); MEAN CORPUSCULAR VOLUME 79.8 fL (81.0-99.0); MEAN PLATELET VOLUME 7.9 fl (7.4-10.4); MONOCYTES % 6.8 % (2.0-8.0); NEUTROPHILS % 72.2 % (40.0-76.0); PLATELET 268 x1000/uL (130-400); RED BLOOD CELL COUNT 4.37 mill/uL (4.2-5.4); RED CELL DISTRIBUTION WIDTH 16.5 % (11.6-14.6)
[2022-05-10 15:43] LABS: CHLORIDE 107 mEq/L (98-107)
[2022-05-10 15:57] LABS: HDL CHOLESTEROL 54 mg/dL (40-59); LDL CHOLESTEROL 82 mg/dL (5-100)
== END | disposition home or self-care (01) ==
LOC: LAB 14:25
PROVIDERS: ATTEND Internal Medicine Endocrinology, Diabetes & Metabolism
DX: I10 Essential (primary) hypertension (principal); D64.9 Anemia, unspecified; E11.9 Type 2 diabetes mellitus without complications; E03.9 Hypothyroidism, unspecified; E78.5 Hyperlipidemia, unspecified
CPT/HCPCS: 36415; 80053; 80061; 82728; 83036; 84439; 84443; 85025

== ENCOUNTER → 2022-07-07 | Day surgery (SDC) | payer BC ==
[~2022-07-07] VITALS: Ht 162.6 cm; Wt 109.8 kg
[~2022-07-07] MED LIST changes: +APIX5TAB PO; +BISA-81 MT; +DILT120T13 MT; +FLEC50TA2 MT; +HYDRALAZINE 20MG/ML VIAL ONE; +HYDROMORPHONE HCL/PF 2MG/ML CPJ IV PRN; +LABETALOL 5MG/ML SYR 20 MG/4 ML SYRINGE IV PRN; +LOSA100T32 MT; +MEPERIDINE HCL/PF 25MG/ML CPJ IV PRN; +ONDANSETRON HCL 4MG/2ML INJ IV PRN
[2022-07-07 08:05] LABS: BASOPHILS % 0.5 % (0.0-2.0); EOSINOPHILS % 3.8 % (0.0-5.0); HEMATOCRIT. 33.5 % (36.0-48.0); HEMOGLOBIN. 10.9 g/dL (12.0-16.0); LYMPHOCYTES % 17.8 % (20.0-50.0); MEAN CORPUSCULAR HEMOGLOBIN 25.5 pg (28.0-32.0); MEAN CORPUSCULAR VOLUME 78.6 fL (81.0-99.0); MEAN PLATELET VOLUME 7.4 fl (7.4-10.4); MONOCYTES % 7.5 % (2.0-8.0); NEUTROPHILS % 70.4 % (40.0-76.0); PLATELET 272 x1000/uL (130-400); RED BLOOD CELL COUNT 4.26 mill/uL (4.2-5.4); RED CELL DISTRIBUTION WIDTH 17.3 % (11.6-14.6)
[2022-07-07 08:14] LABS: INR 1.1; PROTHROMBIN TIME 11.8 sec (9.6-11.0)
[2022-07-07 08:25] LABS: CHLORIDE 109 mEq/L (98-107)
== END | disposition home or self-care (01) ==
LOC: CCL 06:10
PROVIDERS: ATTEND Internal Medicine Clinical Cardiac Electrophysiology
DX: I48.19 Other persistent atrial fibrillation (principal); I49.8 Other specified cardiac arrhythmias; E66.01 Morbid (severe) obesity due to excess calories; E11.9 Type 2 diabetes mellitus without complications; E78.5 Hyperlipidemia, unspecified; I11.0 Hypertensive heart disease with heart failure; I50.32 Chronic diastolic (congestive) heart failure; E03.9 Hypothyroidism, unspecified; Z79.899 Other long term (current) drug therapy; Z98.890 Other specified postprocedural states; Z82.49 Family history of ischemic heart disease and other diseases of the circulatory system; Z88.8 Allergy status to other drugs, medicaments and biological substances
CPT/HCPCS: 36415; 80048; 85025; 85610; 92960; 93005; J0360

== ENCOUNTER → 2022-07-21 | Outpatient (CLI) | payer BC ==
[~2022-07-21] MED LIST changes: -HYDRALAZINE 20MG/ML VIAL ONE; -HYDROMORPHONE HCL/PF 2MG/ML CPJ IV PRN; -LABETALOL 5MG/ML SYR 20 MG/4 ML SYRINGE IV PRN; -MEPERIDINE HCL/PF 25MG/ML CPJ IV PRN; -ONDANSETRON HCL 4MG/2ML INJ IV PRN
[2022-07-21 09:44] LABS: EOSINOPHILS % 4.2 % (0.0-5.0); HEMATOCRIT. 37.2 % (36.0-48.0); HEMOGLOBIN. 11.8 g/dL (12.0-16.0); MEAN CORPUSCULAR HEMOGLOBIN 25.2 pg (28.0-32.0); MEAN CORPUSCULAR VOLUME 79.7 fL (81.0-99.0); MEAN PLATELET VOLUME 7.6 fl (7.4-10.4); MONOCYTES % 7.2 % (2.0-8.0); NEUTROPHILS % 69.6 % (40.0-76.0); PLATELET 277 x1000/uL (130-400); RED BLOOD CELL COUNT 4.67 mill/uL (4.2-5.4); RED CELL DISTRIBUTION WIDTH 17.3 % (11.6-14.6)
[2022-07-21 09:56] LABS: CHLORIDE 104 mEq/L (98-107)
[2022-07-21 10:04] LABS: HDL CHOLESTEROL 61 mg/dL (40-59); LDL CHOLESTEROL 91 mg/dL (5-100); TOTAL IRON BINDING CAPACITY 352 ug/dL (250-450)
[2022-07-21 10:28] LABS: FERRITIN 23 ng/mL (10-291)
[2022-07-21 11:52] LABS: FOLIC ACID (FOLATE) SERUM > 20.00 ng/mL (>5.38); VITAMIN B12 SERUM > 2000.0 pg/mL (211-911)
[2022-07-22 09:10] LABS: VITAMIN D 25-OH 55.7 ng/mL (30.0-100.0)
[2022-07-22 13:11] LABS: ALBUMIN 3.4 g/dL (2.9-4.4); ALPHA-1-GLOBULIN 0.2 g/dL (0.0-0.4); ALPHA-2-GLOBULIN 1.1 g/dL (0.4-1.0); BETA GLOBULIN 1.1 g/dL (0.7-1.3); GLOBULIN TOTAL 3.5 g/dL (2.2-3.9); M-SPIKE Not Observed g/dL (Not Observed); TOTAL PROTEIN SERUM 6.9 g/dL (6.0-8.5)
[2022-07-27 09:12] LABS: HGB A2 2.3 % (1.8-3.2)
== END | disposition home or self-care (01) ==
LOC: LAB 08:50
PROVIDERS: ATTEND Internal Medicine Endocrinology, Diabetes & Metabolism
DX: E11.9 Type 2 diabetes mellitus without complications (principal); E55.9 Vitamin D deficiency, unspecified; E03.9 Hypothyroidism, unspecified; D64.9 Anemia, unspecified; E78.00 Pure hypercholesterolemia, unspecified
CPT/HCPCS: 36415; 80053; 80061; 82306; 82607; 82728; 82746; 83021; 83036; 83540; 83550; 83921; 84155; 84165; 85025; 85660

== ENCOUNTER → 2022-09-15 | Outpatient (CLI) | payer BC ==
[2022-09-15 13:40] LABS: BASOPHILS % 0.8 % (0.0-2.0); EOSINOPHILS % 3.4 % (0.0-5.0); HEMATOCRIT. 32.9 % (36.0-48.0); HEMOGLOBIN. 10.8 g/dL (12.0-16.0); LYMPHOCYTES % 19.3 % (20.0-50.0); MEAN CORPUSCULAR HEMOGLOBIN 26.2 pg (28.0-32.0); MEAN CORPUSCULAR VOLUME 79.7 fL (81.0-99.0); MEAN PLATELET VOLUME 7.7 fl (7.4-10.4); MONOCYTES % 8.5 % (2.0-8.0); PLATELET 254 x1000/uL (130-400); RED BLOOD CELL COUNT 4.13 mill/uL (4.2-5.4); RED CELL DISTRIBUTION WIDTH 17.5 % (11.6-14.6)
[2022-09-15 13:50] LABS: CHLORIDE 108 mEq/L (98-107)
[2022-09-15 14:07] LABS: T4 FREE 0.96 ng/dL (0.76-1.46)
[2022-09-17 13:07] LABS: *CREATININE RANDOM URINE 44.1 mg/dL (Not Estab.); MICROALBUMIN RANDOM URINE 30.2 ug/mL (Not Estab.)
== END | disposition home or self-care (01) ==
LOC: LAB 12:58
PROVIDERS: ATTEND Internal Medicine Endocrinology, Diabetes & Metabolism
DX: I10 Essential (primary) hypertension (principal); E11.9 Type 2 diabetes mellitus without complications; E55.9 Vitamin D deficiency, unspecified; D64.9 Anemia, unspecified; E05.90 Thyrotoxicosis, unspecified without thyrotoxic crisis or storm
CPT/HCPCS: 36415; 80053; 82043; 82306; 82570; 83036; 84439; 84443; 85025

== ENCOUNTER → 2022-09-29 | Outpatient (CLI) | payer BC | END | disposition home or self-care (01) | LOC: CARD 11:05 | PROVIDERS: ATTEND Specialist | DX: I08.8 Other rheumatic multiple valve diseases (principal); I48.91 Unspecified atrial fibrillation | CPT/HCPCS: 93306 ==

== ENCOUNTER → 2022-10-28 | Outpatient (CLI) | payer BC ==
[~2022-10-28] MED LIST changes: -LOSA100T32 MT; -LOSA100T32 PO; +LOSA100T33 MT; +LOSA100T33 PO
== END | disposition home or self-care (01) ==
LOC: RAD 16:57
PROVIDERS: ATTEND Internal Medicine Endocrinology, Diabetes & Metabolism
DX: J98.09 Other diseases of bronchus, not elsewhere classified (principal); I51.7 Cardiomegaly; R05.9 Cough, unspecified; I10 Essential (primary) hypertension; E11.9 Type 2 diabetes mellitus without complications; E78.00 Pure hypercholesterolemia, unspecified; E05.90 Thyrotoxicosis, unspecified without thyrotoxic crisis or storm; D64.9 Anemia, unspecified
CPT/HCPCS: 71046

== ENCOUNTER → 2022-10-28 | Outpatient (CLI) | payer BC ==
[2022-10-28 19:18] LABS: BASOPHILS % 0.6 % (0.0-2.0); HEMATOCRIT. 37.6 % (36.0-48.0); LYMPHOCYTES % 21.9 % (20.0-50.0); MEAN CORPUSCULAR HEMOGLOBIN 25.9 pg (28.0-32.0); MEAN CORPUSCULAR VOLUME 80.9 fL (81.0-99.0); MEAN PLATELET VOLUME 7.4 fl (7.4-10.4); NEUTROPHILS % 68.5 % (40.0-76.0); PLATELET 369 x1000/uL (130-400); RED BLOOD CELL COUNT 4.65 mill/uL (4.2-5.4); RED CELL DISTRIBUTION WIDTH 16.7 % (11.6-14.6)
[2022-10-28 19:33] LABS: CHLORIDE 104 mEq/L (98-107)
[2022-10-28 19:47] LABS: HDL CHOLESTEROL 53 mg/dL (40-59); LDL CHOLESTEROL 86 mg/dL (5-100); TOTAL IRON BINDING CAPACITY 319 ug/dL (250-450)
== END | disposition home or self-care (01) ==
LOC: LAB 16:32
PROVIDERS: ATTEND Internal Medicine Endocrinology, Diabetes & Metabolism
DX: I10 Essential (primary) hypertension (principal); E11.9 Type 2 diabetes mellitus without complications; E55.9 Vitamin D deficiency, unspecified; E78.00 Pure hypercholesterolemia, unspecified; E05.90 Thyrotoxicosis, unspecified without thyrotoxic crisis or storm; D64.9 Anemia, unspecified; R05.9 Cough, unspecified
CPT/HCPCS: 36415; 80053; 80061; 82306; 82728; 83036; 83540; 83550; 84439; 84443; 85025

== ENCOUNTER → 2022-11-07 | Outpatient (CLI) | payer BC ==
[~2022-11-07] VITALS: Ht 162.6 cm; Wt 109.8 kg
[~2022-11-07] MED LIST changes: +REGADENOSON 0.4 MG/5 ML IV ONE
== END | disposition home or self-care (01) ==
LOC: RAD 08:38
PROVIDERS: ATTEND Specialist
DX: I11.9 Hypertensive heart disease without heart failure (principal); I27.20 Pulmonary hypertension, unspecified; M25.551 Pain in right hip
CPT/HCPCS: 73502; 78452; 93017; A9500; J2785

== ENCOUNTER 2022-12-21 21:28 | Emergency (ER) | payer SELFPAY ==
[~2022-12-21] VITALS: Ht 162.6 cm; Wt 110.0 kg
[~2022-12-21 21:28] MED LIST changes: -REGADENOSON 0.4 MG/5 ML IV ONE
[2022-12-21 21:37] VITALS: BP 146/66; O2SAT 99
[2022-12-21 23:52] VITALS: PULSE 64; RESP 16; TEMP 98.1
== END 2022-12-21 23:50 | disposition home or self-care (01) ==
LOC: ER 21:28
DX: K64.9 Unspecified hemorrhoids (principal); E11.9 Type 2 diabetes mellitus without complications; I11.0 Hypertensive heart disease with heart failure; I50.9 Heart failure, unspecified; Z79.899 Other long term (current) drug therapy
CPT/HCPCS: 99281

== ENCOUNTER → 2023-01-06 | Outpatient (CLI) | payer BC | END | disposition home or self-care (01) | LOC: MAMMO 09:09 | PROVIDERS: ATTEND Obstetrics & Gynecology Obstetrics | DX: Z12.31 Encounter for screening mammogram for malignant neoplasm of breast (principal) | CPT/HCPCS: 77067 ==

== ENCOUNTER → 2023-01-06 | Outpatient (CLI) | payer BC ==
[2023-01-06 09:47] LABS: BASOPHILS % 0.7 % (0.0-2.0); HEMATOCRIT. 34.9 % (36.0-48.0); HEMOGLOBIN. 11.5 g/dL (12.0-16.0); LYMPHOCYTES % 17.7 % (20.0-50.0); MEAN CORPUSCULAR HEMOGLOBIN 26.8 pg (28.0-32.0); MEAN CORPUSCULAR HGB CONC 32.9 g/dL (31.0-37.0); MEAN CORPUSCULAR VOLUME 81.5 fL (81.0-99.0); MEAN PLATELET VOLUME 7.5 fl (7.4-10.4); MONOCYTES % 7.3 % (2.0-8.0); NEUTROPHILS % 70.3 % (40.0-76.0); PLATELET 277 x1000/uL (130-400); RED BLOOD CELL COUNT 4.28 mill/uL (4.2-5.4); RED CELL DISTRIBUTION WIDTH 17.1 % (11.6-14.6); WHITE BLOOD COUNT 6.3 x1000/uL (4.5-11.0)
[2023-01-06 10:08] LABS: CHLORIDE 105 mEq/L (98-107); INDEX HEMOLYSI 1 (1-3); INDEX ICTERIC 1 (1-4); INDEX LIPEMIC 1 (1-3); POTASSIUM 4.7 mEq/L (3.5-5.1); SODIUM 137 mEq/L (136-145)
[2023-01-06 10:24] LABS: ALANINE AMINOTRANSFERASE 24 IU/L (13-61); ALBUMIN 3.5 g/dL (3.4-5.0); ASPARTATE AMINOTRANSFERASE 14 IU/L (15-37); BILIRUBIN TOTAL 0.2 mg/dL (0.1-1.0); CARBON DIOXIDE 25 mEq/L (21-32); CHOLESTEROL 165 mg/dL (<200); CREATININE 1.2 mg/dL (0.6-1.3); GLUCOSE 150 mg/dL (70-105); HDL CHOLESTEROL 63 mg/dL (40-59); IRON 30 ug/dL (50-175); LDL CHOLESTEROL 93 mg/dL (5-100); PROTEIN TOTAL 7.4 g/dL (6.0-8.3); T4 FREE 0.95 ng/dL (0.76-1.46); TOTAL IRON BINDING CAPACITY 339 ug/dL (250-450); TRIGLYCERIDE 63 mg/dL (0-150); UREA NITROGEN BLOOD 23 mg/dL (7-21)
== END | disposition home or self-care (01) ==
LOC: LAB 09:20
PROVIDERS: ATTEND Internal Medicine Endocrinology, Diabetes & Metabolism
DX: E11.9 Type 2 diabetes mellitus without complications (principal); E55.9 Vitamin D deficiency, unspecified; E78.00 Pure hypercholesterolemia, unspecified; D64.9 Anemia, unspecified; E03.9 Hypothyroidism, unspecified
CPT/HCPCS: 36415; 80053; 80061; 82306; 82728; 83036; 83540; 83550; 84439; 84443; 85025

== ENCOUNTER → 2023-02-03 | Outpatient (CLI) | payer BC | END | disposition home or self-care (01) | LOC: US 07:35 | PROVIDERS: ATTEND Internal Medicine Endocrinology, Diabetes & Metabolism | DX: D25.9 Leiomyoma of uterus, unspecified (principal); K76.0 Fatty (change of) liver, not elsewhere classified; R16.0 Hepatomegaly, not elsewhere classified; K46.9 Unspecified abdominal hernia without obstruction or gangrene; R19.00 Intra-abdominal and pelvic swelling, mass and lump, unspecified site; R19.2 Visible peristalsis | CPT/HCPCS: 76700; 76856 ==

== ENCOUNTER → 2023-03-22 | Outpatient (CLI) | payer BC ==
[~2023-03-22] MED LIST changes: -CLON-457 PO; +CLON-493 PO; +POTA-216 MT; -POTA10TA2 MT
[2023-03-22 16:06] LABS: BASOPHILS % 0.6 % (0.0-2.0); EOSINOPHILS % 8.9 % (0.0-5.0); HEMATOCRIT. 35.5 % (36.0-48.0); HEMOGLOBIN. 11.3 g/dL (12.0-16.0); LYMPHOCYTES % 12.4 % (20.0-50.0); MEAN CORPUSCULAR HEMOGLOBIN 26.1 pg (28.0-32.0); MEAN CORPUSCULAR HGB CONC 31.9 g/dL (31.0-37.0); MEAN CORPUSCULAR VOLUME 81.8 fL (81.0-99.0); MEAN PLATELET VOLUME 7.5 fl (7.4-10.4); MONOCYTES % 6.8 % (2.0-8.0); NEUTROPHILS % 71.3 % (40.0-76.0); PLATELET 303 x1000/uL (130-400); RED BLOOD CELL COUNT 4.34 mill/uL (4.2-5.4); RED CELL DISTRIBUTION WIDTH 16.2 % (11.6-14.6); WHITE BLOOD COUNT 7.8 x1000/uL (4.5-11.0)
[2023-03-22 16:13] LABS: CHLORIDE 106 mEq/L (98-107); INDEX HEMOLYSI 1 (1-3); INDEX ICTERIC 1 (1-4); INDEX LIPEMIC 1 (1-3); POTASSIUM 4.4 mEq/L (3.5-5.1); SODIUM 138 mEq/L (136-145)
[2023-03-22 16:30] LABS: ALANINE AMINOTRANSFERASE 17 IU/L (13-61); ALBUMIN 3.5 g/dL (3.4-5.0); ASPARTATE AMINOTRANSFERASE 11 IU/L (15-37); BILIRUBIN TOTAL 0.4 mg/dL (0.1-1.0); CALCIUM 9.1 mg/dL (8.5-10.1); CARBON DIOXIDE 28 mEq/L (21-32); CHOLESTEROL 134 mg/dL (<200); CREATININE 1.5 mg/dL (0.6-1.3); GLUCOSE 128 mg/dL (70-105); HDL CHOLESTEROL 52 mg/dL (40-59); LDL CHOLESTEROL 81 mg/dL (5-100); PROTEIN TOTAL 7.3 g/dL (6.0-8.3); T4 FREE 1.31 ng/dL (0.76-1.46); TRIGLYCERIDE 76 mg/dL (0-150); UREA NITROGEN BLOOD 37 mg/dL (7-21)
== END | disposition home or self-care (01) ==
LOC: LAB 15:15
PROVIDERS: ATTEND Internal Medicine Endocrinology, Diabetes & Metabolism
DX: E11.9 Type 2 diabetes mellitus without complications (principal); E03.9 Hypothyroidism, unspecified; D64.9 Anemia, unspecified; E78.00 Pure hypercholesterolemia, unspecified; E55.9 Vitamin D deficiency, unspecified
CPT/HCPCS: 36415; 80053; 80061; 82043; 82306; 82570; 83036; 84439; 84443; 85025

== ENCOUNTER 2023-04-09 17:22 | Inpatient (IN) | payer BC ==
[~2023-04-09] VITALS: Ht 165.1 cm; Wt 107.2 kg
[2023-04-09 18:17] LABS: BASOPHILS % 0.6 % (0.0-2.0); EOSINOPHILS % 3.9 % (0.0-5.0); HEMATOCRIT. 37.2 % (36.0-48.0); LYMPHOCYTES % 16.8 % (20.0-50.0); MEAN CORPUSCULAR HEMOGLOBIN 26.3 pg (28.0-32.0); MEAN CORPUSCULAR HGB CONC 32.3 g/dL (31.0-37.0); MEAN CORPUSCULAR VOLUME 81.3 fL (81.0-99.0); MEAN PLATELET VOLUME 7.5 fl (7.4-10.4); MONOCYTES % 8.7 % (2.0-8.0); PLATELET 308 x1000/uL (130-400); RED BLOOD CELL COUNT 4.57 mill/uL (4.2-5.4); RED CELL DISTRIBUTION WIDTH 16.1 % (11.6-14.6)
[2023-04-09 18:25] LABS: CHLORIDE 105 mEq/L (98-107); INDEX HEMOLYSI 1 (1-3); INDEX ICTERIC 1 (1-4); INDEX LIPEMIC 1 (1-3); POTASSIUM 4.5 mEq/L (3.5-5.1); SODIUM 137 mEq/L (136-145)
[2023-04-09 18:34] LABS: ALANINE AMINOTRANSFERASE 21 IU/L (13-61); ALBUMIN 3.5 g/dL (3.4-5.0); ASPARTATE AMINOTRANSFERASE 22 IU/L (15-37); BILIRUBIN TOTAL 0.4 mg/dL (0.1-1.0); CALCIUM 9.3 mg/dL (8.5-10.1); CARBON DIOXIDE 18 mEq/L (21-32); CREATININE 1.6 mg/dL (0.6-1.3); GLUCOSE 83 mg/dL (70-105); PROTEIN TOTAL 7.3 g/dL (6.0-8.3); UREA NITROGEN BLOOD 42 mg/dL (7-21)
[2023-04-09 22:23] LABS: TROPONIN I HIGH SENSITIVITY 187 ng/L (<54)
[2023-04-09] MEDS ORDERED: FUROSEMIDE 40MG/4ML VIAL IVP ONE (23:00)
[2023-04-09] MEDS ORDERED: ASPIRIN 325MG EC TABLET PO ONE (23:00)
[2023-04-10] MEDS: ASPIRIN 325MG EC TABLET PO NR ×2 (02:33→02:35)
[2023-04-10] MEDS: FUROSEMIDE 40MG/4ML VIAL IVP NR ×2 (02:33→02:35)
[2023-04-10] MEDS ORDERED: FUROSEMIDE 40MG/4ML VIAL IVP SCH (11:30)
[2023-04-10] MEDS ORDERED: CLONIDINE 0.1MG TABLET PO PRN (11:30)
[2023-04-10] MEDS ORDERED: ACETAMINOPHEN 325MG TABLET PO PRN (11:30)
[2023-04-10] MEDS ORDERED: ONDANSETRON HCL 4MG/2ML INJ IV PRN (11:30)
[2023-04-10] MEDS ORDERED: ENOXAPARIN 40MG/0.4ML SYR SUBCUT SCH (11:41)
[2023-04-10 14:54] VITALS: BP 134/80; PULSE 75; RESP 20; TEMP 97.5
[2023-04-10] MEDS: ASPIRIN 81MG EC TABLET PO SCH (18:21)
[2023-04-10] MEDS: APIXABAN 5 MG TABLET PO SCH (18:22)
[2023-04-10 18:29] LABS: CREATINE KINASE MB FRACTION 3.7 ng/mL (0.5-3.6)
[2023-04-10 19:12] VITALS: BP 134/68; PULSE 63; RESP 20; TEMP 97.6
[2023-04-10 20:00] VITALS: BP 138/60; PULSE 90; RESP 18; TEMP 98.4
[2023-04-10] MEDS: SILDENAFIL CITRATE 20MG TABLET PO SCH (21:12)
[2023-04-10] MEDS ORDERED: DOCUSATE SODIUM 100MG CAPSULE PO PRN (21:45)
[2023-04-10] MEDS ORDERED: SILD20TA PO (22:10)
[2023-04-10] MEDS ORDERED: ATOR40TA70 PO (22:14)
[2023-04-10] MEDS ORDERED: TRAM50TA3 PO (22:14)
[2023-04-10] MEDS ORDERED: FLEC50TA2 PO (22:14)
[2023-04-10] MEDS ORDERED: POTA-204 PO (22:14)
[2023-04-10] MEDS ORDERED: DILT-26 PO (22:14)
[2023-04-10] MEDS ORDERED: POTA-205 PO (22:14)
[2023-04-10] MEDS ORDERED: APIX5TAB PO (22:14)
[2023-04-10] MEDS: ATORVASTATIN CALCIUM 10MG TABLET PO SCH ×2 (22:30→22:55)
[2023-04-10] MEDS: FLECAINIDE 50MG TABLET PO SCH (22:58)
[2023-04-10] MEDS ORDERED: DEXTROSE 50% WATER 50ML SYRINGE IV PRN (23:15)
[2023-04-10] MEDS: INSULIN LISPRO 100 UNITS/ML SUBCUT SCH (23:47)
[2023-04-11] VITALS: BP 138/60; PULSE 90; RESP 18; TEMP 98.4
[2023-04-11 00:48] LABS: CREATINE KINASE MB FRACTION 3.1 ng/mL (0.5-3.6)
[2023-04-11] MEDS ORDERED: DEXTROSE 50% WATER 50ML SYRINGE IV PRN (01:30)
[2023-04-11 04:00] VITALS: BP 119/60; PULSE 74; RESP 18; TEMP 97.8
[2023-04-11] MEDS: BLOOD SUGAR DIAGNOSTIC STRIP TEST SCH ×4 (06:09→21:03)
[2023-04-11] MEDS: SILDENAFIL CITRATE 20MG TABLET PO SCH ×3 (06:09→21:13)
[2023-04-11] MEDS: INSULIN LISPRO 100 UNITS/ML SUBCUT SCH ×3 (06:09→17:36)
[2023-04-11 07:59] LABS: TROPONIN I HIGH SENSITIVITY 138 ng/L (<54)
[2023-04-11 08:11] LABS: T4 FREE 1.4 ng/dL (0.76-1.46); THYROID STIMULATING HORMONE 0.41 uIU/mL (0.36-3.74)
[2023-04-11] MEDS ORDERED: APIXABAN 5 MG TABLET PO SCH (09:00)
[2023-04-11] MEDS ORDERED: FUROSEMIDE 40MG TABLET PO SCH (09:00)
[2023-04-11] MEDS: LEVOTHYROXINE SODIUM 150MCG TABLET PO SCH (09:18)
[2023-04-11] MEDS: FLECAINIDE 50MG TABLET PO SCH (09:18)
[2023-04-11] MEDS: ASPIRIN 81MG EC TABLET PO SCH (09:18)
[2023-04-11] MEDS: APIXABAN 5 MG TABLET PO SCH ×2 (09:18→17:34)
[2023-04-11] MEDS: LOSARTAN 100 MG TABLET PO SCH (09:19)
[2023-04-11] MEDS: DILTIAZEM HCL 120MG CAPSULE ER 24HR PO SCH (09:19)
[2023-04-11] MEDS: HYDROCHLOROTHIAZIDE 25MG TABLET PO SCH (09:21)
[2023-04-11] MEDS ORDERED: DILT-26 PO (15:55)
[2023-04-11] MEDS ORDERED: TIRZ2.5P SQ (15:55)
[2023-04-11 16:00] VITALS: BP 106/56; PULSE 83; RESP 18; TEMP 97.7
[2023-04-11] MEDS ORDERED: HEPARIN 1000 UNITS/ML 10ML ONE (16:40)
[2023-04-11 16:42] LABS: BASOPHILS % 0.5 % (0.0-2.0); EOSINOPHILS % 7.2 % (0.0-5.0); HEMATOCRIT. 37.2 % (36.0-48.0); HEMOGLOBIN. 12.1 g/dL (12.0-16.0); LYMPHOCYTES % 16.6 % (20.0-50.0); MEAN CORPUSCULAR HEMOGLOBIN 26.4 pg (28.0-32.0); MEAN CORPUSCULAR HGB CONC 32.4 g/dL (31.0-37.0); MEAN CORPUSCULAR VOLUME 81.6 fL (81.0-99.0); MEAN PLATELET VOLUME 7.9 fl (7.4-10.4); NEUTROPHILS % 65.7 % (40.0-76.0); PLATELET 297 x1000/uL (130-400); RED BLOOD CELL COUNT 4.56 mill/uL (4.2-5.4); RED CELL DISTRIBUTION WIDTH 16.2 % (11.6-14.6); WHITE BLOOD COUNT 5.7 x1000/uL (4.5-11.0)
[2023-04-11 17:53] LABS: CALCIUM 9.7 mg/dL (8.7-10.4); CARBON DIOXIDE 22 mEq/L (21-32); CHLORIDE 107 mEq/L (98-107); CREATININE 1.1 mg/dL (0.6-1.0); GLUCOSE 96 mg/dL (70-105); POTASSIUM 4.8 mEq/L (3.5-5.1); SODIUM 141 mEq/L (136-145); UREA NITROGEN BLOOD 26 mg/dL (9-23)
[2023-04-11] MEDS ORDERED: BLOOD SUGAR DIAGNOSTIC STRIP TEST SCH (23:30)
[2023-04-12] VITALS (8 sets, daily range): BP systolic 101–139; BP diastolic 58–78; PULSE 78–105; RESP 15–20; TEMP 97.5–99.1
[2023-04-12] MEDS: SODIUM CHLORIDE 0.9% 1,000 ML IV SCH ×2 (01:33→17:15)
[2023-04-12 05:00] LABS: BASOPHILS % 0.5 % (0.0-2.0); EOSINOPHILS % 7.4 % (0.0-5.0); HEMATOCRIT. 37.6 % (36.0-48.0); HEMOGLOBIN. 12.2 g/dL (12.0-16.0); MEAN CORPUSCULAR HEMOGLOBIN 26.4 pg (28.0-32.0); MEAN CORPUSCULAR HGB CONC 32.3 g/dL (31.0-37.0); MEAN CORPUSCULAR VOLUME 81.7 fL (81.0-99.0); MEAN PLATELET VOLUME 7.8 fl (7.4-10.4); MONOCYTES % 9.8 % (2.0-8.0); NEUTROPHILS % 60.3 % (40.0-76.0); PLATELET 277 x1000/uL (130-400); RED BLOOD CELL COUNT 4.61 mill/uL (4.2-5.4); RED CELL DISTRIBUTION WIDTH 15.9 % (11.6-14.6); WHITE BLOOD COUNT 6.3 x1000/uL (4.5-11.0)
[2023-04-12 05:36] LABS: CALCIUM 9.4 mg/dL (8.7-10.4); CREATININE 1.3 mg/dL (0.6-1.0); POTASSIUM 4.5 mEq/L (3.5-5.1)
[2023-04-12] MEDS: LEVOTHYROXINE SODIUM 150MCG TABLET PO SCH (07:10)
[2023-04-12] MEDS: SILDENAFIL CITRATE 20MG TABLET PO SCH ×2 (07:32→21:57)
[2023-04-12] MEDS: BLOOD SUGAR DIAGNOSTIC STRIP TEST SCH ×4 (07:32→21:51)
[2023-04-12] MEDS ORDERED: HEPARIN 1000 UNITS/ML 10ML ONE ×2 (07:55→10:45)
[2023-04-12] MEDS ORDERED: LIDOCAINE HCL 1% 20ML VIAL (Pyxis) INJ ONE (07:55)
[2023-04-12] MEDS ORDERED: MIDAZOLAM HCL 2 MG/2 ML VIAL ONE (08:08)
[2023-04-12] MEDS ORDERED: PROPOFOL 200MG/20ML VIAL IV ONE (08:22)
[2023-04-12] MEDS ORDERED: CEFAZOLIN SODIUM 1000MG/VIAL ONE (09:02)
[2023-04-12] MEDS ORDERED: FENTANYL CITRATE/PF 50MCG/ML 2ML VIAL ONE ×3 (09:02→13:10)
[2023-04-12] MEDS ORDERED: PHENYLEPHRINE HCL 10 MG/ML 1ML (IV VIAL) IV ONE ×4 (09:13→11:15)
[2023-04-12] MEDS ORDERED: DEXAMETHASONE 4MG/ML 1ML VIAL ONE (10:07)
[2023-04-12] MEDS ORDERED: ONDANSETRON HCL 4MG/2ML INJ ONE (10:07)
[2023-04-12] MEDS ORDERED: ROCURONIUM BROMIDE 10MG/ML VIAL 5ML IV ONE (11:22)
[2023-04-12] MEDS ORDERED: PROTAMINE SULFATE 10MG/ML VIAL 25ML IV ONE (12:45)
[2023-04-12] MEDS ORDERED: NEOSTIGMINE METHYLSULFATE 1MG/ML 10 ML VIAL ONE ×2 (13:06→13:07)
[2023-04-12] MEDS ORDERED: ATROPINE SULFATE 1MG/10ML SYR IV PRN (13:30)
[2023-04-12] MEDS ORDERED: HYDROMORPHONE HCL/PF 2MG/ML CPJ IV PRN (14:30)
[2023-04-12] MEDS ORDERED: FENTANYL CITRATE/PF 50MCG/ML 2ML VIAL IV PRN (14:30)
[2023-04-12] MEDS ORDERED: ONDANSETRON HCL 4MG/2ML INJ IV PRN (14:30)
[2023-04-12] MEDS: APIXABAN 5 MG TABLET PO SCH ×2 (17:00→17:15)
[2023-04-12] MEDS: ATORVASTATIN CALCIUM 10MG TABLET PO SCH (21:58)
[2023-04-13 04:25] VITALS: BP 117/59; PULSE 101; RESP 16; TEMP 97.6
[2023-04-13] MEDS: BLOOD SUGAR DIAGNOSTIC STRIP TEST SCH ×4 (06:02→20:46)
[2023-04-13] MEDS: SODIUM CHLORIDE 0.9% 1,000 ML IV SCH (06:51)
[2023-04-13] MEDS: SILDENAFIL CITRATE 20MG TABLET PO SCH ×3 (06:53→22:30)
[2023-04-13] MEDS: LEVOTHYROXINE SODIUM 150MCG TABLET PO SCH (06:53)
[2023-04-13 07:13] LABS: BASOPHILS % 0.3 % (0.0-2.0); EOSINOPHILS % 0.8 % (0.0-5.0); HEMATOCRIT. 32.2 % (36.0-48.0); HEMOGLOBIN. 10.5 g/dL (12.0-16.0); LYMPHOCYTES % 14.3 % (20.0-50.0); MEAN CORPUSCULAR HEMOGLOBIN 26.9 pg (28.0-32.0); MEAN CORPUSCULAR HGB CONC 32.7 g/dL (31.0-37.0); MEAN CORPUSCULAR VOLUME 82.1 fL (81.0-99.0); MEAN PLATELET VOLUME 7.9 fl (7.4-10.4); MONOCYTES % 10.6 % (2.0-8.0); PLATELET 248 x1000/uL (130-400); RED BLOOD CELL COUNT 3.92 mill/uL (4.2-5.4); WHITE BLOOD COUNT 6.6 x1000/uL (4.5-11.0)
[2023-04-13 07:35] LABS: CALCIUM 8.8 mg/dL (8.7-10.4); CREATININE 1.2 mg/dL (0.6-1.0); POTASSIUM 4.5 mEq/L (3.5-5.1)
[2023-04-13 08:00] VITALS: BP 122/68; PULSE 85; RESP 15; TEMP 99
[2023-04-13] MEDS: APIXABAN 5 MG TABLET PO SCH ×2 (08:45→18:55)
[2023-04-13] MEDS: HYDROCHLOROTHIAZIDE 25MG TABLET PO SCH (08:45)
[2023-04-13] MEDS: DILTIAZEM HCL 120MG CAPSULE ER 24HR PO SCH (08:46)
[2023-04-13] MEDS: LOSARTAN 100 MG TABLET PO SCH (08:49)
[2023-04-13 12:00] VITALS: PULSE 79; RESP 17; TEMP 98
[2023-04-13] MEDS: GABAPENTIN 100MG CAPSULE PO SCH ×2 (15:29→22:29)
[2023-04-13 16:00] VITALS: PULSE 77; RESP 33; TEMP 99
[2023-04-13] MEDS: INSULIN LISPRO 100 UNITS/ML SUBCUT SCH ×2 (17:20→20:54)
[2023-04-13 19:45] VITALS: BP 120/55; PULSE 79; RESP 16; TEMP 97.2
[2023-04-13] MEDS: ATORVASTATIN CALCIUM 10MG TABLET PO SCH (21:07)
[2023-04-13] MEDS: HYDROCORTISONE 2.5% OINT 20GM TOP SCH (21:08)
[2023-04-13] MEDS: FLECAINIDE 50MG TABLET PO SCH (21:08)
[2023-04-14 00:15] VITALS: BP 122/61; PULSE 78; RESP 18; TEMP 96.9
[2023-04-14 04:10] VITALS: BP 145/78; PULSE 74; RESP 16; TEMP 97.2
[2023-04-14] MEDS: BLOOD SUGAR DIAGNOSTIC STRIP TEST SCH ×2 (05:47→11:50)
[2023-04-14] MEDS: GABAPENTIN 100MG CAPSULE PO SCH ×2 (06:00→13:23)
[2023-04-14] MEDS: SILDENAFIL CITRATE 20MG TABLET PO SCH ×2 (06:00→13:23)
[2023-04-14] MEDS: LEVOTHYROXINE SODIUM 150MCG TABLET PO SCH (06:00)
[2023-04-14 06:51] LABS: BASOPHILS % 0.3 % (0.0-2.0); EOSINOPHILS % 5.2 % (0.0-5.0); HEMATOCRIT. 30.8 % (36.0-48.0); HEMOGLOBIN. 10.1 g/dL (12.0-16.0); LYMPHOCYTES % 15.6 % (20.0-50.0); MEAN CORPUSCULAR HGB CONC 32.8 g/dL (31.0-37.0); MEAN CORPUSCULAR VOLUME 82.4 fL (81.0-99.0); MEAN PLATELET VOLUME 7.8 fl (7.4-10.4); MONOCYTES % 11.4 % (2.0-8.0); NEUTROPHILS % 67.5 % (40.0-76.0); PLATELET 215 x1000/uL (130-400); RED BLOOD CELL COUNT 3.73 mill/uL (4.2-5.4); RED CELL DISTRIBUTION WIDTH 16.1 % (11.6-14.6); WHITE BLOOD COUNT 5.2 x1000/uL (4.5-11.0)
[2023-04-14] MEDS: INSULIN LISPRO 100 UNITS/ML SUBCUT SCH ×2 (07:20→12:10)
[2023-04-14 07:48] LABS: CARBON DIOXIDE 23 mEq/L (21-32); CHLORIDE 109 mEq/L (98-107); CREATININE 0.8 mg/dL (0.6-1.0); GLUCOSE 134 mg/dL (70-105); POTASSIUM 4.3 mEq/L (3.5-5.1); SODIUM 142 mEq/L (136-145); UREA NITROGEN BLOOD 18 mg/dL (9-23)
[2023-04-14 08:00] VITALS: BP 148/72; PULSE 79; RESP 17; TEMP 97.2
[2023-04-14] MEDS: ASPIRIN 81MG EC TABLET PO SCH (09:07)
[2023-04-14] MEDS: LOSARTAN 100 MG TABLET PO SCH (09:07)
[2023-04-14] MEDS: APIXABAN 5 MG TABLET PO SCH (09:07)
[2023-04-14] MEDS: FLECAINIDE 50MG TABLET PO SCH (09:09)
[2023-04-14] MEDS: DILTIAZEM HCL 120MG CAPSULE ER 24HR PO SCH (09:09)
[2023-04-14] MEDS: HYDROCORTISONE 2.5% OINT 20GM TOP SCH (09:13)
[2023-04-14 12:00] VITALS: BP 130/69; PULSE 76; RESP 19; TEMP 97.2
[2023-04-14 12:17] VITALS: BP 130/69; PULSE 74; TEMP 97.8; O2SAT 98
== END 2023-04-14 14:44 | disposition home or self-care (01) | DRG 273 ==
LOC: ER 17:22 → MICUSO 04-10 02:59 → 8WST 04-10 12:10 → 3WST 04-12 15:41
PROVIDERS: ADMIT Internal Medicine; ATTEND Internal Medicine
PROC: 02583ZZ Destruction of Conduction Mechanism, Percutaneous Approach (ICD-10-PCS; principal; 2023-04-12)
PROC: 4A0234Z Measurement of Cardiac Electrical Activity, Percutaneous Approach (ICD-10-PCS; 2023-04-12)
PROC: 4A023N8 Measurement of Cardiac Sampling and Pressure, Bilateral, Percutaneous Approach (ICD-10-PCS; 2023-04-12)
PROC: 5A2204Z Restoration of Cardiac Rhythm, Single (ICD-10-PCS; 2023-04-12)
DX: I48.4 Atypical atrial flutter (principal); J96.00 Acute respiratory failure, unspecified whether with hypoxia or hypercapnia; I13.0 Hypertensive heart and chronic kidney disease with heart failure and stage 1 through stage 4 chronic kidney disease, or unspecified chronic kidney disease; N17.9 Acute kidney failure, unspecified; I50.32 Chronic diastolic (congestive) heart failure; I48.11 Longstanding persistent atrial fibrillation; I48.92 Unspecified atrial flutter; E03.9 Hypothyroidism, unspecified; N18.9 Chronic kidney disease, unspecified; E11.22 Type 2 diabetes mellitus with diabetic chronic kidney disease; M60.9 Myositis, unspecified; M16.0 Bilateral primary osteoarthritis of hip; I27.21 Secondary pulmonary arterial hypertension; E66.01 Morbid (severe) obesity due to excess calories; E78.00 Pure hypercholesterolemia, unspecified; I25.10 Atherosclerotic heart disease of native coronary artery without angina pectoris; J45.909 Unspecified asthma, uncomplicated; Z63.4 Disappearance and death of family member; Z68.39 Body mass index [BMI] 39.0-39.9, adult; Z79.01 Long term (current) use of anticoagulants; Z79.899 Other long term (current) drug therapy; Z80.1 Family history of malignant neoplasm of trachea, bronchus and lung; Z82.3 Family history of stroke; Z82.41 Family history of sudden cardiac death; Z82.49 Family history of ischemic heart disease and other diseases of the circulatory system; Z82.5 Family history of asthma and other chronic lower respiratory diseases; Z83.3 Family history of diabetes mellitus
CPT/HCPCS: 36415; 71045; 80048; 80053; 82550; 82553; 82962; 83036; 83880; 84439; 84443; 84481; 84484; 85025; 85347; 85379; 92960; 93005; 93306; 93655; 93656; 93970; 99285; C1731; C1732; C1759; C1893; J0690; J1100; J1170; J1644; J1815; J1940; J2250; J2370; J2405; J2704; J2710; J2720; J3010; J3490; J7030

== ENCOUNTER → 2023-04-27 | Outpatient (CLI) | payer BC ==
[~2023-04-27] MED LIST changes: -AMLO10TA80 PO; -ATOR10TA PO; +ATOR40TA70 PO; -BIOT25008 PO; -BIOT5000 PO; -BISA-81 MT; -CHOL500010 MT; -CLON-493 PO; -CYAN1TAB43 MT; +DILT-26 PO; -DILT120T13 MT; -DOCU-155 PO; -FLEC50TA2 MT; +FLEC50TA2 PO; -FURO-151 MT; -HYDR25TA MT; -INSU100I22 SQ; -LOSA100T33 MT; +POTA-205 PO; -POTA-216 MT; +SILD20TA PO; +TIRZ2.5P SQ; -TRAM100C3 PO; +TRAM50TA3 PO
[2023-04-27 11:34] LABS: BASOPHILS % 0.9 % (0.0-2.0); EOSINOPHILS % 3.1 % (0.0-5.0); HEMATOCRIT. 32.8 % (36.0-48.0); HEMOGLOBIN. 10.6 g/dL (12.0-16.0); LYMPHOCYTES % 13.2 % (20.0-50.0); MEAN CORPUSCULAR HEMOGLOBIN 26.2 pg (28.0-32.0); MEAN CORPUSCULAR HGB CONC 32.3 g/dL (31.0-37.0); MEAN CORPUSCULAR VOLUME 81.2 fL (81.0-99.0); MEAN PLATELET VOLUME 7.4 fl (7.4-10.4); MONOCYTES % 7.7 % (2.0-8.0); NEUTROPHILS % 75.1 % (40.0-76.0); PLATELET 317 x1000/uL (130-400); RED BLOOD CELL COUNT 4.04 mill/uL (4.2-5.4); RED CELL DISTRIBUTION WIDTH 16.6 % (11.6-14.6); WHITE BLOOD COUNT 6.4 x1000/uL (4.5-11.0)
[2023-04-27 11:48] LABS: ALANINE AMINOTRANSFERASE 13 IU/L (10-49); ALBUMIN 4.1 g/dL (3.2-4.8); ASPARTATE AMINOTRANSFERASE 13 IU/L (<34); BILIRUBIN TOTAL 0.3 mg/dL (0.1-1.0); CALCIUM 9.5 mg/dL (8.7-10.4); CARBON DIOXIDE 28 mEq/L (21-32); CHLORIDE 105 mEq/L (98-107); CHOLESTEROL 146 mg/dL (<200); CREATININE 1.2 mg/dL (0.6-1.0); GLUCOSE 134 mg/dL (70-105); HDL CHOLESTEROL 45 mg/dL (>65); LDL CHOLESTEROL 106 mg/dL (5-100); POTASSIUM 4.7 mEq/L (3.5-5.1); PROTEIN TOTAL 6.4 g/dL (6.0-8.3); SODIUM 139 mEq/L (136-145); THYROID STIMULATING HORMONE 1.35 uIU/mL (0.55-4.78); TRIGLYCERIDE 72 mg/dL (0-150); UREA NITROGEN BLOOD 26 mg/dL (9-23)
[2023-04-28 09:09] LABS: ANTI-NUCLEAR ANTIBODIES DIRECT Negative (Negative)
[2023-04-29 09:06] LABS: ANTI-MYELOPEROXIDASE AB < 0.2 units (0.0-0.9); ANTI-PROTEINASE 3 ABS < 0.2 units (0.0-0.9)
[2023-05-01 13:06] LABS: ATYPICAL P-ANCA <1:20 titer (Neg:<1:20); CYTOPLASMIC C-ANCA <1:20 titer (Neg:<1:20); PERINUCLEAR P-ANCA <1:20 titer (Neg:<1:20)
== END | disposition home or self-care (01) ==
LOC: LAB 10:59
PROVIDERS: ATTEND Specialist
DX: R94.31 Abnormal electrocardiogram [ECG] [EKG] (principal); I11.9 Hypertensive heart disease without heart failure; E78.2 Mixed hyperlipidemia
CPT/HCPCS: 36415; 80053; 80061; 83036; 83520; 84443; 85025; 86038; 86256; 86430

== ENCOUNTER → 2023-05-02 | Outpatient (CLI) | payer BC | END | disposition home or self-care (01) | LOC: PF 10:23 | PROVIDERS: ATTEND Internal Medicine Critical Care Medicine | DX: R06.02 Shortness of breath (principal); Z20.822 Contact with and (suspected) exposure to COVID-19 | CPT/HCPCS: 94727; 87426; 94010; 94729; C9803 ==

== ENCOUNTER → 2023-06-16 | Outpatient (CLI) | payer BC ==
[2023-06-16 12:58] LABS: BASOPHILS % 0.6 % (0.0-2.0); EOSINOPHILS % 2.2 % (0.0-5.0); HEMATOCRIT. 33.3 % (36.0-48.0); HEMOGLOBIN. 10.9 g/dL (12.0-16.0); LYMPHOCYTES % 18.4 % (20.0-50.0); MEAN CORPUSCULAR HEMOGLOBIN 26.6 pg (28.0-32.0); MEAN CORPUSCULAR HGB CONC 32.7 g/dL (31.0-37.0); MEAN CORPUSCULAR VOLUME 81.3 fL (81.0-99.0); MEAN PLATELET VOLUME 7.3 fl (7.4-10.4); NEUTROPHILS % 70.8 % (40.0-76.0); PLATELET 275 x1000/uL (130-400); RED BLOOD CELL COUNT 4.09 mill/uL (4.2-5.4); RED CELL DISTRIBUTION WIDTH 16.4 % (11.6-14.6); WHITE BLOOD COUNT 5.8 x1000/uL (4.5-11.0)
[2023-06-16 16:51] LABS: ALANINE AMINOTRANSFERASE 8 IU/L (10-49); ASPARTATE AMINOTRANSFERASE 11 IU/L (<34); BILIRUBIN TOTAL 0.4 mg/dL (0.1-1.0); CALCIUM 9.6 mg/dL (8.7-10.4); CARBON DIOXIDE 18 mEq/L (21-32); CHLORIDE 107 mEq/L (98-107); CHOLESTEROL 158 mg/dL (<200); CREATININE 1.2 mg/dL (0.6-1.0); GLUCOSE 92 mg/dL (70-105); HDL CHOLESTEROL 51 mg/dL (>65); IRON 37 ug/dL (50-170); LDL CHOLESTEROL 86 mg/dL (5-100); POTASSIUM 5.2 mEq/L (3.5-5.1); PROTEIN TOTAL 7.2 g/dL (6.0-8.3); SODIUM 138 mEq/L (136-145); T4 FREE 1.42 ng/dL (0.89-1.76); THYROID STIMULATING HORMONE 0.31 uIU/mL (0.55-4.78); TOTAL IRON BINDING CAPACITY 206 ug/dl (250-425); TRIGLYCERIDE 74 mg/dL (0-150); UREA NITROGEN BLOOD 32 mg/dL (9-23)
== END | disposition home or self-care (01) ==
LOC: LAB 12:07
PROVIDERS: ATTEND Internal Medicine Endocrinology, Diabetes & Metabolism
DX: E11.9 Type 2 diabetes mellitus without complications (principal); E55.9 Vitamin D deficiency, unspecified; E78.00 Pure hypercholesterolemia, unspecified; D64.9 Anemia, unspecified
CPT/HCPCS: 36415; 80053; 80061; 82306; 83036; 83540; 83550; 84439; 84443; 85025

== ENCOUNTER → 2023-06-27 | Outpatient (CLI) | payer BC ==
[~2023-06-27] VITALS: Ht 162.6 cm; Wt 105.7 kg
[~2023-06-27] MED LIST changes: +IOHEXOL-350 100 ML BOTTLE ONE; +NITROGLYCERIN SPRAY/4.9GM CAN TL ONE
== END | disposition home or self-care (01) ==
LOC: CT 09:57
PROVIDERS: ATTEND Specialist
DX: I25.10 Atherosclerotic heart disease of native coronary artery without angina pectoris (principal); I34.0 Nonrheumatic mitral (valve) insufficiency
CPT/HCPCS: 75571; Q9967

== ENCOUNTER → 2023-11-02 | Outpatient (CLI) | payer BC ==
[~2023-11-02] MED LIST changes: -IOHEXOL-350 100 ML BOTTLE ONE; -NITROGLYCERIN SPRAY/4.9GM CAN TL ONE
[2023-11-02 12:48] LABS: BASOPHILS % 0.4 % (0.0-2.0); DIFFERENTIAL COMMENT 0; EOSINOPHILS % 0.3 % (0.0-5.0); HEMATOCRIT. 33.3 % (36.0-48.0); MEAN CORPUSCULAR HEMOGLOBIN 26.1 pg (28.0-32.0); MEAN CORPUSCULAR VOLUME 79.3 fL (81.0-99.0); MEAN PLATELET VOLUME 7.2 fl (7.4-10.4); MONOCYTES % 9.8 % (2.0-8.0); NEUTROPHILS % 73.5 % (40.0-76.0); PLATELET 318 x1000/uL (130-400); RED CELL DISTRIBUTION WIDTH 16.7 % (11.6-14.6); WHITE BLOOD COUNT 7.9 x1000/uL (4.5-11.0)
[2023-11-02 12:57] LABS: CHLORIDE 107 mEq/L (98-107); SODIUM 139 mEq/L (136-145)
[2023-11-02 12:58] LABS: CARBON DIOXIDE 26 mEq/L (21-32)
[2023-11-02 13:03] LABS: CREATININE 1.3 mg/dL (0.6-1.0); GLUCOSE 107 mg/dL (70-105)
[2023-11-02 13:04] LABS: LDL CHOLESTEROL 108 mg/dL (5-100); TRIGLYCERIDE 76 mg/dL (0-150); UREA NITROGEN BLOOD 31 mg/dL (9-23)
[2023-11-02 13:05] LABS: ALANINE AMINOTRANSFERASE 11 IU/L (10-49); ALBUMIN 4.6 g/dL (3.2-4.8); ASPARTATE AMINOTRANSFERASE 14 IU/L (<34); CHOLESTEROL 162 mg/dL (<200); HDL CHOLESTEROL 51 mg/dL (>65)
[2023-11-02 13:06] LABS: BILIRUBIN TOTAL 0.5 mg/dL (0.1-1.0); PROTEIN TOTAL 7.1 g/dL (6.0-8.3)
[2023-11-02 13:08] LABS: T4 FREE 1.54 ng/dL (0.89-1.76); THYROID STIMULATING HORMONE 0.22 uIU/mL (0.55-4.78)
[2023-11-04 13:07] LABS: *CREATININE RANDOM URINE 25.9 mg/dL (Not Estab.); MICROALBUMIN RANDOM URINE 4.7 ug/mL (Not Estab.)
== END | disposition home or self-care (01) ==
LOC: LAB 12:11
PROVIDERS: ATTEND Internal Medicine Endocrinology, Diabetes & Metabolism
DX: E11.9 Type 2 diabetes mellitus without complications (principal); E03.9 Hypothyroidism, unspecified; E55.9 Vitamin D deficiency, unspecified; E78.00 Pure hypercholesterolemia, unspecified
CPT/HCPCS: 36415; 80053; 80061; 82043; 82306; 82570; 83036; 84439; 84443; 85025

== ENCOUNTER → 2024-01-19 | Outpatient (CLI) | payer BC ==
[2024-01-19 07:54] LABS: CHLORIDE 108 mEq/L (98-107); SODIUM 138 mEq/L (136-145)
[2024-01-19 07:55] LABS: CALCIUM 9.8 mg/dL (8.7-10.4); CARBON DIOXIDE 23 mEq/L (21-32)
[2024-01-19 07:58] LABS: BASOPHILS % 0.8 % (0.0-2.0); HEMATOCRIT. 33.8 % (36.0-48.0); HEMOGLOBIN. 10.7 g/dL (12.0-16.0); LYMPHOCYTES % 22.4 % (20.0-50.0); MEAN CORPUSCULAR HEMOGLOBIN 25.8 pg (28.0-32.0); MEAN CORPUSCULAR HGB CONC 31.6 g/dL (31.0-37.0); MEAN CORPUSCULAR VOLUME 81.4 fL (81.0-99.0); MEAN PLATELET VOLUME 7.7 fl (7.4-10.4); MONOCYTES % 10.6 % (2.0-8.0); NEUTROPHILS % 62.2 % (40.0-76.0); PLATELET 280 x1000/uL (130-400); RED BLOOD CELL COUNT 4.15 mill/uL (4.2-5.4); RED CELL DISTRIBUTION WIDTH 17.4 % (11.6-14.6)
[2024-01-19 08:00] LABS: CREATININE 1.2 mg/dL (0.6-1.0); GLUCOSE 105 mg/dL (70-105); UREA NITROGEN BLOOD 28 mg/dL (9-23)
[2024-01-19 08:01] LABS: T4 FREE 1.51 ng/dL (0.89-1.76); THYROID STIMULATING HORMONE 0.12 uIU/mL (0.55-4.78)
[2024-01-19 08:02] LABS: ALANINE AMINOTRANSFERASE 11 IU/L (10-49); ALBUMIN 4.4 g/dL (3.2-4.8); ASPARTATE AMINOTRANSFERASE 13 IU/L (<34); BILIRUBIN TOTAL 0.3 mg/dL (0.1-1.0); PROTEIN TOTAL 6.7 g/dL (6.0-8.3)
== END | disposition home or self-care (01) ==
LOC: LAB 07:20
PROVIDERS: ATTEND Internal Medicine Endocrinology, Diabetes & Metabolism
DX: E11.9 Type 2 diabetes mellitus without complications (principal); D64.9 Anemia, unspecified; E03.9 Hypothyroidism, unspecified
CPT/HCPCS: 36415; 80053; 84439; 84443; 85025

== ENCOUNTER → 2024-01-25 | Outpatient (CLI) | payer BC | END | disposition home or self-care (01) | LOC: MAMMO 12:21 | PROVIDERS: ATTEND Internal Medicine Endocrinology, Diabetes & Metabolism | DX: Z12.31 Encounter for screening mammogram for malignant neoplasm of breast (principal) | CPT/HCPCS: 77063; 77067 ==

== ENCOUNTER → 2024-02-23 | Outpatient (CLI) | payer BC ==
[~2024-02-23] MED LIST changes: -SILD20TA PO; +SILD20TA13 PO
[2024-02-23 10:53] LABS: BASOPHILS % 0.8 % (0.0-2.0); EOSINOPHILS % 4.9 % (0.0-5.0); HEMATOCRIT. 33.8 % (36.0-48.0); HEMOGLOBIN. 11.1 g/dL (12.0-16.0); LYMPHOCYTES % 15.9 % (20.0-50.0); MEAN CORPUSCULAR HEMOGLOBIN 26.9 pg (28.0-32.0); MEAN CORPUSCULAR HGB CONC 32.7 g/dL (31.0-37.0); MEAN CORPUSCULAR VOLUME 82.3 fL (81.0-99.0); MEAN PLATELET VOLUME 7.7 fl (7.4-10.4); MONOCYTES % 7.9 % (2.0-8.0); NEUTROPHILS % 70.5 % (40.0-76.0); PLATELET 271 x1000/uL (130-400); RED CELL DISTRIBUTION WIDTH 16.7 % (11.6-14.6); WHITE BLOOD COUNT 5.1 x1000/uL (4.5-11.0)
[2024-02-23 11:02] LABS: CHLORIDE 109 mEq/L (98-107); POTASSIUM 4.2 mEq/L (3.5-5.1); SODIUM 141 mEq/L (136-145)
[2024-02-23 11:03] LABS: CALCIUM 9.4 mg/dL (8.7-10.4); CARBON DIOXIDE 26 mEq/L (21-32)
[2024-02-23 11:08] LABS: GLUCOSE 103 mg/dL (70-105); TRIGLYCERIDE 82 mg/dL (0-150); UREA NITROGEN BLOOD 19 mg/dL (9-23)
[2024-02-23 11:09] LABS: LDL CHOLESTEROL 82 mg/dL (5-100)
[2024-02-23 11:10] LABS: ALANINE AMINOTRANSFERASE 12 IU/L (10-49); ALBUMIN 4.3 g/dL (3.2-4.8); ASPARTATE AMINOTRANSFERASE 15 IU/L (<34); BILIRUBIN TOTAL 0.5 mg/dL (0.1-1.0); CHOLESTEROL 142 mg/dL (<200); HDL CHOLESTEROL 50 mg/dL (>65); PROTEIN TOTAL 6.9 g/dL (6.0-8.3)
[2024-02-23 11:12] LABS: T4 FREE 1.49 ng/dL (0.89-1.76); THYROID STIMULATING HORMONE 0.54 uIU/mL (0.55-4.78)
== END | disposition home or self-care (01) ==
LOC: LAB 08:57
PROVIDERS: ATTEND Internal Medicine Endocrinology, Diabetes & Metabolism
DX: I10 Essential (primary) hypertension (principal); E11.9 Type 2 diabetes mellitus without complications; E55.9 Vitamin D deficiency, unspecified; E03.9 Hypothyroidism, unspecified; E78.00 Pure hypercholesterolemia, unspecified
CPT/HCPCS: 36415; 80053; 80061; 82306; 83036; 84439; 84443; 85025

== ENCOUNTER → 2024-02-23 | Outpatient (CLI) | payer BC ==
[2024-02-23 10:56] LABS: CLARITY URINE CLEAR (CLEAR); COLOR URINE YELLOW (YELLOW); GLUCOSE URINE 3+ (NEGATIVE); KETONES URINE NEGATIVE (NEGATIVE); LEUKOCYTE ESTERASE URINE NEGATIVE (NEGATIVE); NITRITE URINE NEGATIVE (NEGATIVE); OCCULT BLOOD URINE NEGATIVE (NEGATIVE); PROTEIN URINE NEGATIVE (NEGATIVE); SPECIFIC GRAVITY URINE 1.011 (1.005-1.030); UROBILINOGEN URINE 0.2 E.U./dL (0.2-1.0)
[2024-02-23 11:27] LABS: BACTERIA URINE FEW; RBC URINE NONE SEEN /hpf (0-2); SQUAMOUS EPITHELIAL CELL URINE NONE SEEN /lpf (RARE/1+); WBC URINE 0-2 /hpf (0-2); YEAST URINE NONE SEEN
== END | disposition home or self-care (01) ==
LOC: US 08:48
PROVIDERS: ATTEND Internal Medicine Nephrology
DX: N18.30 Chronic kidney disease, stage 3 unspecified (principal)
CPT/HCPCS: 36415; 76770; 81003; 83735

== ENCOUNTER → 2024-03-22 | Outpatient (CLI) | payer BC ==
[2024-03-22 08:57] LABS: BASOPHILS % 0.4 % (0.0-2.0); EOSINOPHILS % 5.6 % (0.0-5.0); HEMATOCRIT. 34.6 % (36.0-48.0); HEMOGLOBIN. 10.9 g/dL (12.0-16.0); LYMPHOCYTES % 14.3 % (20.0-50.0); MEAN CORPUSCULAR HGB CONC 31.5 g/dL (31.0-37.0); MEAN CORPUSCULAR VOLUME 82.6 fL (81.0-99.0); MEAN PLATELET VOLUME 7.5 fl (7.4-10.4); MONOCYTES % 7.3 % (2.0-8.0); NEUTROPHILS % 72.4 % (40.0-76.0); PLATELET 284 x1000/uL (130-400); RED BLOOD CELL COUNT 4.19 mill/uL (4.2-5.4); RED CELL DISTRIBUTION WIDTH 16.7 % (11.6-14.6)
[2024-03-22 09:47] LABS: IRON 45 ug/dL (50-170)
[2024-03-22 09:50] LABS: TOTAL IRON BINDING CAPACITY 290 ug/dl (250-425)
[2024-03-22 13:19] LABS: VITAMIN B12 SERUM 469 pg/mL (211-911)
== END | disposition home or self-care (01) ==
LOC: CARD 08:02
PROVIDERS: ATTEND Specialist
DX: I08.8 Other rheumatic multiple valve diseases (principal); R06.02 Shortness of breath; I11.9 Hypertensive heart disease without heart failure; E78.2 Mixed hyperlipidemia; R94.31 Abnormal electrocardiogram [ECG] [EKG]
CPT/HCPCS: 36415; 82607; 83540; 83550; 85025; 85044; 93306

== ENCOUNTER → 2024-09-11 | Outpatient (CLI) | payer MEDICARE ==
[2024-09-11 10:42] LABS: BASOPHILS % 0.8 % (0.0-2.0); DIFFERENTIAL COMMENT 0; EOSINOPHILS % 2.8 % (0.0-5.0); HEMATOCRIT. 30.1 % (36.0-48.0); HEMOGLOBIN. 9.3 g/dL (12.0-16.0); LYMPHOCYTES % 14.9 % (20.0-50.0); MEAN CORPUSCULAR HEMOGLOBIN 24.9 pg (28.0-32.0); MEAN CORPUSCULAR HGB CONC 30.7 g/dL (31.0-37.0); MEAN PLATELET VOLUME 7.4 fl (7.4-10.4); MONOCYTES % 7.2 % (2.0-8.0); NEUTROPHILS % 74.3 % (40.0-76.0); PLATELET 276 x1000/uL (130-400); RED BLOOD CELL COUNT 3.72 mill/uL (4.2-5.4); RED CELL DISTRIBUTION WIDTH 16.8 % (11.6-14.6); WHITE BLOOD COUNT 5.3 x1000/uL (4.5-11.0)
[2024-09-11 11:17] LABS: CHLORIDE 110 mEq/L (98-107); POTASSIUM 4.8 mEq/L (3.5-5.1); SODIUM 142 mEq/L (136-145)
[2024-09-11 11:20] LABS: CALCIUM 10.4 mg/dL (8.7-10.4)
[2024-09-11 11:22] LABS: CARBON DIOXIDE 23 mEq/L (21-32)
[2024-09-11 11:25] LABS: ALANINE AMINOTRANSFERASE 9 IU/L (10-49); ASPARTATE AMINOTRANSFERASE 12 IU/L (<34)
[2024-09-11 11:27] LABS: ALBUMIN 3.9 g/dL (3.2-4.8); GLUCOSE 133 mg/dL (70-105); TRIGLYCERIDE 86 mg/dL (0-150); UREA NITROGEN BLOOD 33 mg/dL (9-23)
[2024-09-11 11:28] LABS: LDL CHOLESTEROL 73 mg/dL (5-100); THYROID STIMULATING HORMONE 1.46 uIU/mL (0.55-4.78)
[2024-09-11 11:29] LABS: BILIRUBIN TOTAL 0.4 mg/dL (0.1-1.0); CHOLESTEROL 142 mg/dL (<200); HDL CHOLESTEROL 55 mg/dL (>65); PROTEIN TOTAL 6.8 g/dL (6.0-8.3)
[2024-09-11 12:20] LABS: CREATININE 1.4 mg/dL (0.6-1.0)
[2024-09-12 09:09] LABS: VITAMIN D 25-OH 38.7 ng/mL (30.0-100.0)
[2024-09-13 08:08] LABS: *CREATININE RANDOM URINE 36.9 mg/dL (Not Estab.); MICROALBUMIN RANDOM URINE 13.3 ug/mL (Not Estab.)
== END | disposition home or self-care (01) ==
LOC: LAB 09:30
PROVIDERS: ATTEND Internal Medicine Endocrinology, Diabetes & Metabolism
DX: I13.0 Hypertensive heart and chronic kidney disease with heart failure and stage 1 through stage 4 chronic kidney disease, or unspecified chronic kidney disease (principal); E11.22 Type 2 diabetes mellitus with diabetic chronic kidney disease; N18.9 Chronic kidney disease, unspecified; I50.9 Heart failure, unspecified; E03.9 Hypothyroidism, unspecified; E78.5 Hyperlipidemia, unspecified; E55.9 Vitamin D deficiency, unspecified
CPT/HCPCS: 36415; 80053; 80061; 82043; 82306; 82570; 83036; 84439; 84443; 85025

== ENCOUNTER → 2024-09-11 | Outpatient (CLI) | payer MEDICARE | END | disposition home or self-care (01) | LOC: LAB 09:40 | PROVIDERS: ATTEND Specialist | DX: E78.2 Mixed hyperlipidemia (principal); I50.32 Chronic diastolic (congestive) heart failure; Z79.899 Other long term (current) drug therapy | CPT/HCPCS: 36415; 83880 ==

== ENCOUNTER → 2024-09-11 | Outpatient (CLI) | payer MEDICARE ==
[2024-09-11 11:34] LABS: CLARITY URINE CLEAR (CLEAR); COLOR URINE YELLOW (YELLOW); GLUCOSE URINE NEGATIVE (NEGATIVE); KETONES URINE NEGATIVE (NEGATIVE); OCCULT BLOOD URINE NEGATIVE (NEGATIVE); PROTEIN URINE NEGATIVE (NEGATIVE); SPECIFIC GRAVITY URINE 1.009 (1.005-1.030)
[2024-09-11 11:35] LABS: LEUKOCYTE ESTERASE URINE TRACE (NEGATIVE); NITRITE URINE NEGATIVE (NEGATIVE); UROBILINOGEN URINE 0.2 E.U./dL (0.2-1.0)
[2024-09-11 12:54] LABS: HYALINE CASTS URINE 0-5 /lpf
[2024-09-11 12:55] LABS: SQUAMOUS EPITHELIAL CELL URINE FEW /lpf (RARE/1+)
[2024-09-11 12:56] LABS: RBC URINE NONE SEEN /hpf (0-2); WBC URINE 0-2 /hpf (0-2)
[2024-09-11 12:57] LABS: BACTERIA URINE NONE SEEN
== END | disposition home or self-care (01) ==
LOC: LAB 09:17
PROVIDERS: ATTEND Internal Medicine Nephrology
DX: I13.0 Hypertensive heart and chronic kidney disease with heart failure and stage 1 through stage 4 chronic kidney disease, or unspecified chronic kidney disease (principal); E11.22 Type 2 diabetes mellitus with diabetic chronic kidney disease; N18.1 Chronic kidney disease, stage 1; I50.9 Heart failure, unspecified
CPT/HCPCS: 81003